=== PATIENT | male | born 1950 | race Caucasian/White ===

== ENCOUNTER 2017-10-17 09:34 | Emergency (ER) | payer MEDICARE, OTHER ==
[2015-12-06 11:47] VITALS: Ht 175.3 cm; Wt 77.1 kg
[~2017-10-17] VITALS: Ht 175.3 cm; Wt 77.1 kg
[~2017-10-17 09:34] MED LIST: ASP325 PO; ASPI-274 PO; ASPI-757 PO; AZIT-18 PO; CEF300 PO; CLOP75TA PO; CLOP75TA43 PO; DIP25 PO; FEN145 PO; FLU60SYR30 IM ONLY; GLY25 PO; HUMALOG SC; INSU100C14 SQ; INSU100I36 SQ; LANI SQ; LANI SUBQ; LEV2I PO; LEVI SUBQ; LEVO-3 PO; LEVO75TA73 PO; LOSA100T67 PO; LOSA50TA72 PO; METF-420 PO; METF10002 PO; METO1TAB19 PO; METO50TA19 PO; NITROGLYCERIN; NOVOLOG SUBQ; OLME40TA17 PO; PRE50 PO; PREG75CA60 PO; ROS10 PO; ROSI1TAB PO; ROSU20TA23 PO; [UNRECOGNIZED DRUG - CODE] PO
--- NOTE | 2017-10-17 09:54 | ER Report ---
History and Physical Time Seen By : 09:50 Hx. of Stated Complaint: CHAPARRITA FROM PT REPORTS PT "STUMBLED" AT PT, HIGH BP AT PT. PT REPORTS NO SYMPTOMS, "DON'T KNOW WHY I'M HERE". HX OF MULTIPLE STROKES AND MIS HPI/ROS CHIEF COMPLAINT: elevated blood pressure, stumbling HISTORY OF PRESENT ILLNESS: This is a 66 year old male. He was at physical therapy. He always has some elevated blood pressure, and usually decreases with his PT. Unsure why this is. He takes Losartan and Metoprolol on a regular basis and has not missed any medicines. He has type 2 diabetes and admits that he does not actively control this. He was stumbled in PT and with the elevated blood pressure, they elected to cancel his appointment and have him come the the ER for further evaluation. History of multiple strokes and cardiovascular disease. He currently has no symptoms. Denies headaches, dizziness, vision changes, weakness or numbness. No chest pain, palpitations, or shortness of breath. No recent illness, fevers or cough. Allergies: Coded Allergies: No Known Drug Allergies (Verified , 10/17/17) Home Meds Active Scripts Rosuvastatin Calcium (CRESTOR) 20 Mg Tablet, 20 MG PO QDAY, #90 TAB Prov:JORGITO LIZ MD 10/17/17 Levothyroxine Sodium (LEVOTHYROXINE SODIUM) 75 Mcg Tablet, 75 MCG PO QDAY, #90 TAB Prov:JORGITO LIZ MD 09/05/17 Pregabalin (LYRICA) 75 Mg Capsule, 1 CAP PO BID, #180 CAPSULE 4 Refills Prov:JORGITO LIZ MD 08/02/17 Metformin Hcl (METFORMIN HCL) 1,000 Mg Tablet, 1 TAB PO BID, #180 TAB 3 Refills Prov:JORGITO LIZ MD 07/28/17 Clopidogrel Bisulfate (PLAVIX) 75 Mg Tablet, 1 TAB PO QDAY, #90 TAB 4 Refills Prov:JORGITO LIZ MD 07/11/17 Reported Medications Metoprolol Succinate (METOPROLOL SUCCINATE) 50 Mg Tab.er.24h, 1 TAB PO QDAY, TAB 02/09/17 Losartan Potassium (LOSARTAN POTASSIUM) 100 Mg Tablet, 50 MG PO QDAY 02/09/17 Insulin Detemir (LEVEMIR) 100 Unit/Ml Injs, 65 UNIT SUBQ 02/09/17 Aspirin (ASPIRIN) 325 Mg Tablet, 325 MG PO QDAY, TAB 02/09/17 Reviewed Nurses Notes: Yes Hx Smoking: Yes Hx Substance Use Disorder: No Hx Alcohol Use: No Constitutional Vital Sign - Last 24 Hours 10/17/17 10/17/17 10/17/17 10/17/17 09:35 09:42 09:49 10:00 Temp 98.6 Pulse 72 73 Resp 16 B/P (MAP) 159/109 159/109 (126) 156/87 (110) Pulse Ox 94 95 O2 Delivery Room Air 10/17/17 10/17/17 10/17/17 10/17/17 10:04 10:09 10:29 10:30 Pulse 72 71 71 B/P (MAP) 132/74 (93) Pulse Ox 97 94 93 10/17/17 10/17/17 10/17/17 10/17/17 10:34 10:54 11:00 11:09 Pulse 71 69 B/P (MAP) 140/79 (99) Pulse Ox 93 93 93 10/17/17 11:29 B/P (MAP) 146/84 (104) Physical Exam General Appearance: The patient is alert. No acute distress. Eyes: Pupils are equal, round. Reactive to light. No pallor, injection or icterus. Extraocular movements are intact. No nystagmus. ENT: Mucous membranes are moist. Normal oral mucosa. Posterior oropharynx is normal. Normal tympanic membranes and canals. Neck: Supple and non tender. No lymphadenopathy. Respiratory: Breathing easily and unlabored. Lungs are clear to auscultation. Cardiovascular: Regular rate and rhythm. No murmurs, gallops or rubs. Normal capillary refill. No edema. Gastrointestinal: Abdomen is soft and non tender. Nondistended. Normal active bowel sounds. Neurological: Alert and oriented x3. No focal neurologic deficits Skin: Warm and dry. No rashes. Musculoskeletal: Extremities are nontender. Full range of motion. No tenderness in palpation of the cervical, thoracic and lumbar spine. DIFFERENTIAL DIAGNOSIS: After history and physical exam, differential diagnosis was considered for elevated blood pressure, although no current symptoms. Will watch and add antihypertensive in as needed. Medical Decision Making Data Points Result Diagram: 10/17/17 0950 10/17/17 0950 Laboratory Hematology Test 10/17/17 09:50 10/17/17 10:01 Red Blood Count 5.55 M/uL (4.00-5.60) Mean Corpuscular Volume 87.4 fL (80.0-96.0) Mean Corpuscular Hemoglobin 29.3 pg (26.0-33.0) Mean Corpuscular Hemoglobin Concent 33.6 g/dL (32.0-36.0) Red Cell Distribution Width 15.0 % (11.5-14.5) Mean Platelet Volume 9.0 fL (7.2-11.1) Neutrophils (%) (Auto) 67.7 % (39.4-72.5) Lymphocytes (%) (Auto) 20.0 % (17.6-49.6) Monocytes (%) (Auto) 8.0 % (4.1-12.4) Eosinophils (%) (Auto) 3.1 % (0.4-6.7) Basophils (%) (Auto) 1.2 % (0.3-1.4) Nucleated RBC Relative Count (auto) 0.0 /100WBC Neutrophils # (Auto) 5.4 K/uL (2.0-7.4) Lymphocytes # (Auto) 1.6 K/uL (1.3-3.6) Monocytes # (Auto) 0.6 K/uL (0.3-1.0) Eosinophils # (Auto) 0.2 K/uL (0.0-0.5) Basophils # (Auto) 0.1 K/uL (0.0-0.1) Nucleated RBC Absolute Count (auto) 0.00 K/uL Peripheral Blood Smear Yes Y/N Sodium Level 139 mmol/L (137-145) Potassium Level 3.9 mmol/L (3.5-5.0) Chloride Level 102 mmol/L (98-107) Carbon Dioxide Level 23 mmol/L (22-30) Blood Urea Nitrogen 12 mg/dl (9-21) Creatinine 0.80 mg/dl (0.66-1.25) Glomerular Filtration Rate Calc > 60.0 Random Glucose 195 mg/dl (75-110) Calcium Level 9.4 mg/dl (8.4-10.2) Total Bilirubin 0.4 mg/dl (0.2-1.3) Aspartate Amino Transf (AST/SGOT) 21 U/L (0-35) Alanine Aminotransferase (ALT/SGPT) 29 U/L (0-56) Alkaline Phosphatase 121 U/L (0-126) Troponin I < 0.012 ng/ml Total Protein 7.2 gm/dl (6.3-8.2) Albumin 4.1 g/dl (3.5-5.0) Whole Blood Glucose 207 mg/DL (75-110) Chemistry Test 10/17/17 09:50 10/17/17 10:01 White Blood Count 8.0 k/uL (4.5-11.0) Red Blood Count 5.55 M/uL (4.00-5.60) Hemoglobin 16.3 g/dL (14.0-18.0) Hematocrit 48.5 % (42.0-52.0) Mean Corpuscular Volume 87.4 fL (80.0-96.0) Mean Corpuscular Hemoglobin 29.3 pg (26.0-33.0) Mean Corpuscular Hemoglobin Concent 33.6 g/dL (32.0-36.0) Red Cell Distribution Width 15.0 % (11.5-14.5) Platelet Count 170 K/uL (150-450) Mean Platelet Volume 9.0 fL (7.2-11.1) Neutrophils (%) (Auto) 67.7 % (39.4-72.5) Lymphocytes (%) (Auto) 20.0 % (17.6-49.6) Monocytes (%) (Auto) 8.0 % (4.1-12.4) Eosinophils (%) (Auto) 3.1 % (0.4-6.7) Basophils (%) (Auto) 1.2 % (0.3-1.4) Nucleated RBC Relative Count (auto) 0.0 /100WBC Neutrophils # (Auto) 5.4 K/uL (2.0-7.4) Lymphocytes # (Auto) 1.6 K/uL (1.3-3.6) Monocytes # (Auto) 0.6 K/uL (0.3-1.0) Eosinophils # (Auto) 0.2 K/uL (0.0-0.5) Basophils # (Auto) 0.1 K/uL (0.0-0.1) Nucleated RBC Absolute Count (auto) 0.00 K/uL Peripheral Blood Smear Yes Y/N Glomerular Filtration Rate Calc > 60.0 Calcium Level 9.4 mg/dl (8.4-10.2) Total Bilirubin 0.4 mg/dl (0.2-1.3) Aspartate Amino Transf (AST/SGOT) 21 U/L (0-35) Alanine Aminotransferase (ALT/SGPT) 29 U/L (0-56) Alkaline Phosphatase 121 U/L (0-126) Troponin I < 0.012 ng/ml Total Protein 7.2 gm/dl (6.3-8.2) Albumin 4.1 g/dl (3.5-5.0) Whole Blood Glucose 207 mg/DL (75-110) EKG/Imaging EKG Interpretation 12 lead EKG: Rhythm: Sinus rhythm with first-degree AV block, rate 72 [place]: normal QRS: normal ST segments: normal Imaging CHEST PA AND LAT COMPARISON: None. HISTORY: Elevated blood pressure, cough FINDINGS: CARDIAC/VASC: No cardiac silhouette abnormality or cardiomegaly. Unremarkable pulmonary vasculature. Intact sternotomy wires. Ascending aorta markers from previous CABG. MEDIASTINUM: No visible mass or adenopathy. LUNGS/PLEURA: No pneumothorax. No significant pulmonary parenchymal abnormalities. No effusion or pleural thickening. BONES: No fracture or visible bony lesion. OTHER:Negative. IMPRESSION: Sequela of prior CABG without evidence of acute cardiopulmonary pathology. Report Dictated By: Donte Shannon at 10/17/2017 10:[address] scan without contrast COMPARISONS: Report from exam dated December 04, 2015 ADDITIONAL PERTINENT HISTORY: Elevated blood pressure. TECHNIQUE: Multiple axial images were obtained from the skull base to the vertex without IV contrast. One of the following dose optimization techniques was utilized in the performance of this exam: Automated exposure control; adjustment of the mA and/or kV according to the patient's size; or use of an iterative reconstruction technique. Specific details can be referenced in the facility's radiology CT exam operational policy. FINDINGS: Midline shift: Negative Ventricles: Mild enlargement of the lateral and third ventricles, stable from previous exam. Brain parenchyma: Patchy hypoattenuation within the periventricular and subcortical white matter, nonspecific but likely representing small vessel ischemic change on a chronic basis. No intraparenchymal hemorrhage. Extra-axial spaces: Mild cerebral atrophy. Intracranial vasculature: Cavernous internal carotid artery calcifications. Otherwise negative Osseous structures: Negative Paranasal sinuses and mastoid air cells: Moderate lobular mucosal thickening involving both maxillary sinuses. Otherwise negative Surrounding soft tissues and orbits: Negative IMPRESSION: 1. Age related changes as described above. 2. No evidence of acute intracranial pathology. Report Dictated By: Wyatt Faust MD at 10/17/2017 10:46 AM ED Course/Re-evaluation Clinical Indication for ER IV: IV Access ED Course Blood pressure came down without need for any medication. Labs, EKG and imaging negative. He will follow-up with primary care. Decision to Disposition Date: Oct 17, 2017 Decision to Disposition Time: 11:30 Depart Departure Latest Vital Signs Vital Signs Date Time Temp Pulse Resp B/P (MAP) Pulse Ox O2 Delivery O2 Flow Rate FiO2 10/17/17 11:29 146/84 (104) 10/17/17 11:09 69 93 10/17/17 09:35 98.6 16 Room Air Impression: Primary Impression: Hypertension Condition: Improved Disposition: HOME OR SELF-CARE Patient Instructions: Hypertension (ED) Additional Instructions: With the exception of the initial blood pressure reading and one other, the blood pressure readings have been normal or slightly elevated while here in the ER. No changes to medications at this time. Follow-up with Dr. Rice as planned. Keep on going with your physical therapy and home. Problem Qualifiers Primary Impression: Hypertension Hypertension type: essential hypertension Qualified Codes: I10 - Essential ( primary) hypertension JUSTIN MIDDLETON MD Oct 17, 2017 09:54
[2017-10-17] MEDS ORDERED: LABETALOL HCL 20 MG/4 ML SYR IVP ONE (09:55)
[2017-10-17] MEDS ORDERED: LABETALOL HCL 100 MG/20ML VIAL IVP ONE (10:05)
[2017-10-17 10:26] LABS: PLATELET COUNT, AUTOMATED 170 K/uL (150-450)
--- NOTE | 2017-10-17 10:36 | RADIOLOGY IMAGING REPORT ---
FACILITY: [facility] - [place] PATIENT NAME: Toribio Angel : 1950 MR: [id number] V: [id number] EXAM DATE: ORDERING PHYSICIAN: JUSTIN MIDDLETON TECHNOLOGIST: Location: [facility] [place] Patient: Toribio Angel : 1950 Visit/Account:[id number] Date of Sevice: 10/17/2017 CHEST PA AND LAT COMPARISON: None. HISTORY: Elevated blood pressure, cough FINDINGS: CARDIAC/VASC: No cardiac silhouette abnormality or cardiomegaly. Unremarkable pulmonary vasculatu re. Intact sternotomy wires. Ascending aorta markers from previous CABG. MEDIASTINUM: No visible mass or adenopathy. LUNGS/PLEURA: No pneumothorax. No significant pulmonary parenchymal abnormalities. No effusion or p leural thickening. BONES: No fracture or visible bony lesion. OTHER:Negative. IMPRESSION: Sequela of prior CABG without evidence of acute cardiopulmonary pathology. Report Dictated By: Donte Shannon at 10/17/2017 10:30 AM Report E-Signed By: Donte Shannon at 10/17/2017 10:31 AM WSN:[id number]
--- NOTE | 2017-10-17 10:56 | RADIOLOGY IMAGING REPORT ---
FACILITY: [facility] - [place] PATIENT NAME: Toribio Angel : 1950 MR: [id number] V: [id number] EXAM DATE: ORDERING PHYSICIAN: JUSTIN MIDDLETON TECHNOLOGIST: Location: [facility] Patient: Toribio Angel : 1950 Visit/Account:[id number] Date of Sevice: 10/17/[address] scan without contrast COMPARISONS: Report from exam dated December 04, 2015 ADDITIONAL PERTINENT HISTORY: Elevated blood pressure. TECHNIQUE: Multiple axial images were obtained from the skull base to the vertex without IV contrast . One of the following dose optimization techniques was utilized in the performance of this exam: Aut omated exposure control; adjustment of the mA and/or kV according to the patient's size; or use of an iterative reconstruction technique. Specific details can be referenced in the facility's radiology CT exam operational policy. FINDINGS: Midline shift: Negative Ventricles: Mild enlargement of the lateral and third ventricles, stable from previous exam. Brain parenchyma: Patchy hypoattenuation within the periventricular and subcortical white matter, no nspecific but likely representing small vessel ischemic change on a chronic basis. No intraparenchym al hemorrhage. Extra-axial spaces: Mild cerebral atrophy. Intracranial vasculature: Cavernous internal carotid artery calcifications. Otherwise negative Osseous structures: Negative Paranasal sinuses and mastoid air cells: Moderate lobular mucosal thickening involving both maxillar y sinuses. Otherwise negative Surrounding soft tissues and orbits: Negative IMPRESSION: 1. Age related changes as described above. 2. No evidence of acute intracranial pathology. Report Dictated By: Wyatt Faust MD at 10/17/2017 10:46 AM Report E-Signed By: Wyatt Faust MD at 10/17/2017 10:52 AM WSN:[id number]
[2017-10-17 11:29] VITALS: BP 146/84
--- NOTE | 2017-10-17 11:46 | EKG ---
FACILITY: [facility] PATIENT NAME: KAREN SOLORIO : [id number] MR: [id number] V: [id number] EXAM DATE: ORDERING PHYSICIAN: JUSTIN MIDDLETON TECHNOLOGIST: RUPAL Meier Reason : HTN Blood Pressure : / mmHG Vent. Rate : 072 BPM Atrial Rate : 072 BPM P-R Int : 222 ms QRS Dur : 096 ms QT Int : 398 ms P-R-T Axes : 023 066 059 degrees QTc Int : 435 ms Sinus rhythm with 1st degree AV block Low voltage QRS No ST-T abnormalities When compared with ECG of 04-DEC-2015 18:33, Relatively unchanged, but the prvious has baseline artifact Confirmed by JUDY KEITH ([id number]) on 10/17/2017 3:54:33 PM Referred By: Confirmed By:JUDY KEITH
[2017-10-17] MEDS ORDERED: ROSU20TA23 PO (15:05)
== END 2017-10-17 11:40 | disposition home or self-care (01) ==
LOC: ER 09:34
DX: I10 Essential (primary) hypertension (principal); I44.0 Atrioventricular block, first degree; G31.9 Degenerative disease of nervous system, unspecified
CPT/HCPCS: 36416; 70450; 71046; 82040; 82247; 82310; 82374; 82435; 82565; 82947; 82948; 84075; 84132; 84155; 84295; 84450; 84460; 84484; 84520; 85025; 93005; 99284

== ENCOUNTER 2017-10-28 09:00 | Outpatient (RCR) | payer MEDICARE, OTHER ==
[2015-12-06 11:47] VITALS: BMI 24.1
--- NOTE | 2017-08-08 10:12 | PT PLAN OF CARE ---
Physician: Ritchie Robison MD Patient is being seen: 2x/week Therapist: Suraj Fontenot, PT, DPT Medical Diagnosis: CVA Treatment Diagnosis: same, altered gait, decreased R LE strength Date of Onset: 03/27/17 Date of Initial Evaluation: 04/27/17 Date patient was last seen: 08/08/17 Number of treatments: 27 Number of cancellations/No shows: 0 INTERVENTIONS: Manual Therapy/STM/MET Strengthening/condition Ice/Heat Range of Motion Spinal Stabilization Work Hardening/Cond Stretching Neuromuscular Re-ed Closed Chain Program Electrical Stim Posture/Body mechanics Gait Trg/Balance Trg Home Exercise Program Therapeutic Activities GOALS: 6 weeks: Pt will improve R hip flexion, abduction, adduction, extension, R knee flexion and extension, R ankle DF and PF from baseline to 4+/5 or greater to improve function and QOL. 6 weeks: Pt will be able to ambulate with increased R hip flexion and R knee flexion and decreased R knee hyperextension with R AFO donned to improve gait mechanics and decrease falls. 6 weeks: Pt will improve Tinetti Gait and Balance from to or greater to decrease fall risk and improve QOL. 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 He reports that he feels like he should be walking better than he is currently. He states that he typically has his falls transitioning from a sitting position to a standing position. He reports that he feels like his activity level is about the same as it was prior to the CVA. He states that he continues to have good days and bad days with fatigue. He continues to demonstrate R LE weakness as compared to his L LE, however, his R LE weakness is decreased in a non-weight bearing position and is increased in a weight bearing position. With the cane in his L UE and his R knee brace donned, he demonstrated equal step lengths, decreased R heel strike, normal base of support, decreased hip flexion, knee flexion, and ankle DF resulting in toe drag, increased control, and decreased LOB. He is independent on his HEP. We will probably see him 3-10 sessions to determine that he has maintained his gait changes and is independent on his HEP prior to discharge. Posture: He demonstrates increased B rounded shoulders, forward head position, increased thoracic kyphosis, and decreased lumbar lordosis. ROM: L hip flexion, abduction, adduction, extension, L knee flexion and extension, and L ankle DF and PF: WNL's with no pain. R hip flexion, extension , abduction, R knee flexion and extension: full AROM with gravity eliminated, R hip adduction, and R ankle PF and DF: WNL's. Strength: L hip flexion, abduction, adduction, extension, L knee flexion and extension, and L ankle DF and PF: 4+/5 to 5/5. R hip flexion, extension, abduction: 3/5, R knee flexion and extension: 3/5, R hip adduction, and R ankle PF and DF: 4+/5 (in non-weight bearing positions and DF less than 3/5 in functional standing position). Special Tests: Tinetti gait and balance: 26/28. 6 minute walk test: 990 feet. Hua balance: 50/56 Mobility: Supervision with cane as AD If you have any questions, please contact me at [phone]. Thank you, Suraj Fontenot, PT, DPT LIZZETTED
--- NOTE | 2017-09-29 11:02 | PT PLAN OF CARE ---
Physician: MARIELA WARD MD Patient is being seen: 2x/week Therapist: Suraj Fontenot, PT, DPT Medical Diagnosis: CVA Treatment Diagnosis: same, altered gait, decreased R LE strength Date of Onset: 03/27/17 Date of Initial Evaluation: 04/27/17 Date patient was last seen: 09/29/17 Number of treatments: 37 Number of cancellations/No shows: 3 INTERVENTIONS: Manual Therapy/STM/MET Strengthening/condition Ice/Heat Range of Motion Spinal Stabilization Work Hardening/Cond Stretching Neuromuscular Re-ed Closed Chain Program Electrical Stim Posture/Body mechanics Gait Trg/Balance Trg Home Exercise Program Therapeutic Activities GOALS: 6 weeks: Pt will improve R hip flexion, abduction, adduction, extension, R knee flexion and extension, R ankle DF and PF from baseline to 4+/5 or greater to improve function and QOL. Not Met 6 weeks: Pt will be able to ambulate with increased R hip flexion and R knee flexion and decreased R knee hyperextension with R AFO donned to improve gait mechanics and decrease falls. 6 weeks: Pt will improve Tinetti Gait and Balance from to or greater to decrease fall risk and improve QOL. 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 He reports that he feels like he is walking better as long as he is not fatigued. He reports that he started eating a banana in the morning, which has helped with energy, overall attitude, and gait mechanics. He reports that his blood pressure continues to be better. Prior to the session his BP was 130/90, which continues to be high and we would like you all to view his current medications or other causes to elevated BP. Furthermore, his blood pressure does drop with exercise both systolically and diastolically, however, it is not significant enough to stop exercise. He has demonstrated improvements with R LE strength, decreased toe drag during gait, and improved overall balance. We will probably see him 3-10 sessions to determine an effective home exercise program and ensure that he is independent on the program prior to discharge Posture: He demonstrates increased B rounded shoulders, forward head position, increased thoracic kyphosis, and decreased lumbar lordosis. ROM: L hip flexion, abduction, adduction, extension, L knee flexion and extension, and L ankle DF and PF: WNL's with no pain. R hip flexion, extension , abduction, R knee flexion and extension: full AROM with gravity eliminated, R hip adduction, and R ankle PF and DF: WNL's. Strength: L hip flexion, abduction, adduction, extension, L knee flexion and extension, and L ankle DF and PF: 4+/5 to 5/5. R hip flexion, extension, abduction: 4/5, R knee flexion and extension: 4/5, R hip adduction, and R ankle PF and DF: 4+/5 (in non-weight bearing positions and DF less than 4/5 in functional standing position). Special Tests: Tinetti gait and balance: . 6 minute walk test: 990 feet. Hua balance: 50/56 Mobility: Supervision with cane as AD If you have any questions, please contact me at [phone]. Thank you, Suraj Fontenot, PT, DPT LIZZETTED
--- NOTE | 2017-10-28 12:55 | PT PLAN OF CARE ---
Physician: Kyler Rice MD Patient is being seen: 2x/week Therapist: Suraj Fontenot, PT, DPT Medical Diagnosis: CVA Treatment Diagnosis: same, altered gait, decreased R LE strength Date of Onset: 03/27/17 Date of Initial Evaluation: 04/27/17 Date patient was last seen: 10/28/17 Number of treatments: 45 Number of cancellations/No shows: 3 INTERVENTIONS: Manual Therapy/STM/MET Strengthening/condition Ice/Heat Range of Motion Spinal Stabilization Work Hardening/Cond Stretching Neuromuscular Re-ed Closed Chain Program Electrical Stim Posture/Body mechanics Gait Trg/Balance Trg Home Exercise Program Therapeutic Activities GOALS: 6 weeks: Pt will improve R hip flexion, abduction, adduction, extension, R knee flexion and extension, R ankle DF and PF from baseline to 4+/5 or greater to improve function and QOL. Progressed well; will met in future 6 weeks: Pt will be able to ambulate with increased R hip flexion and R knee flexion and decreased R knee hyperextension with R AFO donned to improve gait mechanics and decrease falls. MET 6 weeks: Pt will improve Tinetti Gait and Balance from to or greater to decrease fall risk and improve QOL. 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 He reports that he is doing well. He reports that he has not been doing his home exercise program. He does report that he has been walking more around his home and shop. He reports minimal soreness in his R knee. Other than that, he reports that he feels great. Furthermore, he demonstrated excellent BP the last two sessions (110/78). Toribio has demonstrated significant improvements with the following: endurance, increased R LE strength, increased gait mechanics, increased core, and L LE strength, and improved QOL. Furthermore, he is independent on his HEP. As a result, he will be discharged from PT. Posture: He demonstrates increased B rounded shoulders, forward head position, increased thoracic kyphosis, and decreased lumbar lordosis. ROM: L hip flexion, abduction, adduction, extension, L knee flexion and extension, and L ankle DF and PF: WNL's with no pain. R hip flexion, extension , abduction, R knee flexion and extension: full AROM with gravity eliminated, R hip adduction, and R ankle PF and DF: WNL's. Strength: L hip flexion, abduction, adduction, extension, L knee flexion and extension, and L ankle DF and PF: 4+/5 to 5/5. R hip flexion, extension, abduction: 4/5, R knee flexion and extension: 4/5, R hip adduction, and R ankle PF and DF: 4+/5 (in non-weight bearing positions and DF less than 4/5 in functional standing position). Special Tests: Tinetti gait and balance: . 6 minute walk test: 990 feet. Hua balance: 50/56 Mobility: Supervision with cane as AD If you have any questions, please contact me at [phone]. Thank you, Suraj Fontenot, PT, DPT LIZZETTED
[2017-10-31] MEDS ORDERED: LOSA100T67 PO (12:59)
[2017-10-31] MEDS ORDERED: RANI-324 PO (14:46)
== END 2017-10-30 ==
LOC: PT 09:00
PROVIDERS: ATTEND Family Medicine
DX: M62.81 Muscle weakness (generalized) (principal); R29.6 Repeated falls; Z86.73 Personal history of transient ischemic attack (TIA), and cerebral infarction without residual deficits; F17.210 Nicotine dependence, cigarettes, uncomplicated; R20.0 Anesthesia of skin; R26.89 Other abnormalities of gait and mobility; M25.561 Pain in right knee; E11.40 Type 2 diabetes mellitus with diabetic neuropathy, unspecified; Z82.3 Family history of stroke

== ENCOUNTER → 2017-10-31 | Outpatient (CLI) | payer MEDICARE, OTHER ==
[2015-12-06 11:47] VITALS: BMI 24.1
[~2017-10-31] MED LIST changes: +RANI-324 PO
[2017-10-31 16:22] LABS: PLATELET COUNT, AUTOMATED 195 K/uL (150-450)
== END ==
LOC: LAB 15:01
PROVIDERS: ATTEND Internal Medicine
DX: E11.42 Type 2 diabetes mellitus with diabetic polyneuropathy (principal); Z82.3 Family history of stroke
CPT/HCPCS: 36415; 83036; 85025

== ENCOUNTER → 2018-01-18 | Outpatient (CLI) | payer MEDICARE, OTHER ==
[2015-12-06 11:47] VITALS: BMI 24.1
[~2018-01-18] MED LIST changes: -METF-420 PO; +METF-421 PO; -RANI-324 PO; +RANI-366 PO
== END ==
LOC: LAB 08:40
PROVIDERS: ATTEND Internal Medicine
DX: E11.9 Type 2 diabetes mellitus without complications (principal); I10 Essential (primary) hypertension; E03.9 Hypothyroidism, unspecified; I25.10 Atherosclerotic heart disease of native coronary artery without angina pectoris; R31.9 Hematuria, unspecified
CPT/HCPCS: 81001; 82043

== ENCOUNTER → 2018-01-19 | Outpatient (CLI) | payer MEDICARE, OTHER ==
[2015-12-06 11:47] VITALS: BMI 24.1
--- NOTE | 2018-01-19 10:02 | RADIOLOGY IMAGING REPORT ---
[place] [facility] [place] NAME: Toribio Angel : 1950 MR: [id number] V: [id number] EXAM DATE: ORDERING PHYSICIAN: WANG MOISE TECHNOLOGIST: Location: [facility] - [place] Patient: Toribio Angel : 1950 Visit/Account:[id number] Date of Sevice: 01/19/2018 ABDOMEN/PELVIS W/O CONTRAST HISTORY: Hematuria TECHNIQUE: Axial images acquired through the abdomen/pelvis. Coronal and sagittal reformatting also performed. No IV contrast administered. Dose Lowering Technique One of the following dose optimization techniques was utilized in the performance of this exam: Autom ated exposure control; adjustment of the mA and/or kV according to the patient's size; or use of an i terative reconstruction technique. Specific details can be referenced in the facility's radiology C T exam operational policy. COMPARISON: Abdomen ultrasound May 14, 2010 FINDINGS: Visualized lung bases: Negative. Hepatobiliary: Negative. Spleen: Negative. Adrenals: Negative. Pancreas: Negative. Kidneys ureters and bladder: There is mild to moderate perinephric stranding noted bilaterally. Ther e is no evidence of urolithiasis, hydronephrosis or hydroureter. There is a tiny punctate calcificat ion seen along the dependent portion of the bladder. This may be a calcification within the bladder wall or tiny calcification within the bladder lumen. The bladder is not ideally distended with urine . There appears to be at least moderate thickening of the anterior aspect of the bladder wall Genitalia: The prostate gland impinges upon the floor the bladder GI: There Is extensive diverticulosis left-sided colon although no CT evidence of acute diverticulit is. The appendix is visualized and does not appear inflamed. There is a large duodenal diverticulum . Vessels/spaces/nodes: There are moderate vascular calcifications about the abdomen and pelvis. Bones/soft tissues: There is a femoral magdi noted in the proximal right femur Additional findings: None pertinent. IMPRESSION: There is moderate perinephric stranding bilaterally. No evidence of urolithiasis, hydronephrosis or hydroureter. There is a tiny punctate calcination paul ng the dependent portion of the bladder. This may be a calcination within the bladder wall or tiny c alcification within the bladder lumen. The bladder is not well-distended with urine although there appears to be at least moderate thickenin g of the anterior aspect the bladder wall. This could be related to urinary tract infection although given the clinical history of hematuria cystoscopy may be helpful Extensive diverticulosis of the left-sided colon although no CT evidence of acute diverticulitis Moderate vascular calcifications throughout the abdomen and pelvis Report Dictated By: Annel Castillo MD at 01/19/2018 9:51 AM Report E-Signed By: Annel Castillo MD at 01/19/2018 9:59 AM CALISTAN:AMICIVKrissy
== END ==
LOC: CT 04:55
PROVIDERS: ATTEND Internal Medicine
DX: K57.30 Diverticulosis of large intestine without perforation or abscess without bleeding (principal); N40.1 Benign prostatic hyperplasia with lower urinary tract symptoms; I25.10 Atherosclerotic heart disease of native coronary artery without angina pectoris
CPT/HCPCS: 74176

== ENCOUNTER → 2018-02-01 | Outpatient (CLI) | payer MEDICARE, OTHER ==
[2015-12-06 11:47] VITALS: BMI 24.1
[~2018-02-01] MED LIST changes: +IOPAMIDOL 76% 50 ML INFUS BTL 50 ML ONE; +IOPAMIDOL 76% 75 ML INFUS BTL 75 ML ONE; +NS 0.9% 25 ML BAG 50 ML ONE
--- NOTE | 2018-02-01 14:14 | RADIOLOGY IMAGING REPORT ---
FACILITY: [facility] PATIENT NAME: Toribio Angel : 1950 MR: [id number] V: [id number] EXAM DATE: ORDERING PHYSICIAN: JOSE RAUL KAYE TECHNOLOGIST: Location: [facility] - [place] Patient: Toribio Angel : 1950 Visit/Account:[id number] Date of Sevice: 02/01/2018 ABDOMEN/PELVIS W/WO CONTRAST HISTORY: History of kidney stones, hematuria TECHNIQUE: Axial images acquired through the abdomen/pelvis both with and without IV contrast.. Elvin nal and sagittal reformatting also performed. Dose Lowering Technique One of the following dose optimization techniques was utilized in the performance of this exam: Autom ated exposure control; adjustment of the mA and/or kV according to the patient's size; or use of an i terative reconstruction technique. Specific details can be referenced in the facility's radiology C T exam operational policy. CONTRAST: 125 mL Isovue-370 COMPARISON: CT abdomen and pelvis January 19, 2018 FINDINGS: Visualized lung bases: Tiny calcified nodules in the lower lobes Hepatobiliary: Mild diffuse hepatic steatosis Spleen: Negative. Adrenals: Negative. Pancreas: Small calcification along the anterior aspect junction of the head and body the pancreas a ppears stable Kidneys ureters and bladder: Small subcentimeter hypodensities in the right kidney may represent cyst s although are too small to characterize. Initially there is a vague wedge-shaped area of decreased perfusion in the inferolateral right kidney. The prior CT was performed without contrast therefore d irect comparison is difficult. Multiple perinephric stranding again noted bilaterally. There is a 1 mm calcification in the upper pole of the left kidney and an additional 1 mm calcification in the lo wer pole of the left kidney. Previously noted tiny punctate calcification along the dependent portio n the bladder on the prior study is no longer seen. This likely represented a calculus. There is mild bladder wall thickening. Genitalia: Prostate gland impinges upon the floor the bladder and contains coarse calcifications GI: Diverticulosis left-sided colon again seen although no CT evidence of acute diverticulitis. Brannon endix is visualized does not appear inflamed. Again noted large duodenal diverticulum. Vessels/spaces/nodes: Moderate vascular calcifications about the abdomen and pelvis Bones/soft tissues: Incompletely imaged is a right femoral magdi Additional findings: None pertinent. IMPRESSION: There is a vague wedge-shaped area of decreased perfusion in the inferolateral right kidney. The miladis or CT was performed without contrast Comparison is difficult. This could represent an area of focal infarct although differential diagnos is would include focal pyelonephritis less likely a mass lesion. Tiny nonobstructing calculi left renal collecting system Previous seen noted tiny punctate calcination along the dependent portion of the bladder is no longer seen and likely represented a calculus. Mild bladder wall thickening Additional chronic findings as described Report Dictated By: Annel Castillo MD at 02/01/2018 1:58 PM Report E-Signed By: Annel Castillo MD at 02/01/2018 2:10 PM WSN:[email or web address]
== END ==
LOC: CT 07:16
PROVIDERS: ATTEND Urology
DX: K86.89 Other specified diseases of pancreas (principal); N20.0 Calculus of kidney; N40.1 Benign prostatic hyperplasia with lower urinary tract symptoms; K57.30 Diverticulosis of large intestine without perforation or abscess without bleeding; I25.10 Atherosclerotic heart disease of native coronary artery without angina pectoris
CPT/HCPCS: 74178; Q9967

== ENCOUNTER 2018-04-10 13:28 | Emergency (ER) | payer MEDICARE, OTHER ==
[2015-12-06 11:47] VITALS: Wt 72.6 kg
--- NOTE | 2018-04-10 13:33 | ER Report ---
History and Physical Time Seen By MD: 13:33 HPI/ROS CHIEF COMPLAINT: Fall, right arm and leg weakness HISTORY OF PRESENT ILLNESS: 67-year-old male patient presents to emergency room with complaint of a fall. Patient states that Tuesday morning he was getting up and was walking at his cabin. He states that he fell landing on his right elbow. Patient states he has no pain. He states that he was not able to get up. He states he is not been able to move his right arm or his right leg since that time. Patient states he has numbness to his feet bilaterally, which is normal for him as he does have peripheral neuropathy secondary to diabetes. Patient states that he's not had any chest pain, shortness of breath, headache, nausea, vomiting or diarrhea. His states that he's had some incontinence of bladder. 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 REVIEW OF SYSTEMS: Respiratory: No cough, no dyspnea. Cardiovascular: No chest pain, no palpitations. Gastrointestinal: No vomiting, no abdominal pain. Musculoskeletal: As noted above Allergies: Coded Allergies: No Known Drug Allergies (Verified , 04/10/18) Home Meds Active Scripts Pregabalin (LYRICA) 75 Mg Capsule, 1 CAP PO BID, #180 CAPSULE 1 Refill Prov:WANG MOISE MD 02/08/18 Rosuvastatin Calcium (CRESTOR) 20 Mg Tablet, 20 MG PO QDAY, #90 TAB 3 Refills Prov:WANG MOISE MD 01/23/18 Levothyroxine Sodium (LEVOTHYROXINE SODIUM) 100 Mcg Tablet, 100 MCG PO QDAY, # 90 TAB 3 Refills Prov:WANG MOISE MD 01/11/18 Insulin Detemir (LEVEMIR) 100 Unit/Ml Injs, 35 UNIT SUBQ BID for 90 Days, #5 SYR 9 Refills Prov:WANG MOISE MD 12/29/17 Losartan Potassium (LOSARTAN POTASSIUM) 100 Mg Tablet, 50 MG PO QDAY, #90 TAB 3 Refills Prov:JORGITO LIZ MD 10/31/17 Metformin Hcl (METFORMIN HCL) 1,000 Mg Tablet, 1 TAB PO BID, #180 TAB 3 Refills Prov:JORGITO LIZ MD 07/28/17 Reported Medications Ranitidine Hcl (ZANTAC) 150 Mg Tablet, 150 MG PO BID, TAB 10/31/17 Metoprolol Succinate (METOPROLOL SUCCINATE) 50 Mg Tab.er.24h, 1 TAB PO QDAY, TAB 02/09/17 Aspirin (ASPIRIN) 325 Mg Tablet, 325 MG PO QDAY, TAB 02/09/17 Discontinued Scripts Clopidogrel Bisulfate (PLAVIX) 75 Mg Tablet, 1 TAB PO QDAY, #90 TAB 4 Refills Prov:JORGITO ILZ MD 07/11/17 Past Medical/Surgical History Patient has a past medical history of diabetes, high blood pressure, hyperlipidemia, peripheral neuropathy, reflux. Reviewed Nurses Notes: Yes Hx Smoking: Yes Smoking Status: Current: Every Day Smoker Hx Substance Use Disorder: No Hx Alcohol Use: No Constitutional Vital Sign - Last 24 Hours 04/10/18 04/10/18 04/10/18 04/10/18 13:30 13:31 13:43 13:58 Temp 98.0 Pulse 89 91 89 Resp 14 B/P (MAP) 115/67 115/67 (83) Pulse Ox 92 91 89 O2 Delivery Room Air Room Air Room Air 04/10/18 04/10/18 04/10/18 04/10/18 14:00 14:13 14:18 14:30 Pulse 90 91 B/P (MAP) 83/64 (70) 100/68 (79) Pulse Ox 91 90 O2 Delivery Room Air Room Air 04/10/18 04/10/18 04/10/18 04/10/18 14:33 14:48 15:00 15:03 Pulse 88 86 85 B/P (MAP) 109/62 (78) Pulse Ox 90 92 90 O2 Delivery Room Air Room Air Room Air 04/10/18 04/10/18 04/10/18 04/10/18 15:08 15:30 15:38 15:53 Pulse 82 81 78 B/P (MAP) 128/73 (91) Pulse Ox 92 90 91 O2 Delivery Room Air Room Air Room Air 04/10/18 04/10/18 04/10/18 04/10/18 16:00 16:08 16:23 16:30 Pulse 85 82 B/P (MAP) 141/101 (114) 147/82 (103) Pulse Ox 91 90 O2 Delivery Room Air Room Air 04/10/18 04/10/18 04/10/18 04/10/18 16:38 16:53 16:58 17:00 Pulse 81 86 84 B/P (MAP) 130/76 (94) Pulse Ox 91 91 92 O2 Delivery Room Air Room Air Room Air 04/10/18 04/10/18 04/10/18 04/10/18 17:13 17:30 18:00 18:20 Pulse 86 85 77 B/P (MAP) 171/94 (119) 155/89 (111) Pulse Ox 96 93 92 O2 Delivery Room Air Room Air 04/10/18 04/10/18 04/10/18 04/10/18 18:30 18:35 18:50 19:00 Pulse ? B/P (MAP) 134/83 (100) 152/90 (110) 04/10/18 04/10/18 04/10/18 04/10/18 19:05 19:20 19:30 19:50 Pulse ? B/P (MAP) 160/82 (108) 04/10/18 04/10/18 04/10/18 04/10/18 20:00 20:05 20:20 20:30 Pulse 80 77 B/P (MAP) 169/89 (115) 146/74 (98) Pulse Ox 94 93 04/10/18 20:35 Pulse 76 Pulse Ox 90 Intake and Output 04/10/18 04/10/18 04/11/18 15:00 23:00 07:00 Intake Total 1000 ml Output Total 300 ml Balance 700 ml Physical Exam General Appearance: The patient is alert, has no immediate need for airway protection and no signs of toxicity. Eyes: Pupils equal and round no pallor or injection. ENT, Mouth: Mucous membranes are moist. Tympanic membranes are pearly-dominguez, auditory canals are patent. Respiratory: There are no retractions, lungs are clear to auscultation. Cardiovascular: Regular rate and rhythm. Gastrointestinal: Abdomen is soft and non tender, no masses, bowel sounds normal. Neurological: Patient has weakness to the right arm and right leg, he is unable to grasp but was able to make very small movements of his fingers. Patient was not able to push it all with his right foot. Skin: Warm and dry, no rashes. Musculoskeletal: Neck is supple non tender. Extremities are nontender, nonswollen and have full range of motion. DIFFERENTIAL DIAGNOSIS: After history and physical exam differential diagnosis was considered for stroke, fracture, strain, SC. Medical Decision Making Data Points Result Diagram: 04/10/18 1320 04/10/18 1320 Laboratory Hematology Test 04/10/18 13:20 04/10/18 16:23 Red Blood Count 5.81 M/uL (4.00-5.60) Mean Corpuscular Volume 84.3 fL (80.0-96.0) Mean Corpuscular Hemoglobin 28.0 pg (26.0-33.0) Mean Corpuscular Hemoglobin Concent 33.2 g/dL (32.0-36.0) Red Cell Distribution Width 16.2 % (11.5-14.5) Mean Platelet Volume 8.9 fL (7.2-11.1) Neutrophils (%) (Auto) 67.0 % (39.4-72.5) Lymphocytes (%) (Auto) 21.9 % (17.6-49.6) Monocytes (%) (Auto) 8.3 % (4.1-12.4) Eosinophils (%) (Auto) 1.8 % (0.4-6.7) Basophils (%) (Auto) 1.0 % (0.3-1.4) Nucleated RBC Relative Count (auto) 0.0 /100WBC Neutrophils # (Auto) 5.9 K/uL (2.0-7.4) Lymphocytes # (Auto) 1.9 K/uL (1.3-3.6) Monocytes # (Auto) 0.7 K/uL (0.3-1.0) Eosinophils # (Auto) 0.2 K/uL (0.0-0.5) Basophils # (Auto) 0.1 K/uL (0.0-0.1) Nucleated RBC Absolute Count (auto) 0.00 K/uL Prothrombin Time 12.7 seconds (12.0-14.4) Prothromb Time International Ratio 0.96 Activated Partial Thromboplast Time 33 seconds (23-35) Sodium Level 143 mmol/L (137-145) Potassium Level 3.7 mmol/L (3.5-5.0) Chloride Level 105 mmol/L (98-107) Carbon Dioxide Level 24 mmol/L (22-30) Blood Urea Nitrogen 18 mg/dl (9-21) Creatinine 0.80 mg/dl (0.66-1.25) Glomerular Filtration Rate Calc > 60.0 Random Glucose 132 mg/dl (75-110) Calcium Level 9.7 mg/dl (8.4-10.2) Total Bilirubin 0.5 mg/dl (0.2-1.3) Aspartate Amino Transf (AST/SGOT) 23 U/L (0-35) Alanine Aminotransferase (ALT/SGPT) 22 U/L (0-56) Alkaline Phosphatase 74 U/L (0-126) Troponin I < 0.012 ng/ml Total Protein 7.4 g/dl (6.3-8.2) Albumin 4.6 g/dl (3.5-5.0) Urine Color Yellow Urine Clarity Clear Urine pH 5.0 pH (4.8-9.5) Urine Specific [place] 1.024 Urine Protein 30 mg/dL (NEGATIVE) Urine Glucose (UA) Negative mg/dL (NEGATIVE) Urine Ketones Trace mg/dL (NEGATIVE) Urine Blood Negative (NEGATIVE) Urine Nitrite Negative (NEGATIVE) Urine Bilirubin Small (NEGATIVE) Urine Urobilinogen 4.0 mg/dL (0.2-1.9) Urine Leukocyte Esterase Negative (NEGATIVE) Urine RBC <1 /HPF (0-2/HPF) Urine WBC None /HPF (0-5/HPF) Urine Squamous Epithelial Cells None /LPF (</=FEW) Urine Bacteria Negative /HPF (NONE-FEW) Urine Mucus None /HPF (NONE-FEW) Chemistry Test 04/10/18 13:20 04/10/18 16:23 White Blood Count 8.8 k/uL (4.5-11.0) Red Blood Count 5.81 M/uL (4.00-5.60) Hemoglobin 16.3 g/dL (14.0-18.0) Hematocrit 49.0 % (42.0-52.0) Mean Corpuscular Volume 84.3 fL (80.0-96.0) Mean Corpuscular Hemoglobin 28.0 pg (26.0-33.0) Mean Corpuscular Hemoglobin Concent 33.2 g/dL (32.0-36.0) Red Cell Distribution Width 16.2 % (11.5-14.5) Platelet Count 220 K/uL (150-450) Mean Platelet Volume 8.9 fL (7.2-11.1) Neutrophils (%) (Auto) 67.0 % (39.4-72.5) Lymphocytes (%) (Auto) 21.9 % (17.6-49.6) Monocytes (%) (Auto) 8.3 % (4.1-12.4) Eosinophils (%) (Auto) 1.8 % (0.4-6.7) Basophils (%) (Auto) 1.0 % (0.3-1.4) Nucleated RBC Relative Count (auto) 0.0 /100WBC Neutrophils # (Auto) 5.9 K/uL (2.0-7.4) Lymphocytes # (Auto) 1.9 K/uL (1.3-3.6) Monocytes # (Auto) 0.7 K/uL (0.3-1.0) Eosinophils # (Auto) 0.2 K/uL (0.0-0.5) Basophils # (Auto) 0.1 K/uL (0.0-0.1) Nucleated RBC Absolute Count (auto) 0.00 K/uL Prothrombin Time 12.7 seconds (12.0-14.4) Prothromb Time International Ratio 0.96 Activated Partial Thromboplast Time 33 seconds (23-35) Glomerular Filtration Rate Calc > 60.0 Calcium Level 9.7 mg/dl (8.4-10.2) Total Bilirubin 0.5 mg/dl (0.2-1.3) Aspartate Amino Transf (AST/SGOT) 23 U/L (0-35) Alanine Aminotransferase (ALT/SGPT) 22 U/L (0-56) Alkaline Phosphatase 74 U/L (0-126) Troponin I < 0.012 ng/ml Total Protein 7.4 g/dl (6.3-8.2) Albumin 4.6 g/dl (3.5-5.0) Urine Color Yellow Urine Clarity Clear Urine pH 5.0 pH (4.8-9.5) Urine Specific [place] 1.024 Urine Protein 30 mg/dL (NEGATIVE) Urine Glucose (UA) Negative mg/dL (NEGATIVE) Urine Ketones Trace mg/dL (NEGATIVE) Urine Blood Negative (NEGATIVE) Urine Nitrite Negative (NEGATIVE) Urine Bilirubin Small (NEGATIVE) Urine Urobilinogen 4.0 mg/dL (0.2-1.9) Urine Leukocyte Esterase Negative (NEGATIVE) Urine RBC <1 /HPF (0-2/HPF) Urine WBC None /HPF (0-5/HPF) Urine Squamous Epithelial Cells None /LPF (</=FEW) Urine Bacteria Negative /HPF (NONE-FEW) Urine Mucus None /HPF (NONE-FEW) Coagulation Test 04/10/18 13:20 Prothrombin Time 12.7 seconds Prothromb Time International Ratio 0.96 Activated Partial Thromboplast Time 33 seconds Urinalysis Test 04/10/18 16:23 Urine Color Yellow Urine Clarity Clear Urine pH 5.0 pH (4.8-9.5) Urine Specific Kane 1.024 Urine Protein 30 mg/dL (NEGATIVE) Urine Glucose (UA) Negative mg/dL (NEGATIVE) Urine Ketones Trace mg/dL (NEGATIVE) Urine Blood Negative (NEGATIVE) Urine Nitrite Negative (NEGATIVE) Urine Bilirubin Small (NEGATIVE) Urine Urobilinogen 4.0 mg/dL (0.2-1.9) Urine Leukocyte Esterase Negative (NEGATIVE) Urine RBC <1 /HPF (0-2/HPF) Urine WBC None /HPF (0-5/HPF) Urine Squamous Epithelial Cells None /LPF (</=FEW) Urine Bacteria Negative /HPF (NONE-FEW) Urine Mucus None /HPF (NONE-FEW) EKG/Imaging EKG Interpretation 12 lead EKG: Rhythm: normal sinus rhythm [place]: Rightward axis QRS: normal ST segments: normal When compared with ECG of 17-OCT-2017 09:39, No significant change was found Imaging EXAMINATION: CTA of the Neck with IV contrast CTA of the Head with IV contrast HISTORY: Weakness for 3 days and numbness. TECHNIQUE: Axial noncontrast images are taken from the skull base through the vertex. Sagittal and coronal reformatted images are also submitted. Overlapping thin sections were obtained during a bolus of IV contrast from the aortic arch through the vertex. Reconstruction of the source data set includes multiplanar 2D in the sagittal and coronal planes, and 3D coronal thin slab MIP series. Geological Technician images have been stored on PACS. Stenosis of the internal carotid arteries are calculated using NASCET criteria. One of the following dose optimization techniques was utilized in the performance of this exam: Automated exposure control; adjustment of the mA and/ or kV according to the patient's size; or use of an iterative reconstruction technique. Specific details can be referenced in the facility's radiology CT exam operational policy. CONTRAST: 75 mL of IV Isovue-370. COMPARISON: CT the head on 10/17/2017. h CTA: Aortic arch and great vessels: Minimal atherosclerotic calcific changes without focal abnormality. Right CCA / ICA: The right bulb area does show focal atherosclerotic calcific changes with approximately 50 percent stenosis. There is mild atherosclerotic us of changes seen in the cavernous sinus region of the internal carotid artery without significant stenosis. No other areas of stenosis. No aneurysm, dissection or filling defect. Left CCA / ICA: The left bulb area does show focal atherosclerotic calcific changes with approximately 40 percent stenosis. There is mild atherosclerotic us of changes seen in the cavernous sinus region of the internal carotid artery without significant stenosis. No other areas of stenosis. No aneurysm, dissection or filling defect. Vertebro-basilar: No aneurysm, dissection, filling defect. The distal left vertebral artery at the skull base does show focal atherosclerotic calcific changes with approximately 70 percent stenosis. No other areas of stenosis in either vertebral artery. [place]: No aneurysm, dissection, filling defect or stenosis. AGUILAR circulation: Negative. MCA circulation: Negative. VOLUMETRIC WEIGHER circulation: Negative. Additional non-angiographic findings: Brain shows no enhancing lesions or areas of abnormal enhancement. No abnormal density is identified. No indication of intracranial bleed, extra-axial fluid collection or hydrocephalus. Dominguez/white matter differentiation appears normal. Soft tissues the neck are unremarkable. Lung apices are clear. Bony structures show degenerative changes spine without acute abnormality or discrete lesion. IMPRESSION: 1. The brain shows no indication of acute abnormality. 2. CTA of the head and neck is fairly unremarkable. Both bulb areas of the carotid arteries do show areas of stenosis due to focal atherosclerotic calcific changes, 50 percent on the right and 40 percent on the left. The distal left vertebral artery also shows focal atherosclerotic calcific changes causing stenosis approximately 70 percent. Report Dictated By: Renard Mckeon at 04/10/2018 6:45 PM Report E-Signed By: Renard Mckeon at 04/10/2018 7:15 PM ORBITS single view HISTORY: Pre-MRI evaluate for foreign body. COMPARISON: None FINDINGS: No metallic foreign body overlying the orbits. IMPRESSION: 1. No metallic foreign body overlying the orbits. Report Dictated By: Jean-Paul Colon MD at 04/10/2018 2:42 PM Report E-Signed By: Jean-Paul Colon MD at 04/10/2018 2:43 PM Exam type: CHEST SINGLE AP History: weakness right arm and leg Comparison: October 17, 2017 Findings: There are sternotomy sutures has not. The cardiac silhouette does not appear enlarged. The lungs are free of acute effusions infiltrates or edema. There is no evidence of a pneumothorax or pneumomediastinum.. IMPRESSION: 1. No acute cardiopulmonary process seen Report Dictated By: Annel Castillo MD at 04/10/2018 2:22 PM Report E-Signed By: Annel Castillo MD at 04/10/2018 2:23 PM ED Course/Re-evaluation ED Course Patient was admitted to an exam room, history and physical were obtained. Differential diagnoses were considered. On examination patient had significant weakness to the right leg, right hand and right arm. Patient was unable to lift his arm or his leg off the bed. 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 Patient is unable to dorsiflex or plantarflex his right foot. Due to the length of time that the patient had the symptoms I did want to go ahead and do an MRI. We were unable to get the MRI, as the patient has a history of a aortic stent which were unable to verify if he was able to be taken into an MRI. The patient had a CBC, CMP, troponin, EKG, chest x-ray, PT and PTT done. The lab results were unremarkable, CBC and CMP were negative, troponin was negative, EKG showed a normal sinus rhythm. Motor waiting to get the MRI, patient had been in the emergency room proximal 4 hours. Patient was becoming very irritated. He felt that there is nothing that had been done. I discussed that they were waiting to find out about the MRI. I expressed my frustration slight express there is. We also decided to go ahead and do a CTA of the head as well as the neck. The results of the CTA showed no acute findings in the brain, however there was some stenosis of the carotid arteries, 40% on the left and 50% on the right. Patient also had 70% stenosis in the left vertebral artery. I discussed the case with Dr. Mann, neurologist at [facility]. He did agree with my concerns for stroke and felt the patient should be transferred. He wanted me to talk with the hospitalist to get acceptance. I then spoke with Dr. Groves, hospitalist at [facility], who agreed to accept the patient for transfer. I discussed this with the patient who verbalized understanding and agreement with plan. Decision to Disposition Date: Apr 10, 2018 Decision to Disposition Time: 20:04 Depart Departure Latest Vital Signs Vital Signs Date Time Temp Pulse Resp B/P (MAP) Pulse Ox O2 Delivery O2 Flow Rate FiO2 04/10/18 20:35 76 90 04/10/18 20:30 146/74 (98) 04/10/18 18:00 Room Air 04/10/18 13:30 98.0 14 Impression: Primary Impression: Weakness Additional Impression: History of CVA (cerebrovascular accident) Condition: Condition Unchanged Disposition: XFER TO [facility] Referrals: WANG MOISE MD (PCP) Problem Qualifiers KAITLYNN SONG Apr 10, 2018 13:33
[2018-04-10] MEDS ORDERED: NS(*) 0.9% 1000 ML BAG 1,000 ML IV ONE (13:45)
[2018-04-10 13:53] LABS: PLATELET COUNT, AUTOMATED 220 K/uL (150-450)
--- NOTE | 2018-04-10 14:16 | EKG ---
FACILITY: [facility] PATIENT NAME: KAREN SOLORIO : [id number] MR: [id number] V: [id number] EXAM DATE: ORDERING PHYSICIAN: KAITLYNN SONG TECHNOLOGIST: COCO Meier Reason : NEURO Blood Pressure : / mmHG Vent. Rate : 094 BPM Atrial Rate : 094 BPM P-R Int : 208 ms QRS Dur : 090 ms QT Int : 366 ms P-R-T Axes : 041 096 067 degrees QTc Int : 457 ms Sinus rhythm with 1st degree AV block Rightward axis Septal infarct , age undetermined Abnormal ECG When compared with ECG of 17-OCT-2017 09:39, No significant change was found Confirmed by Moisés Dinh ([id number]) on 04/10/2018 5:29:22 PM Referred By: RANJANA Confirmed By:Moisés Justin
--- NOTE | 2018-04-10 14:28 | RADIOLOGY IMAGING REPORT ---
FACILITY: [facility] PATIENT NAME: Toribio Angel : 1950 MR: [id number] V: [id number] EXAM DATE: ORDERING PHYSICIAN: KAITLYNN SONG TECHNOLOGIST: Location: [facility] [place] Patient: Toribio Angel : 1950 Visit/Account:[id number] Date of Sevice: 04/10/2018 Exam type: CHEST SINGLE AP History: weakness right arm and leg Comparison: October 17, 2017 Findings: There are sternotomy sutures has not. The cardiac silhouette does not appear enlarged. The lungs ar e free of acute effusions infiltrates or edema. There is no evidence of a pneumothorax or pneumomedi astinum.. IMPRESSION: 1. No acute cardiopulmonary process seen Report Dictated By: Annel Castillo MD at 04/10/2018 2:22 PM Report E-Signed By: Annel Castillo MD at 04/10/2018 2:23 PM WSN:[email or web address]
--- NOTE | 2018-04-10 14:48 | RADIOLOGY IMAGING REPORT ---
FACILITY: [facility] PATIENT NAME: Toribio Angel : 1950 MR: [id number] V: [id number] EXAM DATE: ORDERING PHYSICIAN: KAITLYNN SONG TECHNOLOGIST: Location: [facility] Patient: Toribio Angel : 1950 Visit/Account:[id number] Date of Sevice: 04/10/2018 ORBITS single view HISTORY: Pre-MRI evaluate for foreign body. COMPARISON: None FINDINGS: No metallic foreign body overlying the orbits. IMPRESSION: 1. No metallic foreign body overlying the orbits. Report Dictated By: Jean-Paul Colon MD at 04/10/2018 2:42 PM Report E-Signed By: Jean-Paul Colon MD at 04/10/2018 2:43 PM WSN:[id number]
[2018-04-10] MEDS ORDERED: IOPAMIDOL 76% 75 ML INFUS BTL 75 ML ONE (17:49)
[2018-04-10] MEDS ORDERED: NS(*) 0.9% 50 ML BAG 50 ML ONE (17:49)
[2018-04-10 18:39] LABS: INR 0.96
--- NOTE | 2018-04-10 19:18 | RADIOLOGY IMAGING REPORT ---
[place] [facility] [place] Toribio Angel : 1950 MR: [id number] V: [id number] EXAM DATE: ORDERING PHYSICIAN: KAITLYNN SONG TECHNOLOGIST: Location: Patient: Toribio Angel : 1950 Visit/Account:[id number] Date of Sevice: 04/10/2018 EXAMINATION: CTA of the Neck with IV contrast CTA of the Head with IV contrast HISTORY: Weakness for 3 days and numbness. TECHNIQUE: Axial noncontrast images are taken from the skull base through the vertex. Sagittal and coronal reformatted images are also submitted. Overlapping thin sections were obtained during a hanane us of IV contrast from the aortic arch through the vertex. Reconstruction of the source data set incl udes multiplanar 2D in the sagittal and coronal planes, and 3D coronal thin slab MIP series. Represen tative images have been stored on PACS. Stenosis of the internal carotid arteries are calculated usi ng NASCET criteria. One of the following dose optimization techniques was utilized in the performance of this exam: Autom ated exposure control; adjustment of the mA and/or kV according to the patient's size; or use of an i terative reconstruction technique. Specific details can be referenced in the facility's radiology C T exam operational policy. CONTRAST: 75 mL of IV Isovue-370. COMPARISON: CT the head on 10/17/2017. h CTA: Aortic arch and great vessels: Minimal atherosclerotic calcific changes without focal abnormality. Right CCA / ICA: The right bulb area does show focal atherosclerotic calcific changes with approxim ately 50 percent stenosis. There is mild atherosclerotic us of changes seen in the cavernous sinus re gion of the internal carotid artery without significant stenosis. No other areas of stenosis. No aneu rysm, dissection or filling defect. Left CCA / ICA: The left bulb area does show focal atherosclerotic calcific changes with approximat deangelo 40 percent stenosis. There is mild atherosclerotic us of changes seen in the cavernous sinus manda on of the internal carotid artery without significant stenosis. No other areas of stenosis. No aneury sm, dissection or filling defect. Vertebro-basilar: No aneurysm, dissection, filling defect. The distal left vertebral artery at the skull base does show focal atherosclerotic calcific changes with approximately 70 percent stenosis. N o other areas of stenosis in either vertebral artery. [place] of [place]: No aneurysm, dissection, filling defect or stenosis. AGUILAR circulation: Negative. MCA circulation: Negative. EMERGENCY MEDICAL SERVICE COORDINATOR circulation: Negative. Additional non-angiographic findings: Brain shows no enhancing lesions or areas of abnormal enhancement. No abnormal density is identified. No indication of intracranial bleed, extra-axial fluid collection or hydrocephalus. Dominguez/white matte r differentiation appears normal. Soft tissues the neck are unremarkable. Lung apices are clear. Bony structures show degenerative changes spine without acute abnormality or discrete lesion. IMPRESSION: 1. The brain shows no indication of acute abnormality. 2. CTA of the head and neck is fairly unremarkable. Both bulb areas of the carotid arteries do show a reas of stenosis due to focal atherosclerotic calcific changes, 50 percent on the right and 40 percen t on the left. The distal left vertebral artery also shows focal atherosclerotic calcific changes cau sing stenosis approximately 70 percent. Report Dictated By: Renard Mckeon at 04/10/2018 6:45 PM Report E-Signed By: Renard Mckeon at 04/10/2018 7:15 PM WSN:[id number]
--- NOTE | 2018-04-10 19:19 | RADIOLOGY IMAGING REPORT ---
FACILITY: [facility] [place] PATIENT NAME: Toribio Angel : 1950 MR: [id number] V: [id number] EXAM DATE: ORDERING PHYSICIAN: KAITLYNN SONG TECHNOLOGIST: Location: [facility] Patient: Toribio Angel : 1950 Visit/Account:[id number] Date of Sevice: 04/10/2018 EXAMINATION: CTA of the Neck with IV contrast CTA of the Head with IV contrast HISTORY: Weakness for 3 days and numbness. TECHNIQUE: Axial noncontrast images are taken from the skull base through the vertex. Sagittal and coronal reformatted images are also submitted. Overlapping thin sections were obtained during a hanane us of IV contrast from the aortic arch through the vertex. Reconstruction of the source data set incl udes multiplanar 2D in the sagittal and coronal planes, and 3D coronal thin slab MIP series. Represen tative images have been stored on PACS. Stenosis of the internal carotid arteries are calculated usi ng NASCET criteria. One of the following dose optimization techniques was utilized in the performance of this exam: Autom ated exposure control; adjustment of the mA and/or kV according to the patient's size; or use of an i terative reconstruction technique. Specific details can be referenced in the facility's radiology C T exam operational policy. CONTRAST: 75 mL of IV Isovue-370. COMPARISON: CT the head on 10/17/2017. h CTA: Aortic arch and great vessels: Minimal atherosclerotic calcific changes without focal abnormality. Right CCA / ICA: The right bulb area does show focal atherosclerotic calcific changes with approxim ately 50 percent stenosis. There is mild atherosclerotic us of changes seen in the cavernous sinus re gion of the internal carotid artery without significant stenosis. No other areas of stenosis. No aneu rysm, dissection or filling defect. Left CCA / ICA: The left bulb area does show focal atherosclerotic calcific changes with approximat deangelo 40 percent stenosis. There is mild atherosclerotic us of changes seen in the cavernous sinus manda on of the internal carotid artery without significant stenosis. No other areas of stenosis. No aneury sm, dissection or filling defect. Vertebro-basilar: No aneurysm, dissection, filling defect. The distal left vertebral artery at the skull base does show focal atherosclerotic calcific changes with approximately 70 percent stenosis. N o other areas of stenosis in either vertebral artery. [place] of [place]: No aneurysm, dissection, filling defect or stenosis. AGUILAR circulation: Negative. MCA circulation: Negative. CAMPAIGN ANALYST circulation: Negative. Additional non-angiographic findings: Brain shows no enhancing lesions or areas of abnormal enhancement. No abnormal density is identified. No indication of intracranial bleed, extra-axial fluid collection or hydrocephalus. Dominguez/white matte r differentiation appears normal. Soft tissues the neck are unremarkable. Lung apices are clear. Bony structures show degenerative changes spine without acute abnormality or discrete lesion. IMPRESSION: 1. The brain shows no indication of acute abnormality. 2. CTA of the head and neck is fairly unremarkable. Both bulb areas of the carotid arteries do show a reas of stenosis due to focal atherosclerotic calcific changes, 50 percent on the right and 40 percen t on the left. The distal left vertebral artery also shows focal atherosclerotic calcific changes cau sing stenosis approximately 70 percent. Report Dictated By: Renard Mckeon at 04/10/2018 6:45 PM Report E-Signed By: Renard Mckeon at 04/10/2018 7:15 PM WSN:[id number]
[2018-04-10 20:30] VITALS: BP 146/74
== END 2018-04-10 20:52 ==
LOC: ER 13:38
DX: R53.1 Weakness (principal); Z86.73 Personal history of transient ischemic attack (TIA), and cerebral infarction without residual deficits; I65.02 Occlusion and stenosis of left vertebral artery
CPT/HCPCS: 70200; 71045; 81001; 84484; 85025; 85610; 85730; 93005; 96360; 99285; J7030; J7050; Q9967; 70496; 70498; 82040; 82247; 82310; 82374; 82435; 82565; 82947; 84075; 84132; 84155; 84295; 84450; 84460; 84520

== ENCOUNTER → 2018-04-10 | Outpatient (CLI) | payer MEDICARE, OTHER ==
[2015-12-06 11:47] VITALS: BMI 24.1
[~2018-04-10] MED LIST changes: -IOPAMIDOL 76% 50 ML INFUS BTL 50 ML ONE; -IOPAMIDOL 76% 75 ML INFUS BTL 75 ML ONE; -NS 0.9% 25 ML BAG 50 ML ONE
== END ==
LOC: AMB 20:37
PROVIDERS: ATTEND Nurse Practitioner
DX: G81.91 Hemiplegia, unspecified affecting right dominant side (principal)
CPT/HCPCS: A0425; A0428

== ENCOUNTER → 2018-04-10 | Outpatient (CLI) | payer MEDICARE, OTHER ==
[2015-12-06 11:47] VITALS: BMI 24.1
== END ==
LOC: AMB 12:57
PROVIDERS: ATTEND Nurse Practitioner
DX: G81.91 Hemiplegia, unspecified affecting right dominant side (principal); I44.0 Atrioventricular block, first degree
CPT/HCPCS: A0425; A0427

== ENCOUNTER → 2018-05-12 | Outpatient (REF) | payer MEDICARE, OTHER ==
[2015-12-06 11:47] VITALS: BMI 24.1
[~2018-05-12] MED LIST changes: +ATOR20TA22 PO; -LOSA100T67 PO; +LOSA100T69 PO; -LOSA50TA72 PO; +LOSA50TA74 PO; -METF-421 PO; +METF-452 PO
[2018-05-12 09:51] LABS: LDL CHOLESTEROL 4 mg/dl
== END ==
LOC: ZZSENDIN 09:17
PROVIDERS: ATTEND Internal Medicine
DX: I63.19 Cerebral infarction due to embolism of other precerebral artery (principal); I10 Essential (primary) hypertension; E11.42 Type 2 diabetes mellitus with diabetic polyneuropathy; Z86.79 Personal history of other diseases of the circulatory system
CPT/HCPCS: 81001; 82040; 82043; 82247; 82310; 82374; 82435; 82465; 82565; 82947; 83036; 83718; 84075; 84132; 84155; 84295; 84443; 84450; 84460; 84478; 84520; 85027

== ENCOUNTER → 2018-06-27 | Outpatient (CLI) | payer MEDICARE, OTHER ==
[2015-12-06 11:47] VITALS: BMI 24.1
[~2018-06-27] MED LIST changes: +FLU180SY11 IM; +LOSA25TA52 PO; +NEED-653 MC; +NEED-653 TOP; +PNEU0.5D3 IM
--- NOTE | 2018-06-27 13:32 | RADIOLOGY IMAGING REPORT ---
FACILITY: [facility] [place] PATIENT NAME: Toribio Angel : 1950 MR: [id number] V: [id number] EXAM DATE: ORDERING PHYSICIAN: JOSE RAUL KAYE TECHNOLOGIST: Location: [facility] [place] Patient: Toribio Angel : 1950 Visit/Account:[id number] Date of Sevice: 06/27/2018 KIDNEYS COMPARISON: CT urogram February 01, 2018 HISTORY: : Renal lesion, kidney stone, incompletely bladder emptying. Patient had focal decreased e nhancement of the right kidney lower pole which was indeterminate on prior CT TECHNIQUE: Ultrasound of the kidneys and bladder was performed. Color Doppler images of the aorta a nd IVC were also obtained. FINDINGS: RIGHT KIDNEY: Normal size, 11.9 cm bipolar length. Normal echotexture. Normal variant renal corti bob lobulation is noted. No hydronephrosis, calculus or perinephric fluid. No no visible mass by ult rasound. No ultrasound correlate for the finding on previous CT. Normal right kidney intrarenal res istive index of 0.62. LEFT KIDNEY: Normal size, 12.8 cm bipolar length. Normal echotexture. Normal variant renal cortic al lobulation is noted. No hydronephrosis, calculus or perinephric fluid. No appreciable masses. No rmal left kidney intrarenal resistive index of 0.65. BLADDER: Unremarkable. No visible wall thickening, mass, or calculus. Bilateral ureteral jets were documented. Estimated bladder volume 227 mL. The patient could not void and therefore a post void residual could not be obtained. ABDOMINAL AORTA AND IVC: Patent by Doppler ultrasound. IMPRESSION: 1. Unremarkable ultrasound appearance of the kidneys. There is no ultrasound correlate for the righ t kidney lower pole finding on prior CT. Because neoplasm was in the differential I would recommend continued renal CT or MRI follow-up with contrast. 2. Small right kidney upper pole cysts noted on the previous study are not visible on this study. 3. Normal ultrasound appearance of the bladder. The patient could not void. Report Dictated By: Donte Shannon at 06/27/2018 1:18 PM Report E-Signed By: Donte Shannon at 06/27/2018 1:27 PM WSN:[email or web address]
== END ==
LOC: US 06-20 01:39
PROVIDERS: ATTEND Urology
DX: N28.89 Other specified disorders of kidney and ureter (principal); R33.8 Other retention of urine; N20.0 Calculus of kidney; Z87.448 Personal history of other diseases of urinary system
CPT/HCPCS: 76705

== ENCOUNTER 2018-09-11 10:53 | Emergency (ER) | payer MEDICARE, OTHER ==
[2015-12-06 11:47] VITALS: Wt 74.8 kg
[~2018-09-11 10:53] MED LIST changes: +LEV112 PO; -LOSA100T69 PO; +LOSA100T75 PO; -LOSA25TA52 PO; +LOSA25TA57 PO; -LOSA50TA74 PO; +LOSA50TA80 PO; +PREG100C44 PO; +ROSU5TAB8 PO
--- NOTE | 2018-09-11 10:59 | ER Report ---
History and Physical Time Seen By MD: 10:58 Hx. 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 weak x 2 days, thick speech this am. this has resolved, on asa plavix Allergies: Coded Allergies: No Known Drug Allergies (Verified , 04/10/18) Home Meds Active Scripts Rosuvastatin Calcium (CRESTOR) 5 Mg Tablet, 5 MG PO QDAY, #90 TAB 3 Refills Prov:WANG MOISE MD 08/17/18 Insulin Detemir (LEVEMIR) 100 Unit/Ml Injs, 12 UNIT SUBQ BID for 90 Days, #5 SYR 9 Refills Add 2 units every 3 days until fasting blood sugars 120 or less maximum dose is 40 units per 24 hours Prov:WANG MOISE MD 08/17/18 Levothyroxine Sodium (LEVOTHYROXINE SODIUM) 0.112 Mg Tab, 0.112 MG PO QDAY, #90 TAB 3 Refills Prov:WANG MOISE MD 08/17/18 Pregabalin (LYRICA) 100 Mg Capsule, 100 MG PO BID, #180 CAPSULE 3 Refills Prov:WANG MOISE MD 08/17/18 [place], Insulin Disposable (Bd Ultra-Fine Pen Needle) 1 Each Dis.needle, BOX MC QDAY, #1 3 Refills use to administer insulin twice daily. Prov:WANG MOISE MD 06/19/18 Clopidogrel Bisulfate (CLOPIDOGREL) 75 Mg Tablet, 1 TAB PO QDAY, #90 TAB 3 Refills Prov:WANG MOISE MD 05/18/18 Losartan Potassium (LOSARTAN POTASSIUM) 25 Mg Tablet, 25 MG PO QDAY, #90 TAB 2 Refills Prov:WANG MOISE MD 05/18/18 Metformin Hcl (METFORMIN HCL) 1,000 Mg Tablet, 1 TAB PO BID, #180 TAB 3 Refills Prov:JORGITO LIZ MD 07/28/17 Reported Medications Ranitidine Hcl (ZANTAC) 150 Mg Tablet, 150 MG PO BID, TAB 10/31/17 Aspirin (ASPIRIN) 325 Mg Tablet, 325 MG PO QDAY, TAB 02/09/17 Hx Smoking: Yes Smoking Status: Current: Every Day Smoker Hx Substance Use Disorder: No Hx Alcohol Use: No Family History of: HTN Constitutional Vital Sign - Last 24 Hours 09/11/18 09/11/18 09/11/18 09/11/18 10:53 11:01 11:03 11:08 Pulse ??? 92 92 Resp 20 B/P (MAP) 130/84 (99) 130/84 Pulse Ox 93 92 O2 Delivery Room Air 09/11/18 09/11/18 09/11/18 09/11/18 11:23 11:30 11:53 11:58 Pulse 89 84 83 Resp 35 27 B/P (MAP) 89/61 (70) Pulse Ox 90 93 93 09/11/18 09/11/18 09/11/18 09/11/18 12:00 12:28 12:29 12:30 Temp 97.4 Pulse 80 B/P (MAP) 113/69 (84) 108/73 (85) Pulse Ox 92 09/11/18 09/11/18 09/11/18 09/11/18 12:58 13:00 13:28 13:30 Pulse 79 81 Resp 35 7 B/P (MAP) 88/64 (72) 125/76 (92) Pulse Ox 92 94 09/11/18 09/11/18 09/11/18 13:30 14:00 14:30 Pulse 77 77 Resp 26 22 16 B/P (MAP) 125/76 (92) 124/95 (105) 146/84 (104) Pulse Ox 89 96 89 Physical Exam 67-year-old male alert oriented no acute distress GCS of 15 NIH shows deficits with his long-term weakness in his right side he has had CVAs 3 in the past has normocephalic/atraumatic pupils are equal round react to light EOM intact tympanic membranes unable to visualize cerumen impaction bilaterally throat no erythema mucous membranes are dry no carotid bruit heart rates regular no murmurs rubs or gallops lungs auscultation abdomen soft moves all extremities no peripheral edema Medical Decision Making Data Points Result Diagram: 09/11/18 1105 09/11/18 1105 Laboratory Hematology Test 09/11/18 11:05 09/11/18 13:36 Red Blood Count 6.03 M/uL (4.00-5.60) Mean Corpuscular Volume 90.9 fL (80.0-96.0) Mean Corpuscular Hemoglobin 28.6 pg (26.0-33.0) Mean Corpuscular Hemoglobin Concent 31.5 g/dL (32.0-36.0) Red Cell Distribution Width 15.7 % (11.5-14.5) Mean Platelet Volume 9.6 fL (7.2-11.1) Neutrophils (%) (Auto) 66.3 % (39.4-72.5) Lymphocytes (%) (Auto) 21.9 % (17.6-49.6) Monocytes (%) (Auto) 9.4 % (4.1-12.4) Eosinophils (%) (Auto) 1.6 % (0.4-6.7) Basophils (%) (Auto) 0.8 % (0.3-1.4) Nucleated RBC Relative Count (auto) 0.1 /100WBC Neutrophils # (Auto) 6.9 K/uL (2.0-7.4) Lymphocytes # (Auto) 2.3 K/uL (1.3-3.6) Monocytes # (Auto) 1.0 K/uL (0.3-1.0) Eosinophils # (Auto) 0.2 K/uL (0.0-0.5) Basophils # (Auto) 0.1 K/uL (0.0-0.1) Nucleated RBC Absolute Count (auto) 0.01 K/uL Sodium Level 142 mmol/L (137-145) Potassium Level 3.8 mmol/L (3.5-5.0) Chloride Level 101 mmol/L (98-107) Carbon Dioxide Level 20 mmol/L (22-30) Blood Urea Nitrogen 15 mg/dl (9-21) Creatinine 1.20 mg/dl (0.66-1.25) Glomerular Filtration Rate Calc > 60.0 Random Glucose 272 mg/dl (75-110) Calcium Level 10.3 mg/dl (8.4-10.2) Magnesium Level 1.3 mg/dl (1.7-2.2) Total Bilirubin 0.8 mg/dl (0.2-1.3) Aspartate Amino Transf (AST/SGOT) 24 U/L (0-35) Alanine Aminotransferase (ALT/SGPT) 14 U/L (0-56) Alkaline Phosphatase 93 U/L (0-126) Troponin I < 0.012 ng/ml Total Protein 8.1 g/dl (6.3-8.2) Albumin 4.9 g/dl (3.5-5.0) Urine Color Yellow Urine Clarity Clear Urine pH 5.0 pH (4.8-9.5) Urine Specific Wesley 1.020 Urine Protein 100 mg/dL (NEGATIVE) Urine Glucose (UA) 150 mg/dL (NEGATIVE) Urine Ketones Trace mg/dL (NEGATIVE) Urine Blood Negative (NEGATIVE) Urine Nitrite Negative (NEGATIVE) Urine Bilirubin Negative (NEGATIVE) Urine Urobilinogen 2.0 mg/dL (0.2-1.9) Urine Leukocyte Esterase Negative (NEGATIVE) Urine RBC None /HPF (0-2/HPF) Urine WBC 2 /HPF (0-5/HPF) Urine Squamous Epithelial Cells None /LPF (</=FEW) Urine Bacteria Few /HPF (NONE-FEW) Urine Mucus None /HPF (NONE-FEW) Chemistry Test 09/11/18 11:05 09/11/18 13:36 White Blood Count 10.4 k/uL (4.5-11.0) Red Blood Count 6.03 M/uL (4.00-5.60) Hemoglobin 17.2 g/dL (14.0-18.0) Hematocrit 54.8 % (42.0-52.0) Mean Corpuscular Volume 90.9 fL (80.0-96.0) Mean Corpuscular Hemoglobin 28.6 pg (26.0-33.0) Mean Corpuscular Hemoglobin Concent 31.5 g/dL (32.0-36.0) Red Cell Distribution Width 15.7 % (11.5-14.5) Platelet Count 208 K/uL (150-450) Mean Platelet Volume 9.6 fL (7.2-11.1) Neutrophils (%) (Auto) 66.3 % (39.4-72.5) Lymphocytes (%) (Auto) 21.9 % (17.6-49.6) Monocytes (%) (Auto) 9.4 % (4.1-12.4) Eosinophils (%) (Auto) 1.6 % (0.4-6.7) Basophils (%) (Auto) 0.8 % (0.3-1.4) Nucleated RBC Relative Count (auto) 0.1 /100WBC Neutrophils # (Auto) 6.9 K/uL (2.0-7.4) Lymphocytes # (Auto) 2.3 K/uL (1.3-3.6) Monocytes # (Auto) 1.0 K/uL (0.3-1.0) Eosinophils # (Auto) 0.2 K/uL (0.0-0.5) Basophils # (Auto) 0.1 K/uL (0.0-0.1) Nucleated RBC Absolute Count (auto) 0.01 K/uL Glomerular Filtration Rate Calc > 60.0 Calcium Level 10.3 mg/dl (8.4-10.2) Magnesium Level 1.3 mg/dl (1.7-2.2) Total Bilirubin 0.8 mg/dl (0.2-1.3) Aspartate Amino Transf (AST/SGOT) 24 U/L (0-35) Alanine Aminotransferase (ALT/SGPT) 14 U/L (0-56) Alkaline Phosphatase 93 U/L (0-126) Troponin I < 0.012 ng/ml Total Protein 8.1 g/dl (6.3-8.2) Albumin 4.9 g/dl (3.5-5.0) Urine Color Yellow Urine Clarity Clear Urine pH 5.0 pH (4.8-9.5) Urine Specific Wesley 1.020 Urine Protein 100 mg/dL (NEGATIVE) Urine Glucose (UA) 150 mg/dL (NEGATIVE) Urine Ketones Trace mg/dL (NEGATIVE) Urine Blood Negative (NEGATIVE) Urine Nitrite Negative (NEGATIVE) Urine Bilirubin Negative (NEGATIVE) Urine Urobilinogen 2.0 mg/dL (0.2-1.9) Urine Leukocyte Esterase Negative (NEGATIVE) Urine RBC None /HPF (0-2/HPF) Urine WBC 2 /HPF (0-5/HPF) Urine Squamous Epithelial Cells None /LPF (</=FEW) Urine Bacteria Few /HPF (NONE-FEW) Urine Mucus None /HPF (NONE-FEW) Urinalysis Test 09/11/18 13:36 Urine Color Yellow Urine Clarity Clear Urine pH 5.0 pH (4.8-9.5) Urine Specific Wesley 1.020 Urine Protein 100 mg/dL (NEGATIVE) Urine Glucose (UA) 150 mg/dL (NEGATIVE) Urine Ketones Trace mg/dL (NEGATIVE) Urine Blood Negative (NEGATIVE) Urine Nitrite Negative (NEGATIVE) Urine Bilirubin Negative (NEGATIVE) Urine Urobilinogen 2.0 mg/dL (0.2-1.9) Urine Leukocyte Esterase Negative (NEGATIVE) Urine RBC None /HPF (0-2/HPF) Urine WBC 2 /HPF (0-5/HPF) Urine Squamous Epithelial Cells None /LPF (</=FEW) Urine Bacteria Few /HPF (NONE-FEW) Urine Mucus None /HPF (NONE-FEW) EKG/Imaging Imaging FACILITY: [facility] PATIENT NAME: Toribio Angel : 1950 MR: [id number] V: [id number] EXAM DATE: ORDERING PHYSICIAN: FLAKO GORDILLO TECHNOLOGIST: Location: [facility] [place] Patient: Toribio Angel : 1950 Visit/Account:[id number] Date of Sevice: 09/11/2018 Study: CT scan of the brain without intravenous contrast. Indication: Difficulty speaking Comparison study: April 10, 2018 Technique: Multiple axial images were obtained through the brain without the use of intravenous contrast. One of the following dose optimization techniques was utilized in the performance of this exam: Automated exposure control; adjustment of the mA and/or kV according to the patient's size; or use of an iterative rec onstruction technique. Specific details can be referenced in the facility's radiology CT exam operational policy. The examination demonstrates no evidence of acute intracranial hemorrhage. There is no evidence of extra-axial collection or hydrocephalus. There are areas of low density within the anterior limb of the internal capsule bilaterally. There are focal areas of low density within the thalami bilaterally as well as the eliel. These are all consistent with old small vessel infarcts. There is low density within the periventricular white matter consistent with chronic ischemic change. There is no evidence of disruption of the peripheral navarrete-white junction. The bony structures are unremarkable. IMPRESSION: No acute intracranial abnormality. There is no evidence of disrupt ion of the peripheral navarrete-white junction. There is no evidence of acute intracranial hemorrhage. Report Dictated By: Milan Fernandez at 09/11/2018 11:58 AM Report E-Signed By: Milan Fernandez at 09/11/2018 12:02 PM WSN:[id number] FACILITY: [facility] PATIENT NAME: Toribio Angel : 1950 MR: [id number] V: [id number] EXAM DATE: ORDERING PHYSICIAN: FLAKO GORDILLO TECHNOLOGIST: Location: [facility] [place] Patient: Toribio Angel : 1950 Visit/Account:[id number] Date of Sevice: 09/11/2018 Study: CT scan of the brain without intravenous contrast. Indication: Difficulty speaking Comparison study: April 10, 2018 Technique: Multiple axial images were obtained through the brain without the use of intravenous contrast. One of the following dose optimization techniques was utilized in the performance of this exam: Automated exposure control; adjustment of the mA and/or kV according to the patient's size; or use of an iterative reconstruction technique. Specific details can be referenced in the facility's radiology CT exam operational policy. The examination demonstrates no evidence of acute intracranial hemorrhage. There is no evidence of extra-axial collection or hydrocephalus. There are areas of low density within the anterior limb of the internal capsule bilaterally. There are focal areas of low density within the thalami bilaterally as well as the eliel. These are all consistent with old small vessel infarcts. There is low density within the periventricular white matter consistent with chronic ischemic change. There is no evidence of disruption of the peripheral navarrete-white junction. The bony structures are unremarkable. IMPRESSION: No acute intracranial abnormality. There is no evidence of disruption of the peripheral navarrete-white junction. There is no evidence of acute intracranial hemorrhage. Report Dictated By: Milan Fernandez at 09/11/2018 11:58 AM Report E-Signed By: Milan Fernandez at 09/11/2018 12:02 PM WSN:[email or web address] ED Course/Re-evaluation ED Course Patient's initial blood pressure in the emergency room with any was given a liter of IV fluids while in the emergency room current blood pressure 125/74 I'm symptoms are consistent with TIA he does have a history of CVAs in 1999 210 and 17 him today sore symptoms and 18 did have a CTA head and neck done at that time he has cleared currently is not having any additional symptoms blood pressure is normal did appear to be dehydrated shows a creatinine 1.220 I did talk to his is at his been drinking diet teas at home for hydration we'll have him follow up closely with his physician this was discussed with Dr. Mercado he feels that his workup can be done on outpatient basis patient was given instructions to return for any problems or concerns. His white count was 10.4 glucose 272 calcium 10.3 mag 1.3 this was replaced troponin is negative urine is negative except for glucose CT head was normal chest x-ray was normal they did receive a liter of IV fluids in the emergency room Re-evaluation Feels much better after IV fluids weakness has dissipated after magnesium replacement ready to go home will follow-up closely with his physician is also scheduled for PT for previous CVA Decision to Disposition Date: Sep 11, 2018 Decision to Disposition Time: 14:22 Depart Departure Latest Vital Signs Vital Signs Date Time Temp Pulse Resp B/P (MAP) Pulse Ox O2 Delivery O2 Flow Rate FiO2 09/11/18 14:30 16 146/84 (104) 89 09/11/18 14:00 77 09/11/18 12:29 97.4 09/11/18 11:03 Room Air Impression: Primary Impression: Hypotension Additional Impressions: TIA (transient ischemic attack) History of CVA (cerebrovascular accident) Condition: Improved Disposition: HOME OR SELF-CARE Referrals: WANG MOISE MD (PCP) 1 Day Patient Instructions: Hypotension (ED), Transient Ischemic Attack (ED) Additional Instructions: Take your blood pressure twice daily please include this for your physician return for any problems or concerns go home and rest today please drink plenty of water Problem Qualifiers FLAKO GORDILLO Sep 11, 2018 10:59
[2018-09-11] MEDS ORDERED: NS(*) 0.9% 1000 ML BAG 1,000 ML IV ONE (11:15)
--- NOTE | 2018-09-11 11:26 | EKG ---
FACILITY: [facility] [place] PATIENT NAME: KAREN SOLORIO : [id number] MR: [id number] V: [id number] EXAM DATE: ORDERING PHYSICIAN: FLAKO GORDILLO TECHNOLOGIST: RUPAL Meier Reason : WEAK Blood Pressure : / mmHG Vent. Rate : 090 BPM Atrial Rate : 090 BPM P-R Int : 202 ms QRS Dur : 096 ms QT Int : 396 ms P-R-T Axes : 023 078 070 degrees QTc Int : 484 ms Normal sinus rhythm Septal infarct (cited on or before 10-APR-2018) Abnormal ECG When compared with ECG of 10-APR-2018 13:51, No significant change was found Confirmed by MARIELA ARCHULETA ([id number]) on 09/11/2018 9:00:26 PM Referred By: RAND Confirmed By:MARIELA ARCHULETA
[2018-09-11 11:34] LABS: PLATELET COUNT, AUTOMATED 208 K/uL (150-450)
[2018-09-11] MEDS ORDERED: MAGNESIUM SUL* 2 GM/50 ML IVPB 50 ML IVPB ONE (11:55)
--- NOTE | 2018-09-11 12:08 | RADIOLOGY IMAGING REPORT ---
FACILITY: [facility] PATIENT NAME: Toribio Angel : 1950 MR: [id number] V: [id number] EXAM DATE: ORDERING PHYSICIAN: FLAKO GORDILLO TECHNOLOGIST: Location: [facility] Patient: Toribio Angel : 1950 Visit/Account:[id number] Date of Sevice: 09/11/2018 Study: CT scan of the brain without intravenous contrast. Indication: Difficulty speaking Comparison study: April 10, 2018 Technique: Multiple axial images were obtained through the brain without the use of intravenous contr ast. One of the following dose optimization techniques was utilized in the performance of this exam: Autom ated exposure control; adjustment of the mA and/or kV according to the patient's size; or use of an i terative reconstruction technique. Specific details can be referenced in the facility's radiology C T exam operational policy. The examination demonstrates no evidence of acute intracranial hemorrhage. There is no evidence of ex tra-axial collection or hydrocephalus. There are areas of low density within the anterior limb of the internal capsule bilaterally. There ar e focal areas of low density within the thalami bilaterally as well as the eliel. These are all consis tent with old small vessel infarcts. There is low density within the periventricular white matter consistent with chronic ischemic change. There is no evidence of disruption of the peripheral navarrete-white junction. The bony structures are unremarkable. IMPRESSION: No acute intracranial abnormality. There is no evidence of disruption of the peripheral g ray-white junction. There is no evidence of acute intracranial hemorrhage. Report Dictated By: Milan Fernandez at 09/11/2018 11:58 AM Report E-Signed By: Milan Fernandez at 09/11/2018 12:02 PM WSN:[email or web address]
--- NOTE | 2018-09-11 12:14 | RADIOLOGY IMAGING REPORT ---
FACILITY: [facility] [place] PATIENT NAME: Toribio Angel : 1950 MR: [id number] V: [id number] EXAM DATE: ORDERING PHYSICIAN: FLAKO GORDILLO TECHNOLOGIST: Location: [facility] Patient: Toribio Angel : 1950 Visit/Account:[id number] Date of Sevice: 09/11/2018 CHEST SINGLE AP HISTORY: Chest pain. COMPARISON: Chest x-ray the 2017. FINDINGS: Cardiomediastinal contours: The heart size is normal. Lungs and pleura: There is no finding of an infiltrate, lymphadenopathy or pleural effusion. Bones/soft tissues: There has been prior sternotomy. IMPRESSION: 1. Status post sternotomy. 2. The chest x-rays otherwise unremarkable. Report Dictated By: Nikita Cook MD at 09/11/2018 12:09 PM Report E-Signed By: Nikita Cook MD at 09/11/2018 12:10 PM WSN:[id number]
[2018-09-11 14:30] VITALS: BP 146/84
[2018-09-12] MEDS ORDERED: LOSA50TA80 PO (15:55)
[2018-09-12] MEDS ORDERED: MAGN400T36 PO (16:01)
== END 2018-09-11 14:40 | disposition home or self-care (01) ==
LOC: ER 11:04
DX: I95.9 Hypotension, unspecified (principal); G45.9 Transient cerebral ischemic attack, unspecified; Z86.73 Personal history of transient ischemic attack (TIA), and cerebral infarction without residual deficits
CPT/HCPCS: 70450; 71045; 81001; 83735; 84484; 85025; 93005; 96361; 96365; 96366; 99284; J3475; J7030; 82040; 82247; 82310; 82374; 82435; 82565; 82947; 84075; 84132; 84155; 84295; 84450; 84460; 84520

== ENCOUNTER 2018-09-15 10:30 | Outpatient (RCR) | payer MEDICARE, OTHER ==
[2015-12-06 11:47] VITALS: BMI 24.1
--- NOTE | 2018-07-18 15:24 | OT INITIAL EVALUATION ---
SUBJECTIVE: Patient is a 67 year old right hand dominate male referred to OP OT services for CVA that occurred on 04/08/2018. However, patient did not seek any medical services until 04/10/2018. Patient arrived and [facility] ED and was then transferred to [facility] for further care. Patient and reports that patient was admitted into [facility] for one week and then transitioned to acute rehab facility at [facility] in [place], [place] for two weeks of intense rehab. Patient was discharged home with recommendations for home health services. Patient was being seen only by PT services and was discharged from on 07/03/2018 with recommendations to continue rehab on an OP level. Patient reports that he is not walking in his home. He is only using a wheelchair and performing sit to stand pivot transfers. Patient's is assisting the patient with all self cares including bathing along with IADLS. Patient reports that he feels that he has gotten worse since leaving the ARU. OT encouraged patient to seek medical attention if he feels that he is not feeling right or exhibiting signs and symptoms of a stroke. Patient has been seen by OP OT services in the fall of 2017 s/p CVA. Patient wants to get function and strength back in his right arm. Previous Medical History: please refer to chart Occupation: [employer]-hasn't helped there in 6-8 months OBJECTIVE: ROM: AROM Right Left Shoulder Flexion 90* WFL Shoulder Extension 90* WFL Shoulder Abduction 90* WFL Elbow Flexion/Extension WFL WFL Wrist Flexion/Extension WFL WFL extra time needed for the patient to perform elbow and write flexion/extension Strength: MMT: Right Left Shoulder Flexion 2/5 5/5 Shoulder Extension 2/5 5/5 Shoulder Abduction 2/5 5/5 Elbow Flexion/Extension 2/5 5/5 Wrist Flexion/Extension 2/5 5/5 (5= normal, 4= good, 3= fair, 2= poor, 1= trace) [employer] Right = 19.6# (Age/gender normative= 91.1#) Left= 61.7# (Age/gender normative= 76.8#) Lateral Pinch Right = 5.7# (Age/gender normative= 23.4#) Left= 16.7# (Age/gender normative= 22#) 3 Point Pinch Right = 4# (Age/gender normative= 21.4#) Left= 14# (Age/gender normative= 21.2#) Sensation: continues to report of numbness and loss of sensation in both hands, this is not an acute symptom, patient reports that he has been experiencing numbness and tingling prior to this CVA Vision: no reports of changes in vision, patient reports of having new glasses Special Test: 9 Hole Peg Test (dexterity) Right= 25 seconds-patient was only able to car pick up driver one peg and he dropped this on the floor, unable to complete the test at this time (Age/gender normative= 20.7 seconds) Left= 46 seconds (Age/gender normative= 22.9 seconds) ASSESSMENT Patient demonstrates with a significant decrease in functional use of the right upper extremity including AROM and strength, compared to the end of OP OT services last fall. Patient is able to minimally perform AROM of the right hand, but this is difficult and requires extra time. Patient is not independently performing any of his ADLs or IADLs and his has taken on the role of being the primary caregiver to the patient. Historically patient has required verbal encouragement and this may be necessary at this time. Encouraged patient to move his right arm to help with function versus having the perspective that he is doing exercises. Patient will benefit from OP OT services to help increase independence with ADLs and gain functional use of the right UE. Short Term Goals 1.Patient will increase baggage porter head strength on the right hand by 5# in order to hold objects with the right hand. 2.Patient will demonstrate the ability to eddy and doff a shirt without assistance. 3.Patient will demonstrate the ability to eddy and doff his socks using adaptive equipment. 4.Patient will be able to complete the 9 Hole peg test on the right hand to demonstrate his ability to completed self cares. PLAN: Plan to see patient 2-3 times a week for 12 weeks to increase function of the right UE and improve self cares. Thank you for this referral. If you have any questions, concerns, or comments about this report or plan, please contact me at [phone]. Dahlia Torres MS, OTR/L Occupational Therapist RYDER
--- NOTE | 2018-07-19 14:54 | PT INITIAL EVALUATION ---
MEDICAL DIAGNOSIS: CVA TREATMENT DIAGNOSIS: same, altered gait, decreased balance, decreased strength DATE OF ONSET: 04/08/18 SUBJECTIVE: Toribio Angel presents to physical therapy with complaints of R UE and LE weakness as a result of a CVA that occurred approximately 04/08/18. However, patient did not seek any medical services until 04/10/2018. Patient arrived and [facility] ED and was then transferred to [facility] for further care. Patient and reports that patient was admitted into [facility] for one week and then transitioned to acute rehab facility at [facility] in [place], [place] for two weeks of intense rehab. Patient was discharged home with recommendations for home health services. Patient was being seen only by PT services and was discharged from on 07/03/2018 with recommendations to continue rehab on an OP level. Patient reports that he is not walking in his home. He is only using a wheelchair and performing sit to stand pivot transfers. 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 ROM: L hip flexion, abduction, adduction, extension, L knee flexion and extension, and L ankle DF and PF: WNL's with no pain. R hip flexion, extension, abduction, R knee flexion and extension: full AROM with gravity eliminated, R hip adduction, and R ankle PF and DF: WNL's. Strength: L hip flexion, abduction, adduction, extension, L knee flexion and extension, and L ankle DF and PF: 4/5 R hip flexion, extension, abduction: 1/5, R knee flexion: 1/5, R knee extension: 2+/5, R hip adduction: 2+/5, R ankle PF and DF: 1/5. Sensation: Decreased sensation (no protective sensation) from L2-S1 dermatomes bilaterally. Special Tests: Tinetti gait and balance: 03/18. Mobility: Pavithra X 1 with cane as AD Gait: With cane, he demonstrated the following gait deviations and donned brace to decrease R knee and AFO: decreased B step lengths, increased base of support, foot slap at initial contact, toe drag in mid-terminal swing due to severe weakness of R hip and knee musculature, decreased pelvic rotation, R knee hyperextension, but improved with R knee brace, forward trunk lean, and marked (severe) deviation to the R side. Balance: Normal base of support: 10 seconds, decreased base of support (feet together): 5 seconds, tandem R foot forward: unable, tandem L foot forward: unable. normal base of support with eyes closed: 1 second with severe sway. decreased base of support with eyes closed: unable to perform ASSESSMENT: Toribio Angel will benefit from skilled physical therapy addressing the listed impairments to improve function and QOL. Short Term Goals 6 weeks: Pt will improve R hip flexion, abduction, adduction, extension, R knee flexion and extension, R ankle DF and PF from baseline to 3+/5 or greater to improve function and QOL. 6 weeks: Pt will be able to ambulate with increased R hip flexion and R knee flexion and decreased R knee hyperextension with R AFO donned to improve gait mechanics and decrease falls. 6 weeks: Pt will improve Tinetti Gait and Balance from baseline to or greater to decrease fall risk and improve QOL. 12 weeks: Pt will improve R hip flexion, abduction, adduction, extension, R knee flexion and extension, R ankle DF and PF from baseline to 4/5 or greater to improve function and QOL. 12 weeks: Pt will improve Tinetti Gait and Balance from baseline to or greater to decrease fall risk and improve QOL. Patient's Goals improve transfers, bed mobility, ambulation, improve strength of R leg PLAN: Patient to be seen for Manual Therapy/STM/MET Strengthening/condition Ice/Heat Range of Motion Spinal Stabilization Work Hardening/Cond Stretching Neuromuscular Re-ed Closed Chain Program Electrical Stim Posture/Body mechanics Gait Trg/Balance Trg Home Exercise Program Therapeutic Activities 2x/Week for 12 Weeks If you have any questions, comments, or concerns about this report or plan, please contact me at . Thank you, Suraj Fontenot, PT, DPT MTDD
--- NOTE | 2018-08-18 13:35 | PT PLAN OF CARE ---
Physician: Otto Jacobsen MD Patient is being seen: 2-3x/week Therapist: Suraj Fontenot, PT, DPT Medical Diagnosis: CVA Treatment Diagnosis: same, altered gait, decreased balance, decreased strength Date of Onset: 04/08/18 Date of Initial Evaluation: 07/18/18 Date patient was last seen: 08/18/18 Number of treatments: 12 Number of cancellations/No shows: 0 INTERVENTIONS: Patient to be seen for Manual Therapy/STM/MET Strengthening/condition Ice/Heat Range of Motion Spinal Stabilization Work Hardening/Cond Stretching Neuromuscular Re-ed Closed Chain Program Electrical Stim Posture/Body mechanics Gait Trg/Balance Trg Home Exercise Program Therapeutic Activities GOALS: 6 weeks: Pt will improve R hip flexion, abduction, adduction, extension, R knee flexion and extension, R ankle DF and PF from baseline to 3+/5 or greater to improve function and QOL. 6 weeks: Pt will be able to ambulate with increased R hip flexion and R knee flexion and decreased R knee hyperextension with R AFO donned to improve gait mechanics and decrease falls. 6 weeks: Pt will improve Tinetti Gait and Balance from baseline to or greater to decrease fall risk and improve QOL. 12 weeks: Pt will improve R hip flexion, abduction, adduction, extension, R knee flexion and extension, R ankle DF and PF from baseline to 4/5 or greater to improve function and QOL. 12 weeks: Pt will improve Tinetti Gait and Balance from baseline to or greater to decrease fall risk and improve QOL. PATIENT'S GOAL: improve transfers, bed mobility, ambulation, improve strength of R leg Status of Patient's Goals: Progressing Patient Compliance: Good Prognosis: Reasons for continuing therapy: This is a progress note for Toribio Angel. He reports that he feels like he is starting to do more independently. He reports that he can perform his bed mobility, transfers, and some walking independently. He reports that he continues to favor his R side but is starting to pay more attention to his R UE and LE. He denies any current falls. He demonstrated the following improvements since the initial examination: increased B step lengths (have become more equal), increased velocity, decreased R knee hyperextension, becoming more equal on the R LE and L LE while performing sit to/from standing transfers, increased R LE strength, increased endurance with ambulation, and abolished R knee buckling when performing single leg stance when stepping or moving his L LE to a curb or step. He continues to be impulsive when he becomes fatigued with ambulation and transfers, which requires increased verbal cueing to slow down and be strategic about safely moving. We will continue to improve gait mechanics, B LE strength, endurance, increased R side weightbearing, increased balance strategies in all conditions, and continue to return closer to prior level of function. OBJECTIVE: Posture: He demonstrates increased B rounded shoulders, forward head position, increased thoracic kyphosis, and decreased lumbar lordosis. ROM: L hip flexion, abduction, adduction, extension, L knee flexion and extension, and L ankle DF and PF: WNL's with no pain. R hip flexion, extension, abduction, R knee flexion and extension: full AROM with gravity eliminated, R hip adduction, and R ankle PF and DF: WNL's. Strength: L hip flexion, abduction, adduction, extension, L knee flexion and extension, and L ankle DF and PF: 4/5 R hip flexion, extension, abduction: 2-/5, R knee flexion: 2-/5, R knee extension: 2+/5, R hip adduction: 2+/5, R ankle PF and DF: 1/5. Sensation: Decreased sensation (no protective sensation) from L2-S1 dermatomes bilaterally. Special Tests: Tinetti gait and balance: . Mobility: Pavithra X 1 with cane as AD Gait: With FWW, he demonstrated the following gait deviations and donned brace to decrease R knee and AFO: equal B step lengths, increased base of support, normal foot contact and initial contact, toe drag in mid-terminal swing due to severe weakness of R hip and knee musculature, decreased pelvic rotation, R knee hyperextension (continues to happen but decreased from initial examination), but improved with R knee brace, forward trunk lean, and marked (moderate) deviation to the R side. Balance: Normal base of support: 20 seconds, decreased base of support (feet together): 10 seconds, tandem R foot forward: unable, tandem L foot forward: unable. normal base of support with eyes closed: 3 seconds with severe sway. decreased base of support with eyes closed: unable to perform If you have any questions, please contact me at [phone]. Thank you, Suraj Fontenot, PT, DPT MTDD
[~2018-09-15 10:30] MED LIST changes: +MAGN400T36 PO
--- NOTE | 2018-09-18 16:29 | PT PLAN OF CARE ---
Physician: Otto Jacobsen MD Patient is being seen: 2-3x/week Therapist: Suraj Fontenot, PT, DPT Medical Diagnosis: CVA Treatment Diagnosis: same, altered gait, decreased balance, decreased strength Date of Onset: 04/08/18 Date of Initial Evaluation: 07/18/18 Date patient was last seen: 09/15/18 Number of treatments: 20 Number of cancellations/No shows: 3 INTERVENTIONS: Patient to be seen for Manual Therapy/STM/MET Strengthening/condition Ice/Heat Range of Motion Spinal Stabilization Work Hardening/Cond Stretching Neuromuscular Re-ed Closed Chain Program Electrical Stim Posture/Body mechanics Gait Trg/Balance Trg Home Exercise Program Therapeutic Activities GOALS: 6 weeks: Pt will improve R hip flexion, abduction, adduction, extension, R knee flexion and extension, R ankle DF and PF from baseline to 3+/5 or greater to improve function and QOL. 6 weeks: Pt will be able to ambulate with increased R hip flexion and R knee flexion and decreased R knee hyperextension with R AFO donned to improve gait mechanics and decrease falls. 6 weeks: Pt will improve Tinetti Gait and Balance from baseline to or greater to decrease fall risk and improve QOL. 12 weeks: Pt will improve R hip flexion, abduction, adduction, extension, R knee flexion and extension, R ankle DF and PF from baseline to 4/5 or greater to improve function and QOL. 12 weeks: Pt will improve Tinetti Gait and Balance from baseline to or greater to decrease fall risk and improve QOL. PATIENT'S GOAL: improve transfers, bed mobility, ambulation, improve strength of R leg Status of Patient's Goals: Progressing Patient Compliance: Good Prognosis: Reasons for continuing therapy: This is a discharge note for Toribio Angel. He was admitted to the hospital today, as a result, he will be discharged from PT at this time. OBJECTIVE: Posture: He demonstrates increased B rounded shoulders, forward head position, increased thoracic kyphosis, and decreased lumbar lordosis. ROM: L hip flexion, abduction, adduction, extension, L knee flexion and extension, and L ankle DF and PF: WNL's with no pain. R hip flexion, extension, abduction, R knee flexion and extension: full AROM with gravity eliminated, R hip adduction, and R ankle PF and DF: WNL's. Strength: L hip flexion, abduction, adduction, extension, L knee flexion and extension, and L ankle DF and PF: 4/5 R hip flexion, extension, abduction: 2-/5, R knee flexion: 2-/5, R knee extension: 2+/5, R hip adduction: 2+/5, R ankle PF and DF: 1/5. Sensation: Decreased sensation (no protective sensation) from L2-S1 dermatomes bilaterally. Special Tests: Tinetti gait and balance: . Mobility: Pavithra X 1 with cane as AD Gait: With FWW, he demonstrated the following gait deviations and donned brace to decrease R knee and AFO: equal B step lengths, increased base of support, normal foot contact and initial contact, toe drag in mid-terminal swing due to severe weakness of R hip and knee musculature, decreased pelvic rotation, R knee hyperextension (continues to happen but decreased from initial examination), but improved with R knee brace, forward trunk lean, and marked (moderate) deviation to the R side. Balance: Normal base of support: 20 seconds, decreased base of support (feet together): 10 seconds, tandem R foot forward: unable, tandem L foot forward: unable. normal base of support with eyes closed: 3 seconds with severe sway. decreased base of support with eyes closed: unable to perform If you have any questions, please contact me at [phone]. Thank you, Suraj Fontenot, PT, DPT [facility]
--- NOTE | 2018-09-18 16:49 | OT DISCHARGE SUMMARY ---
SUBJECTIVE: Patient is a 67 year old right hand dominate male referred to OP OT services for CVA that occurred on 04/08/2018. However, patient did not seek any medical services until 04/10/2018. Patient arrived and [facility] ED and was then transferred to [facility] for further care. Patient and reports that patient was admitted into [facility] for one week and then transitioned to acute rehab facility at [facility] in [place], [place] for two weeks of intense rehab. Patient was discharged home with recommendations for home health services. Patient was being seen only by PT services and was discharged from on 07/03/2018 with recommendations to continue rehab on an OP level. Patient reports that he is not walking in his home. He is only using a wheelchair and performing sit to stand pivot transfers. Patient's is assisting the patient with all self cares including bathing along with IADLS. Patient reports that he feels that he has gotten worse since leaving the ARU. OT encouraged patient to seek medical attention if he feels that he is not feeling right or exhibiting signs and symptoms of a stroke. Patient has been seen by OP OT services in the fall of 2017 s/p CVA. Patient wants to get function and strength back in his right arm. Patient was admitted into [facility] on 09/18/2018 for pneumonia. Previous Medical History: please refer to chart Occupation: [email or web address]-hasn't helped there in 6-8 months OBJECTIVE: No change in objective data ROM: AROM Right Left Shoulder Flexion 90* WFL Shoulder Extension 90* WFL Shoulder Abduction 90* WFL Elbow Flexion/Extension WFL WFL Wrist Flexion/Extension WFL WFL extra time needed for the patient to perform elbow and write flexion/extension Strength: MMT: Right Left Shoulder Flexion 2/5 5/5 Shoulder Extension 2/5 5/5 Shoulder Abduction 2/5 5/5 Elbow Flexion/Extension 2/5 5/5 Wrist Flexion/Extension 2/5 5/5 (5= normal, 4= good, 3= fair, 2= poor, 1= trace) Brush Filler Hand Right = 19.6# (Age/gender normative= 91.1#) Left= 61.7# (Age/gender normative= 76.8#) Lateral Pinch Right = 5.7# (Age/gender normative= 23.4#) Left= 16.7# (Age/gender normative= 22#) 3 Point Pinch Right = 4# (Age/gender normative= 21.4#) Left= 14# (Age/gender normative= 21.2#) Sensation: continues to report of numbness and loss of sensation in both hands, this is not an acute symptom, patient reports that he has been experiencing numbness and tingling prior to this CVA Vision: no reports of changes in vision, patient reports of having new glasses Special Test: 9 Hole Peg Test (dexterity) Right= 25 seconds-patient was only able to machine pecan picker one peg and he dropped this on the floor, unable to complete the test at this time (Age/gender normative= 20.7 seconds) Left= 46 seconds (Age/gender normative= 22.9 seconds) ASSESSMENT Patient was admitted into the hosptial on 09/18/2018. OT services with D/C patient at this time. Short Term Goals No change in goals 1.Patient will increase service order dispatcher chief strength on the right hand by 5# in order to hold objects with the right hand. 2.Patient will demonstrate the ability to eddy and doff a shirt without assistance. 3.Patient will demonstrate the ability to eddy and doff his socks using adaptive equipment. 4.Patient will be able to complete the 9 Hole peg test on the right hand to demonstrate his ability to completed self cares. PLAN: Plan to discharge patient from OT services as patient is admitted into the hospital. Thank you for this referral. If you have any questions, concerns, or comments about this report or plan, please contact me at [phone]. Dahlia Torres MS, OTR/L Occupational Therapist [facility]
== END 2018-09-15 18:00 | disposition home or self-care (01) ==
LOC: PT 10:30
PROVIDERS: ATTEND Internal Medicine
DX: Z86.73 Personal history of transient ischemic attack (TIA), and cerebral infarction without residual deficits (principal); R26.89 Other abnormalities of gait and mobility
CPT/HCPCS: 97162; 97166; 97168

== ENCOUNTER 2018-09-18 09:27 | Inpatient (IN) | payer MEDICARE, OTHER ==
[~2018-09-18] VITALS: Ht 177.8 cm; Wt 74.4 kg
--- NOTE | 2018-09-18 09:38 | ER Report ---
History and Physical Time Seen By : 09:38 Hx. of Stated Complaint: NAUSEA AND VOMITTING FOR THE LAST 3 DAYS. GOT MUCH WORSE TODAY HPI/ROS 67 y/o male with multiple medical problems presents to the ED with generalized weakness, a cough, and n/v for 3 days. He denies chest pain. No fever chills. Unable to take by mouth due to nausea and vomiting. helps him with ADLs at home, and is unable to assist due to his profound weakness. No falls. Allergies: Coded Allergies: No Known Drug Allergies (Verified , 04/10/18) Home Meds Active Scripts Losartan Potassium (LOSARTAN POTASSIUM) 50 Mg Tablet, 50 MG PO QDAY, #90 TAB 3 Refills Prov:WANG MOISE MD 09/12/18 Rosuvastatin Calcium (CRESTOR) 5 Mg Tablet, 5 MG PO QDAY, #90 TAB 3 Refills Prov:WANG MOISE MD 08/17/18 Insulin Detemir (LEVEMIR) 100 Unit/Ml Injs, 12 UNIT SUBQ BID for 90 Days, #5 SYR 9 Refills Add 2 units every 3 days until fasting blood sugars 120 or less maximum dose is 40 units per 24 hours Prov:WANG MOISE MD 08/17/18 Levothyroxine Sodium (LEVOTHYROXINE SODIUM) 0.112 Mg Tab, 0.112 MG PO QDAY, #90 TAB 3 Refills Prov:WANG MOISE MD 08/17/18 Pregabalin (LYRICA) 100 Mg Capsule, 100 MG PO BID, #180 CAPSULE 3 Refills Prov:WANG MOISE MD 08/17/18 [place], Insulin Disposable (Bd Ultra-Fine Pen Needle) 1 Each Dis.needle, BOX MC QDAY, #1 3 Refills use to administer insulin twice daily. Prov:WANG MOISE MD 06/19/18 Clopidogrel Bisulfate (CLOPIDOGREL) 75 Mg Tablet, 1 TAB PO QDAY, #90 TAB 3 Refills Prov:WANG MOISE MD 05/18/18 Metformin Hcl (METFORMIN HCL) 1,000 Mg Tablet, 1 TAB PO BID, #180 TAB 3 Refills Prov:JORGITO LIZ MD 07/28/17 Reported Medications Magnesium Oxide (MAGNESIUM OXIDE) 400 Mg Tablet, 400 MG PO QDAY 09/12/18 Ranitidine Hcl (ZANTAC) 150 Mg Tablet, 150 MG PO BID, TAB 10/31/17 Aspirin (ASPIRIN) 325 Mg Tablet, 325 MG PO QDAY, TAB 02/09/17 Discontinued Scripts Losartan Potassium (LOSARTAN POTASSIUM) 25 Mg Tablet, 25 MG PO QDAY, #90 TAB 2 Refills Prov:WANG MOISE MD 05/18/18 Hx Smoking: Yes Smoking Status: Current: Every Day Smoker Hx Substance Use Disorder: No Hx Alcohol Use: No Constitutional Vital Sign - Last 24 Hours 09/18/18 09/18/18 09/18/18 09/18/18 09:29 09:35 09:57 10:00 Temp 98.6 Pulse 85 74 Resp 16 23 B/P (MAP) 118/81 118/81 (93) 97/59 (72) Pulse Ox 85 93 O2 Delivery Room Air 09/18/18 09/18/18 09/18/18 09/18/18 10:05 10:30 10:35 10:40 Pulse 77 76 75 Resp 24 21 23 B/P (MAP) 127/80 (96) Pulse Ox 93 94 94 09/18/18 09/18/18 09/18/18 09/18/18 11:00 11:10 11:15 11:15 Pulse 78 85 85 Resp 19 20 20 B/P (MAP) 112/65 (81) Pulse Ox 94 94 94 09/18/18 09/18/18 09/18/18 09/18/18 11:30 11:30 11:45 11:45 Pulse 80 80 Resp 17 17 B/P (MAP) 122/80 (94) 122/80 (94) Pulse Ox 90 90 09/18/18 09/18/18 09/18/18 09/18/18 12:00 12:00 12:15 12:15 Pulse 81 81 Resp 16 16 B/P (MAP) 131/78 (95) 131/78 (95) Pulse Ox 93 93 09/18/18 09/18/18 09/18/18 09/18/18 12:30 12:30 12:45 12:45 Pulse 77 77 Resp 16 16 B/P (MAP) 132/86 (101) 132/86 (101) 09/18/18 09/18/18 09/18/18 09/18/18 13:00 13:00 13:00 13:30 Pulse ??? 81 Resp 16 19 B/P (MAP) 125/84 (98) 125/84 (98) 125/84 (98) 119/80 (93) Pulse Ox 88 96 09/18/18 14:00 Pulse ??? Resp 10 B/P (MAP) 132/87 (102) Pulse Ox 95 Physical Exam General Appearance: The patient is alert, has no immediate need for airway protection and no current signs of toxicity. Eyes: Pupils equal and round no injection. Respiratory: Chest is non tender, lungs are clear but diminished breath sounds throughout. Cardiac: regular rate and rhythm Gastrointestinal: Abdomen is soft and non tender, no masses, bowel sounds normal. Extremities have full range of motion and are non tender. Skin: No rashes or lesions. DIFFERENTIAL DIAGNOSIS: After history and physical exam differential diagnosis was considered for abdominal pain including but not limited to appendicitis, cholecystitis, gastritis and urinary tract infection. Medical Decision Making Data Points Result Diagram: 09/18/18 0943 09/18/18 0943 Laboratory Hematology Test 09/18/18 09:43 09/18/18 12:31 Red Blood Count 5.44 M/uL (4.00-5.60) Mean Corpuscular Volume 86.3 fL (80.0-96.0) Mean Corpuscular Hemoglobin 29.0 pg (26.0-33.0) Mean Corpuscular Hemoglobin Concent 33.6 g/dL (32.0-36.0) Red Cell Distribution Width 15.8 % (11.5-14.5) Mean Platelet Volume 9.2 fL (7.2-11.1) Neutrophils (%) (Auto) 82.9 % (39.4-72.5) Lymphocytes (%) (Auto) 9.1 % (17.6-49.6) Monocytes (%) (Auto) 7.3 % (4.1-12.4) Eosinophils (%) (Auto) 0.3 % (0.4-6.7) Basophils (%) (Auto) 0.4 % (0.3-1.4) Nucleated RBC Relative Count (auto) 0.0 /100WBC Neutrophils # (Auto) 12.2 K/uL (2.0-7.4) Lymphocytes # (Auto) 1.3 K/uL (1.3-3.6) Monocytes # (Auto) 1.1 K/uL (0.3-1.0) Eosinophils # (Auto) 0.0 K/uL (0.0-0.5) Basophils # (Auto) 0.1 K/uL (0.0-0.1) Nucleated RBC Absolute Count (auto) 0.00 K/uL Sodium Level 145 mmol/L (137-145) Potassium Level 3.8 mmol/L (3.5-5.0) Chloride Level 109 mmol/L (98-107) Carbon Dioxide Level 26 mmol/L (22-30) Blood Urea Nitrogen 19 mg/dl (9-21) Creatinine 0.90 mg/dl (0.66-1.25) Glomerular Filtration Rate Calc > 60.0 Random Glucose 171 mg/dl (75-110) Hemoglobin A1c 8.6 % (4.6-6.0) Calcium Level 9.7 mg/dl (8.4-10.2) Total Bilirubin 0.7 mg/dl (0.2-1.3) Aspartate Amino Transf (AST/SGOT) 15 U/L (0-35) Alanine Aminotransferase (ALT/SGPT) 13 U/L (0-56) Alkaline Phosphatase 83 U/L (0-126) Total Protein 7.2 g/dl (6.3-8.2) Albumin 4.2 g/dl (3.5-5.0) Lipase 35 U/L (23-300) Influenza Virus Type A (PCR) Negative (NEGATIVE) Influenza Virus Type B (PCR) Negative (NEGATIVE) Chemistry Test 09/18/18 09:43 09/18/18 12:31 White Blood Count 14.7 k/uL (4.5-11.0) Red Blood Count 5.44 M/uL (4.00-5.60) Hemoglobin 15.8 g/dL (14.0-18.0) Hematocrit 47.0 % (42.0-52.0) Mean Corpuscular Volume 86.3 fL (80.0-96.0) Mean Corpuscular Hemoglobin 29.0 pg (26.0-33.0) Mean Corpuscular Hemoglobin Concent 33.6 g/dL (32.0-36.0) Red Cell Distribution Width 15.8 % (11.5-14.5) Platelet Count 218 K/uL (150-450) Mean Platelet Volume 9.2 fL (7.2-11.1) Neutrophils (%) (Auto) 82.9 % (39.4-72.5) Lymphocytes (%) (Auto) 9.1 % (17.6-49.6) Monocytes (%) (Auto) 7.3 % (4.1-12.4) Eosinophils (%) (Auto) 0.3 % (0.4-6.7) Basophils (%) (Auto) 0.4 % (0.3-1.4) Nucleated RBC Relative Count (auto) 0.0 /100WBC Neutrophils # (Auto) 12.2 K/uL (2.0-7.4) Lymphocytes # (Auto) 1.3 K/uL (1.3-3.6) Monocytes # (Auto) 1.1 K/uL (0.3-1.0) Eosinophils # (Auto) 0.0 K/uL (0.0-0.5) Basophils # (Auto) 0.1 K/uL (0.0-0.1) Nucleated RBC Absolute Count (auto) 0.00 K/uL Glomerular Filtration Rate Calc > 60.0 Hemoglobin A1c 8.6 % (4.6-6.0) Calcium Level 9.7 mg/dl (8.4-10.2) Total Bilirubin 0.7 mg/dl (0.2-1.3) Aspartate Amino Transf (AST/SGOT) 15 U/L (0-35) Alanine Aminotransferase (ALT/SGPT) 13 U/L (0-56) Alkaline Phosphatase 83 U/L (0-126) Total Protein 7.2 g/dl (6.3-8.2) Albumin 4.2 g/dl (3.5-5.0) Lipase 35 U/L (23-300) Influenza Virus Type A (PCR) Negative (NEGATIVE) Influenza Virus Type B (PCR) Negative (NEGATIVE) EKG/Imaging Imaging X-ray: location was obtained. I viewed the images myself on the PACS system. My interpretation of the images is: Multilobar pneumonia. The radiologist interpretation had no clinically significant variation from this interpretation. ED Course/Re-evaluation ED Course Uncomplicated multi lobar community acquired pneumonia. Also with nausea and vomiting. Patient profoundly weak both from pneumonia likely an recent nausea vomiting. Benign abdominal exam. No need for further imaging. Influenza is negative. Able to take by mouth without vomiting. Requiring supplemental oxygen secondary to multilobar pneumonia. Given IV antibiotics, and will be admitted for further IV antibiotics and observation. Decision to Disposition Date: Sep 18, 2018 Decision to Disposition Time: 15:02 Depart Departure Latest Vital Signs Vital Signs Date Time Temp Pulse Resp B/P (MAP) Pulse Ox O2 Delivery O2 Flow Rate FiO2 09/18/18 14:00 ??? 10 132/87 (102) 95 09/18/18 09:29 98.6 Room Air Impression: Primary Impression: CAP (community acquired pneumonia) Condition: Improved Disposition: Admitted from ER Referrals: WANG MOISE MD (PCP) Problem Qualifiers Primary Impression: CAP (community acquired pneumonia) Laterality: unspecified laterality Qualified Codes: J18.9 - Pneumonia, unspecified organism SAGAR BRADLEY MD Sep 18, 2018 09:38
[2018-09-18] MEDS ORDERED: ONDANSETRON 4 MG/2 ML VIAL IVP ONE (09:40)
[2018-09-18] MEDS ORDERED: NS(*) 0.9% 1000 ML BAG 1,000 ML IV ONE ×2 (09:40→10:55)
[2018-09-18 09:49] LABS: PLATELET COUNT, AUTOMATED 218 K/uL (150-450)
[2018-09-18] MEDS ORDERED: METOCLOPRAMIDE 10 MG/2 ML SDV IVP ONE (10:55)
--- NOTE | 2018-09-18 13:21 | RADIOLOGY IMAGING REPORT ---
FACILITY: [facility] [place]IENT NAME: Toribio Angel : 1950 MR: [id number] V: [id number] EXAM DATE: ORDERING PHYSICIAN: SAGAR BRADLEY TECHNOLOGIST: Location: [facility] [place] Patient: Toribio Angel : 1950 Visit/Account:[id number] Date of Sevice: 09/18/2018 Exam type: CHEST SINGLE AP History: hypoxia, flu-like symptoms Comparison: September 11, 2018. Findings: There patchy infiltrates seen throughout the lungs more prominent in the right lung than the left. M ild interstitial prominence also noted bilaterally. The cardiac silhouette is normal in size. There is no evidence of pleural effusions. Sternotomy sutures are present. IMPRESSION: 1. There patchy infiltrates noted bilaterally, right more so than left with interstitial prominence also noted throughout the lungs. Findings are likely related to multifocal pneumonia Report Dictated By: Annel Castillo MD at 09/18/2018 1:13 PM Report E-Signed By: Annel Castillo MD at 09/18/2018 1:15 PM WSN:[email or web address]
[2018-09-18] MEDS ORDERED: AZITHROMYCIN(*) 500 MG 500 MG in NS(*) 0.9% 250 ML BAG 250 ML IVPB ONE (13:40)
[2018-09-18] MEDS ORDERED: cefTRIAXone 1 GM VIAL IVP ONE (13:40)
[2018-09-18 14:46] VITALS: BP 141/87
[2018-09-18] MEDS ORDERED: ACETAMINOPHEN 325 MG TAB PO PRN (15:00)
[2018-09-18] MEDS ORDERED: ALBUTEROL 2.5 MG/3 ML NEB NEB PRN (15:00)
[2018-09-18] MEDS ORDERED: METOCLOPRAMIDE 10 MG/2 ML SDV IVP PRN (15:00)
--- NOTE | 2018-09-18 15:29 | History & Physical ---
History of Present Illness Chief Complaint cough, fever, nausea and vomiting History of Present Illness He presented to the emergency department with shortness of breath, cough and fever, which started . He reports he got much worse Tuesday and started having nausea and vomiting. He denies chest pain. He has a history of CVA and FL in the past, which his reports much weakness to his right side. He does wear assistive devices to help him with ambulation. He denies any falls. His helps care for patient due to his weakness from CVA. His reports recently he has had urinary incontinence, so she has been treating his with Azo. He was noted to have infiltrates bilaterally on CXR. He received azithromycin and ceftriazone in the ER. He is requiring 2L now. He denies wearing oxygen at home. He was recommended for admission. History Problems: (1) Type 2 diabetes mellitus Status: Chronic (2) CVA (cerebral vascular accident) Status: Chronic (3) Hypertension Status: Chronic (4) TIA (transient ischemic attack) Status: Chronic (5) Hyperlipidemia Status: Chronic (6) Hypothyroidism Status: Chronic (7) S/P CABG (coronary artery bypass graft) Status: Chronic Home Meds Active Scripts Losartan Potassium (LOSARTAN POTASSIUM) 50 Mg Tablet, 50 MG PO QDAY, #90 TAB 3 Refills Prov:WANG MOISE MD 09/12/18 Rosuvastatin Calcium (CRESTOR) 5 Mg Tablet, 5 MG PO QDAY, #90 TAB 3 Refills Prov:WANG MOISE MD 08/17/18 Insulin Detemir (LEVEMIR) 100 Unit/Ml Injs, 12 UNIT SUBQ BID for 90 Days, #5 SYR 9 Refills Add 2 units every 3 days until fasting blood sugars 120 or less maximum dose is 40 units per 24 hours Prov:WANG MOISE MD 08/17/18 Levothyroxine Sodium (LEVOTHYROXINE SODIUM) 0.112 Mg Tab, 0.112 MG PO QDAY, #90 TAB 3 Refills Prov:WANG MOISE MD 08/17/18 Pregabalin (LYRICA) 100 Mg Capsule, 100 MG PO BID, #180 CAPSULE 3 Refills Prov:WANG MOISE MD 08/17/18 [place], Insulin Disposable (Bd Ultra-Fine Pen Needle) 1 Each Dis.needle, BOX MC QDAY, #1 3 Refills use to administer insulin twice daily. Prov:WANG MOISE MD 06/19/18 Clopidogrel Bisulfate (CLOPIDOGREL) 75 Mg Tablet, 1 TAB PO QDAY, #90 TAB 3 Refills Prov:WANG MOISE MD 05/18/18 Metformin Hcl (METFORMIN HCL) 1,000 Mg Tablet, 1 TAB PO BID, #180 TAB 3 Refills Prov:JORGITO LIZ MD 07/28/17 Reported Medications Magnesium Oxide (MAGNESIUM OXIDE) 400 Mg Tablet, 400 MG PO QDAY 09/12/18 Ranitidine Hcl (ZANTAC) 150 Mg Tablet, 150 MG PO BID, TAB 10/31/17 Aspirin (ASPIRIN) 325 Mg Tablet, 325 MG PO QDAY, TAB 02/09/17 Discontinued Scripts Losartan Potassium (LOSARTAN POTASSIUM) 25 Mg Tablet, 25 MG PO QDAY, #90 TAB 2 Refills Prov:WANG MOISE MD 05/18/18 Allergies: Coded Allergies: No Known Drug Allergies (Verified , 04/10/18) Patient History: FH: CAD (coronary artery disease) MOTHER, , Age:60 FH: CVA (cerebrovascular accident) MOTHER, , Age:60 FH: CVA (cerebrovascular accident) MOTHER, , Age:60 FH: CVA (cerebrovascular accident) MOTHER, , Age:60 FH: type 2 diabetes mellitus MOTHER, , Age:60 Hx Smoking: Yes Smoking Status: Current: Every Day Smoker Caffeine Intake: Coffee, Soda Caffeine/Cups Per Day: 5-10 CUPS COFFEE, 1 SODA PER DAY Hx Alcohol Use: No Social Drug Use: Never Review of Systems All Systems Reviewed/Normal: Yes, Except as Noted Constitutional: Fever, Chills Respiratory: Shortness of Breath, Cough Gastrointestinal: Nausea, Vomiting Genitourinary: Urinary Incontinence Exam Vital Signs Vital Signs Date Time Temp Pulse Resp B/P (MAP) Pulse Ox O2 Delivery O2 Flow Rate FiO2 09/18/18 14:30 84 17 134/87 (103) 91 09/18/18 09:29 98.6 Room Air General Appearance: Alert, Awake, No Acute Distress, Afebrile Neuro: No Gross deficits Cardiovascular: Regular Rate and Rhythm Respiratory: No Respiratory Distress, Other (dimisinished throughout bilaterally) GI: Abd Soft and Non-Tender Extremities: Warm, Perfused; No Edema Psych: Alert & Oriented X3, Appropriate Mood & Affect Medical Decision Making Data Points Result Diagram: 09/18/1843 09/18/1843 Item Value Date Time Hemoglobin A1c 8.6 % H 09/18/18942 Assessment and Plan Problems: (1) CAP (community acquired pneumonia) Status: Acute Assessment & Plan: He presented with elevated WBC count, cough and shortness of breath. His chest x-ray shows multifocal pneumonia. He will be placed on azithromycin and ceftriaxone. He will also get albuterol nebs as needed and Mucinex. He will receive supplemental oxygen. (2) Type 2 diabetes mellitus Status: Chronic Assessment & Plan: He is on chronic treatment with Metformin and Levemir. The Metformin will be held at this time. He will receive his usual Levemir dose, AC/HS blood glucose checks, and SS insulin #2. (3) Hypothyroidism Status: Chronic Assessment & Plan: He is on chronic treatment Levothyroxine. Continue. (4) Hyperlipidemia Status: Chronic Assessment & Plan: He is on chronic treatment with Crestor. Continue. (5) Hypertension Status: Chronic Assessment & Plan: He is on chronic treatment with Losartan. This has been restarted with hold parameters. (6) CVA (cerebral vascular accident) Status: Chronic Assessment & Plan: He does have residual right sided weakness. He is on chronic treatment with Aspirin. Continue. (7) S/P CABG (coronary artery bypass graft) Status: Chronic Assessment & Plan: He is on chronic treatment with Plavix. Continue. Venous Thromboembolism Antithrombotics Is Pt On Any Antithrombotics?: Yes Exam Sepsis Risk: No Definite Risk Problem Qualifiers (1) CAP (community acquired pneumonia): Laterality: unspecified laterality Qualified Codes: J18.9 - Pneumonia, unspecified organism JOANN SCHMITT BREAKFAST HOSTESS Sep 18, 2018 15:29
[2018-09-18 18:43] VITALS: BP 154/87
[2018-09-18] MEDS: RANITIDINE HCL 150 MG TAB PO SCH (21:15)
[2018-09-18] MEDS: guaiFENesin 600 MG TABCR PO SCH (21:15)
[2018-09-18] MEDS: PREGABALIN 50 MG CAPSULE PO SCH (21:15)
[2018-09-18] MEDS: INSULIN DETEMIR 100 U/ML 3 ML PEN SUBQ SCH (21:16)
[2018-09-19 03:29] VITALS: BP 159/88
[2018-09-19] MEDS: LEVOTHYROXINE SOD 0.112 MG TAB PO SCH (05:28)
[2018-09-19 06:37] LABS: PLATELET COUNT, AUTOMATED 176 K/uL (150-450)
[2018-09-19 07:46] VITALS: BP 119/60
[2018-09-19] MEDS: LOSARTAN POTASSIUM 50 MG TAB PO SCH (10:18)
[2018-09-19] MEDS: ROSUVASTATIN CALCIUM 10 MG TAB PO SCH (10:19)
[2018-09-19] MEDS: RANITIDINE HCL 150 MG TAB PO SCH ×2 (10:19→20:29)
[2018-09-19] MEDS: PREGABALIN 50 MG CAPSULE PO SCH ×2 (10:19→20:29)
[2018-09-19] MEDS: guaiFENesin 600 MG TABCR PO SCH ×2 (10:19→20:29)
[2018-09-19] MEDS: CLOPIDOGREL BISULFATE 75MG TAB PO SCH (10:19)
[2018-09-19] MEDS: ASPIRIN 325 MG TAB PO SCH (10:20)
[2018-09-19] MEDS: ENOXAPARIN 40 MG/0.4ML SYR SC SCH (10:20)
[2018-09-19 10:23] VITALS: Ht 177.8 cm; Wt 74.4 kg
[2018-09-19] MEDS: INSULIN DETEMIR 100 U/ML 3 ML PEN SUBQ SCH ×2 (10:25→20:29)
--- NOTE | 2018-09-19 10:33 | Hospitalist Progress Note ---
Subjective Progress Notes Subjective He was admitted with pneumonia. He has no complaints this morning. He reports some improvement in symptoms. Patient Complains of: Cardiovascular: No: Chest Pain Respiratory: No: Shortness of Breath Physical Exam Vital Signs Date Time Temp Pulse Resp B/P (MAP) Pulse Ox O2 Delivery O2 Flow Rate FiO2 09/19/18 10:29 85 09/19/18 08:02 Nasal Cannula 2.0 09/19/18 07:46 98.0 72 16 119/60 (79) Intake and Output 09/19/18 06:59 Intake Total 2697 ml Balance 2697 ml Intake Oral 560 ml IV Total 2137 ml # Voids 1 # Bowel Movements 1 General Appearance: Alert, Awake, No Acute Distress, Afebrile Neuro: No Gross deficits Cardiovascular: Regular Rate and Rhythm Respiratory: No Respiratory Distress, Clear to Auscultation GI: Soft and Non-Tender Psych: Alert & Oriented X3, Appropriate Mood & Affect Result Diagram: 09/19/18 0532 09/19/18 0532 Assessment and Plan Problems: (1) CAP (community acquired pneumonia) Status: Acute Assessment & Plan: He presented with elevated WBC count, cough and shortness of breath. His chest x-ray shows multifocal pneumonia. He was placed on azithromycin and ceftriaxone. He will also get albuterol nebs as needed and Mucinex. He will receive supplemental oxygen. (2) Type 2 diabetes mellitus Status: Chronic Assessment & Plan: He is on chronic treatment with Metformin and Levemir. The Metformin will be held at this time. He will receive his usual Levemir dose, AC/HS blood glucose checks, and SS insulin #2. (3) Hypothyroidism Status: Chronic Assessment & Plan: He is on chronic treatment Levothyroxine. Continue. (4) Hyperlipidemia Status: Chronic Assessment & Plan: He is on chronic treatment with Crestor. Continue. (5) Hypertension Status: Chronic Assessment & Plan: He is on chronic treatment with Losartan. This has been restarted with hold parameters. (6) CVA (cerebral vascular accident) Status: Chronic Assessment & Plan: He does have residual right sided weakness. He is on chronic treatment with Aspirin. Continue. (7) S/P CABG (coronary artery bypass graft) Status: Chronic Assessment & Plan: He is on chronic treatment with Plavix. Continue. Exam Sepsis Risk: No Definite Risk Problem Qualifiers (1) CAP (community acquired pneumonia): Laterality: unspecified laterality Qualified Codes: J18.9 - Pneumonia, unspecified organism JOANN SCHMITTP Sep 19, 2018 10:33
[2018-09-19] MEDS: INSULIN HUM LISPRO 100 UN/ML 3 ML VIAL SUBQ PRN ×3 (11:54→20:30)
--- NOTE | 2018-09-19 13:53 | NUR ---
Physical Therapy Impression PT/OT co-eval completed. Recommend pt only complete stand-pivot transfers with nursing. Pt demos poor safety awareness during ambulation and required Mod/Max assist by PT using tactile cues and assist for swing through to avoid catching R) foot and to maintain center of gravity over base of support to avoid an extreme loss of balance. Physical Therapy Goals 1. Pt to be SBA/Mod indep for bed mobility 2. Pt to be SBA/Mod indep to maintain sitting balance at edge of bed 3. Pt to be Min/Mod assist for stand-pivot transfer to/from a variety of surfaces. Patient's Goals
--- NOTE | 2018-09-19 14:14 | NUR ---
Occupational Therapy Impression Co-evaluation with PT. Pt. would benefit from OT services 5x/ week to increase independence in ADL's. Pt. would benefit from care services or Assisted Living with care upon d/c. Occupational Therapy Goals 1. Pt. to perform showering activities with Mod A. 2. Pt. to perform dressing activities with Mod A. 3. Pt. to perform grooming activities with Min A. 4. Pt. to perform toileting activities with Min A. Patient's Goal
[2018-09-19 14:36] VITALS: BP 166/90
[2018-09-19] MEDS: cefTRIAXone 1 GM VIAL IVP SCH (14:46)
[2018-09-19] MEDS: AZITHROMYCIN(*) 500 MG 500 MG in NS(*) 0.9% 250 ML BAG 250 ML IVPB SCH (14:47)
[2018-09-19] MEDS ORDERED: NS(*) 0.9% 250 ML BAG 250 ML ONE (16:17)
[2018-09-19] MEDS ORDERED: NS(*) 0.9% 250 ML BAG 250 ML in NS(*) 0.9% 250 ML BAG 250 ML IV PRN (16:20)
[2018-09-19 19:16] VITALS: BP 171/107
[2018-09-19 20:00] VITALS: BP 166/94
[2018-09-20] VITALS (9 sets, daily range): BP systolic 95–193; BP diastolic 63–102
[2018-09-20] MEDS ORDERED: hydrALAZINE HCL 20 MG/ML VIAL IVP PRN (00:30)
[2018-09-20] MEDS: LEVOTHYROXINE SOD 0.112 MG TAB PO SCH (05:42)
--- NOTE | 2018-09-20 06:37 | NUR ---
I talked to patient's on the phone last night. She expressed concern over her 's dependent state and admitted she has been very "burnt out". She was upset and tearful, saying that her has been angry at her and can be manipulative. She explained her is not interested in assisted living.
[2018-09-20] MEDS: ENOXAPARIN 40 MG/0.4ML SYR SC SCH (08:08)
[2018-09-20] MEDS: INSULIN HUM LISPRO 100 UN/ML 3 ML VIAL SUBQ PRN ×4 (08:08→21:25)
[2018-09-20] MEDS: INSULIN DETEMIR 100 U/ML 3 ML PEN SUBQ SCH ×2 (08:08→21:27)
[2018-09-20] MEDS: PREGABALIN 50 MG CAPSULE PO SCH ×2 (08:09→21:24)
[2018-09-20] MEDS: RANITIDINE HCL 150 MG TAB PO SCH ×2 (08:09→21:24)
[2018-09-20] MEDS: CLOPIDOGREL BISULFATE 75MG TAB PO SCH (08:09)
[2018-09-20] MEDS: ASPIRIN 325 MG TAB PO SCH (08:09)
[2018-09-20] MEDS: guaiFENesin 600 MG TABCR PO SCH ×2 (08:09→21:25)
[2018-09-20] MEDS: ROSUVASTATIN CALCIUM 10 MG TAB PO SCH (08:09)
[2018-09-20] MEDS: LOSARTAN POTASSIUM 50 MG TAB PO SCH (08:09)
[2018-09-20] MEDS ORDERED: INFLUENZA VIRUS VAC 0.5ML SYR IM ONLY ONE (09:00)
--- NOTE | 2018-09-20 11:09 | NUR ---
Occupational Therapy Impression Co-treat with PT. Pt. requiring Max A to ambulate with use of FWW and raffi chair following behind. Pt. on room air with O2 sats kept above 90% throughout entirety of therapy session. Recommend pt. d/c with care and additional services, if needed. Pt.'s in agreement with this plan. Continue with POC. Occupational Therapy Goals 1. Pt. to perform showering activities with Mod A. 2. Pt. to perform dressing activities with Mod A. 3. Pt. to perform grooming activities with Min A. 4. Pt. to perform toileting activities with Min A. Patient's Goal
--- NOTE | 2018-09-20 12:15 | Hospitalist Progress Note ---
Subjective Progress Notes Subjective He reports feeling improved/stronger. Physical Exam Vital Signs Date Time Temp Pulse Resp B/P (MAP) Pulse Ox O2 Delivery O2 Flow Rate FiO2 09/20/18 11:13 96.8 86 20 95/63 (74) 90 Room Air 09/20/18 08:07 1.0 Intake and Output 09/20/18 07:00 Intake Total 920 ml Balance 920 ml Intake Oral 920 ml # Voids 4 General Appearance: Alert, Awake Neuro: Other (mild right hemiparesis) Cardiovascular: Regular Rate and Rhythm Respiratory: Other (fairly clear with few scattered rhonchi) GI: Soft and Non-Tender Extremities: Warm, Perfused Result Diagram: 09/19/18 0532 09/19/1832 Assessment and Plan Problems: (1) CAP (community acquired pneumonia) Status: Acute Assessment & Plan: He presented with elevated WBC count, cough, and shortness of breath. His chest x-ray showed multifocal pneumonia. He was placed on IV azithromycin and ceftriaxone. He is also getting albuterol nebs as needed and Mucinex. His oxygen requirement has improved and may be able to get him to RA. He has been rather weak and has not been able to do his transfers as easily. He will work with PT/OT. He may need more help at home as well (at least initially). (2) Type 2 diabetes mellitus Status: Chronic Assessment & Plan: He is on chronic treatment with Metformin and Levemir. The Metformin has been held. He is receiving his usual Levemir dose, AC/HS blood glu cose checks, and SS insulin #2. (3) Hypothyroidism Status: Chronic Assessment & Plan: He is on chronic treatment Levothyroxine. Continue. (4) Hyperlipidemia Status: Chronic Assessment & Plan: He is on chronic treatment with Crestor. Continue. (5) Hypertension Status: Chronic Assessment & Plan: He is on chronic treatment with Losartan. This has been restarted with hold parameters. (6) CVA (cerebral vascular accident) Status: Chronic Assessment & Plan: He does have residual right sided weakness. He is on chronic treatment with Aspirin. Continue. (7) S/P CABG (coronary artery bypass graft) Status: Chronic Assessment & Plan: He is on chronic treatment with Plavix. Continue. Exam Sepsis Risk: No Definite Risk Problem Qualifiers (1) CAP (community acquired pneumonia): Laterality: unspecified laterality Qualified Codes: J18.9 - Pneumonia, uns pecified organism EDIN RODRIGUEZ MD Sep 20, 2018 12:15
--- NOTE | 2018-09-20 12:55 | NUR ---
Physical Therapy Impression Pt at baseline functional level and recommend Pt only perform stand pivot transfers at home which is his baseline. Recommend home health at this time. Pt's SO2 >90% on room air during ambulation. Physical Therapy Goals Patient's Goals
[2018-09-20] MEDS: AZITHROMYCIN(*) 500 MG 500 MG in NS(*) 0.9% 250 ML BAG 250 ML IVPB SCH (13:16)
[2018-09-20] MEDS: cefTRIAXone 1 GM VIAL IVP SCH (13:16)
[2018-09-21 00:39] VITALS: BP 165/96
[2018-09-21] MEDS: LEVOTHYROXINE SOD 0.112 MG TAB PO SCH (05:34)
[2018-09-21 06:03] LABS: PLATELET COUNT, AUTOMATED 183 K/uL (150-450)
[2018-09-21 07:41] VITALS: BP 158/99
[2018-09-21] MEDS: CLOPIDOGREL BISULFATE 75MG TAB PO SCH (08:13)
[2018-09-21] MEDS: ASPIRIN 325 MG TAB PO SCH (08:13)
[2018-09-21] MEDS: PREGABALIN 50 MG CAPSULE PO SCH (08:13)
[2018-09-21] MEDS: RANITIDINE HCL 150 MG TAB PO SCH (08:13)
[2018-09-21] MEDS: ENOXAPARIN 40 MG/0.4ML SYR SC SCH (08:13)
[2018-09-21] MEDS: INSULIN DETEMIR 100 U/ML 3 ML PEN SUBQ SCH (08:13)
[2018-09-21] MEDS: ROSUVASTATIN CALCIUM 10 MG TAB PO SCH (08:14)
[2018-09-21] MEDS: guaiFENesin 600 MG TABCR PO SCH (08:14)
[2018-09-21] MEDS: LOSARTAN POTASSIUM 50 MG TAB PO SCH (08:14)
[2018-09-21] MEDS ORDERED: AZIT-18 PO (09:31)
[2018-09-21] MEDS ORDERED: CEF300 PO (09:31)
--- NOTE | 2018-09-21 09:35 | Hospitalist Depart ---
Discharge Summary Reason for Hosp/Final Diag: (1) CAP (community acquired pneumonia) Status: Acute Hospital Course & Plan: He did present with a cough and shortness of breath. His chest x-ray showed multifocal pneumonia. He was placed on IV azithromycin and ceftriaxone. His cultures were negative. He will complete a course of oral azithromycin and cefdinir. (2) Type 2 diabetes mellitus Status: Chronic Hospital Course & Plan: He is on chronic treatment with Metformin and Levemir. (3) Hypothyroidism Status: Chronic Hospital Course & Plan: He is on chronic treatment Levothyroxine. (4) Hyperlipidemia Status: Chronic Hospital Course & Plan: He is on chronic treatment with Crestor. (5) Hypertension Status: Chronic Hospital Course & Plan: He is on chronic treatment with Losartan. (6) CVA (cerebral vascular accident) Status: Chronic Hospital Course & Plan: He does have residual right sided weakness. He is on chronic treatment with Aspirin. (7) S/P CABG (coronary artery bypass graft) Status: Chronic Hospital Course & Plan: He is on chronic treatment with Plavix. Departure Latest Vital Signs Vital Signs 09/21/18 07:41 Temp 98.4 Pulse 73 Resp 20 B/P (MAP) 158/99 (118) Pulse Ox 90 O2 Delivery Nasal Cannula O2 Flow Rate 1.0 Weight (Pounds): 164 Result Diagram: 09/21/1847 09/21/18546 Condition: Improved Discharge: Home, Home Health PT/OT Follow Up For: PT For Strengthening, OT For ADL's, PT Evaluation and Treat, OT Evaluation and Treat Home Health F[facility] GLOSSER Follow Up For: ADL Assistance Discharge Instructions Home Meds Active Scripts Cefdinir 300 Mg Cap (OMNICEF 300 MG CAP (OR EQUIV)) 300 Mg Cap, 300 MG PO BID, #6 CAP Prov:MARIELA ARCHULETA DO 09/21/18 Azithromycin 250 Mg Tab (AZITHROMYCIN 250 MG TAB) 250 Mg Tablet, 1 TAB PO QDAY, #2 TAB Prov:MARIELA ARCHULETA DO 09/21/18 Losartan Potassium (LOSARTAN POTASSIUM) 50 Mg Tablet, 50 MG PO QDAY, #90 TAB 3 Refills Prov:WANG MOISE MD 09/12/18 Rosuvastatin Calcium (CRESTOR) 5 Mg Tablet, 5 MG PO QDAY, #90 TAB 3 Refills Prov:WANG MOISE MD 08/17/18 Insulin Detemir (LEVEMIR) 100 Unit/Ml Injs, 12 UNIT SUBQ BID for 90 Days, #5 SYR 9 Refills Add 2 units every 3 days until fasting blood sugars 120 or less maximum dose is 40 units per 24 hours Prov:WANG MOISE MD 08/17/18 Levothyroxine Sodium (LEVOTHYROXINE SODIUM) 0.112 Mg Tab, 0.112 MG PO QDAY, #90 TAB 3 Refills Prov:WANG MOISE MD 08/17/18 Pregabalin (LYRICA) 100 Mg Capsule, 100 MG PO BID, #180 CAPSULE 3 Refills Prov:WANG MOISE MD 08/17/18 Wann, Insulin Disposable (Bd Ultra-Fine Pen Needle) 1 Each Dis.needle, BOX MC QDAY, #1 3 Refills use to administer insulin twice daily. Prov:WANG MOISE MD 06/19/18 Clopidogrel Bisulfate (CLOPIDOGREL) 75 Mg Tablet, 1 TAB PO QDAY, #90 TAB 3 Refills Prov:WANG MOISE MD 05/18/18 Metformin Hcl (METFORMIN HCL) 1,000 Mg Tablet, 1 TAB PO BID, #180 TAB 3 Refills Prov:JORGITO LIZ MD 07/28/17 Reported Medications Magnesium Oxide (MAGNESIUM OXIDE) 400 Mg Tablet, 400 MG PO QDAY 09/12/18 Ranitidine Hcl (ZANTAC) 150 Mg Tablet, 150 MG PO BID, TAB 10/31/17 Aspirin (ASPIRIN) 325 Mg Tablet, 325 MG PO QDAY, TAB 02/09/17 Diet: Diabetic Activity: As Tolerated Copies to: WANG MOISE MD ; Venous Thromboembolism Antithrombotics Is Pt On Any Antithrombotics?: Yes [id number] Certification Face to Face Home Health Certification Institutional Provider conducted the [id number] encounter. Electronic Undersigning Physician Certifies Home Health. I certify that the patient has been under my care and that I had a [id number] encounter that meets the physician jeve-im-vput encounter requirements with this patient. This patient is home-bound due to safety issues and continues to require assistance with ADL's. I certify that based on my findings, that Nursing, Aides and the following Home Health services are medically necessary: Medical Necessity: Nursing, Rehab Date Face to Face Conducted: Sep 21, 2018 Problem Qualifiers (1) CAP (community acquired pneumonia): Laterality: unspecified laterality Qualified Codes: J18.9 - Pneumonia, unspecified organism MARIELA ARCHULETA DO Sep 21, 2018 09:35
[2018-09-21 10:53] VITALS: BP 137/84
--- NOTE | 2018-09-21 12:12 | NUR ---
OCCUPATIONAL THERAPY Dressing Assistance: Dressing Aid Required: Bathing Assistance: Bathing Equipment: Home Assessment: Not Completed Feeding Assistance: Set- up Feeding Specialized Equipment: N/A Toilet Use: Verbalizes Needs: Yes Understands Precautions: Yes Cooperative: Yes Family Teaching: Yes Occupational Therapy Comment: Pt. will d/c to home with HH care and for assistance with ADL's.
[2018-09-21] MEDS: cefTRIAXone 1 GM VIAL IVP SCH (13:02)
--- NOTE | 2018-09-21 13:23 | Medical Nutrition Therapy ---
Nutritional Education Nutrition Education Topic: Diabetic Nutrition Learning Readiness: Interested Teaching Methods: Discussion, Handout Response to Teaching: Verbalize understanding Teaching Recipient: Patient Nutrition Counseling: Pt states does not follow any diet for diabetes. Pt states eats "a lot" of fruit. Provided hanout listing CHO contining foods and portion sizes. Encouraged pt to limit CHO to 304 servings or ~ 2c/meal. enocuraged adding protein and fat when eating CHO to reduce glycemic response. Nutrition Monitoring & Eval RD Patient Assessment Time: 15 minutes Patient Nutrition Acuity: 3-Mild Follow Up Date: Sep 22, 2018 Nutritional Comment: Pt admitted for pneumonia. Pt has dx T2DM. BG ranging 65-171. Pt is on insulin and COLLETTE. Pt ate 75% of first meal in facility. Recommend change to CHO controlled diet for consistency with CHO intake. W\\alb 4.2, A1C 8.6. Will offer diabetic diet education when appropriate. MAY STEEN Sep 21, 2018 13:23
--- NOTE | 2018-09-21 14:45 | NUR ---
VISHNU visited with the pt's on 09/18/18 by the physical therapist's request about her concerns for caring for the at home. 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 She states she would like some extra help in the home and is willing to pay out of pocket for those services. She stated they had [facility] in the past, which was helpful, however they did discharge the patient from their care and now she doesn't have any support. She states they have several dogs, which are a handful, and she is not able to clean as much as she would like to. Bernice stated the patient has been refusing to leave bed and chooses to urinate in a urinal from the bedside, however, the patient frequently urinates in the bed, which results in a lot of excess laundry. She reports she also feels manipulated by the patient, although this is not new and she doesnt feel this is a result of his strokes, but she is feeling more bothered by this kind of behavior lately. VISHNU gave Bernice information on [facility], [facility] and [facility]. Bernice seemed appreciative of the information and indicated she would try to speak candidly with the pt about her needs as a caregiver.
== END 2018-09-21 14:00 | disposition home or self-care (01) | DRG 194 ==
LOC: ER 09:49 → MED 14:22
PROVIDERS: ADMIT Family Medicine; ATTEND Family Medicine
DX: J18.9 Pneumonia, unspecified organism (principal); I69.851 Hemiplegia and hemiparesis following other cerebrovascular disease affecting right dominant side; E11.9 Type 2 diabetes mellitus without complications; I10 Essential (primary) hypertension; F17.210 Nicotine dependence, cigarettes, uncomplicated; E03.9 Hypothyroidism, unspecified; E78.5 Hyperlipidemia, unspecified; Z95.1 Presence of aortocoronary bypass graft; I25.2 Old myocardial infarction; Z79.84 Long term (current) use of oral hypoglycemic drugs
CPT/HCPCS: 36415; 36416; 71045; 81001; 82040; 82247; 82310; 82374; 82435; 82565; 82947; 82948; 83036; 83690; 84075; 84132; 84155; 84295; 84450; 84460; 84520; 85025; 87502; 94667; 94668; 96361; 96365; 96375; 97161; 97166; 99285; J0360; J0456; J0696; J1650; J1815; J2405; J2765; J7030; J7050

== ENCOUNTER → 2018-09-18 | Outpatient (CLI) | payer MEDICARE, OTHER ==
[2018-09-19 10:23] VITALS: BMI 23.5
== END ==
LOC: AMB 09:01
PROVIDERS: ATTEND Nurse Practitioner
DX: R53.1 Weakness (principal); R11.10 Vomiting, unspecified; R09.02 Hypoxemia
CPT/HCPCS: A0425; A0427

== ENCOUNTER 2018-09-27 19:04 | Inpatient (IN) | payer MEDICARE, OTHER ==
[~2018-09-27] VITALS: Ht 175.3 cm; Wt 70.8 kg
[~2018-09-27 19:04] MED LIST changes: -AMLO-125 PO; -ASPI81TA86 PO; -POTA20TA94 PO; -WARF-1 PO
--- NOTE | 2018-09-27 19:11 | ER Report ---
History and Physical Time Seen By MD: 19:11 Hx. of Stated Complaint: ALOC MORE THAN USUAL PER FAMILY HPI/ROS CHIEF COMPLAINT: altered level of consciousness HISTORY OF PRESENT ILLNESS: This is a 67 year old male. He was brought to the ER tonight by EMS. indicated that he is more confused than normal. He has recently been admitted and discharged from the hospital for pneumonia, discharged on 09/21/18 to finish course of Azithromycin and Cefdinir. had said that the right sided weakness residual from prior stroke seems worse. The patient does not know why he is here. He said that his was mad about kim contreras and sent him here. REVIEW OF SYSTEMS: Constitutional: [No fever or chills.] Eyes: [No discharge.] [No vision changes.] ENT: [No sore throat.] [No congestion.] [No hearing changes.] Cardiovascular: [No chest pain.] [No palpitations.] Respiratory: [No cough.] [No shortness of breath.] Gastrointestinal: [No abdominal pain.] [No nausea or vomiting.] [No change in bowel movements.] [No blood in the stool or melena.] Genitourinary: [No dysuria.] [No hematuria.] [No frequency] Musculoskeletal: [No back pain.] [No extremity pain.] Skin: [No rashes.] [No bruising.] Neurological: [No numbness.] [No weakness.] [No headache.] Allergies: Coded Allergies: No Known Drug Allergies (Verified , 09/27/18) Home Meds Active Scripts Cefdinir 300 Mg Cap (OMNICEF 300 MG CAP (OR EQUIV)) 300 Mg Cap, 300 MG PO BID, #6 CAP Prov:MARIELA ARCHULETA DO 09/21/18 Azithromycin 250 Mg Tab (AZITHROMYCIN 250 MG TAB) 250 Mg Tablet, 1 TAB PO QDAY, #2 TAB Prov:MARIELA ARCHULETA DO 09/21/18 Losartan Potassium (LOSARTAN POTASSIUM) 50 Mg Tablet, 50 MG PO QDAY, #90 TAB 3 Refills Prov:WANG MOISE MD 09/12/18 Rosuvastatin Calcium (CRESTOR) 5 Mg Tablet, 5 MG PO QDAY, #90 TAB 3 Refills Prov:WANG MOISE MD 08/17/18 Insulin Detemir (LEVEMIR) 100 Unit/Ml Injs, 12 UNIT SUBQ BID for 90 Days, #5 SYR 9 Refills Add 2 units every 3 days until fasting blood sugars 120 or less maximum dose is 40 units per 24 hours Prov:WANG MOISE MD 08/17/18 Levothyroxine Sodium (LEVOTHYROXINE SODIUM) 0.112 Mg Tab, 0.112 MG PO QDAY, #90 TAB 3 Refills Prov:WANG MOISE MD 08/17/18 Pregabalin (LYRICA) 100 Mg Capsule, 100 MG PO BID, #180 CAPSULE 3 Refills Prov:WANG MOISE MD 08/17/18 Jay Em, Insulin Disposable (Bd Ultra-Fine Pen Needle) 1 Each Dis.needle, BOX MC QDAY, #1 3 Refills use to administer insulin twice daily. Prov:WANG MOISE MD 06/19/18 Clopidogrel Bisulfate (CLOPIDOGREL) 75 Mg Tablet, 1 TAB PO QDAY, #90 TAB 3 Refills Prov:WANG MOISE MD 05/18/18 Metformin Hcl (METFORMIN HCL) 1,000 Mg Tablet, 1 TAB PO BID, #180 TAB 3 Refills Prov:JORGITO LIZ MD 07/28/17 Reported Medications Magnesium Oxide (MAGNESIUM OXIDE) 400 Mg Tablet, 400 MG PO QDAY 09/12/18 Ranitidine Hcl (ZANTAC) 150 Mg Tablet, 150 MG PO BID, TAB 10/31/17 Aspirin (ASPIRIN) 325 Mg Tablet, 325 MG PO QDAY, TAB 02/09/17 Hx Smoking: Yes Smoking Status: Heavy Tobacco Smoker Exposure to Second Hand Smoke?: No Hx Substance Use Disorder: No Hx Alcohol Use: No Constitutional Vital Sign - Last 24 Hours 09/27/18 09/27/18 09/27/18 09/27/18 19:04 19:04 19:05 19:19 Temp 98.7 Pulse ??? 94 93 Resp 18 B/P (MAP) 169/92 169/92 (117) Pulse Ox 87 O2 Delivery Nasal Cannula 09/27/18 09/27/18 09/27/18 09/27/18 19:30 19:34 19:45 19:49 Pulse 93 ??? Resp 10 B/P (MAP) 161/96 (117) ???/??? (1665) Pulse Ox 93 09/27/18 09/27/18 09/27/18 09/27/18 20:00 20:00 20:04 20:15 Pulse 88 Resp 17 B/P (MAP) 175/96 (122) 164/96 (118) Pulse Ox 93 O2 Flow Rate 2.0 09/27/18 09/27/18 09/27/18 09/27/18 20:19 20:30 20:34 20:45 Pulse 90 87 Resp 27 21 B/P (MAP) 172/99 (123) 179/95 (123) Pulse Ox 93 93 09/27/18 09/27/18 09/27/18 09/27/18 20:49 20:54 21:00 21:09 Pulse 85 87 88 Resp 28 25 27 B/P (MAP) 164/91 (115) Pulse Ox 93 91 90 09/27/18 09/27/18 09/27/18 09/27/18 21:15 21:24 21:31 21:39 Pulse ??? 92 Resp 24 B/P (MAP) 171/95 (120) 173/98 (123) Pulse Ox 92 09/27/18 09/27/18 09/27/18 09/27/18 21:45 21:54 22:00 22:09 Pulse 91 91 Resp 21 27 B/P (MAP) 191/107 (135) 175/101 (125) Pulse Ox 90 91 09/27/18 09/27/18 09/27/18 09/27/18 22:15 22:24 22:30 22:39 Pulse 90 85 Resp 24 42 B/P (MAP) 169/97 (121) 177/100 (125) Pulse Ox 92 91 09/27/18 09/27/18 09/27/18 09/27/18 22:45 22:50 23:00 23:05 Pulse 86 88 Resp 24 19 B/P (MAP) 164/94 (117) 151/98 (115) Pulse Ox 91 94 09/27/18 09/27/18 09/27/18 09/27/18 23:15 23:20 23:30 23:35 Pulse 83 88 Resp 22 14 B/P (MAP) 153/94 (113) 158/79 (105) Pulse Ox 91 94 09/27/18 09/27/18 09/28/18 09/28/18 23:45 23:50 00:00 00:05 Pulse 89 85 Resp 28 B/P (MAP) 167/98 (121) 190/115 (140) Pulse Ox 91 09/28/18 09/28/18 09/28/18 09/28/18 00:10 00:15 00:30 00:40 Pulse 87 85 Resp 30 26 B/P (MAP) 181/108 (132) 167/100 (122) Pulse Ox 97 94 09/28/18 09/28/18 09/28/18 09/28/18 00:45 00:55 01:00 01:06 Pulse 82 87 Resp 24 B/P (MAP) 175/100 (125) 144/75 (98) Pulse Ox 92 09/28/18 01:11 Pulse 83 Resp 23 Pulse Ox 90 Intake and Output 09/27/18 09/27/18 09/28/18 15:00 23:00 07:00 Output Total 600 ml Balance -600 ml Medical Decision Making Data Points Result Diagram: 09/27/18 1855 09/27/18 1855 Laboratory Hematology Test 09/27/18 00:00 09/27/18 00:01 09/27/18 00:05 09/27/18 18:55 Blood Gas Puncture Site Left radial Blood Gas Patient Temperature 36.6 DEGREES Arterial Blood pH 7.37 (7.35-7.45) Arterial Blood Partial Pressure CO2 41 mmHg (32-37) Arterial Blood Partial Pressure O2 111 mmHg (60-80) Arterial Blood HCO3 23 mmol/L (20-26) Arterial Blood Oxygen Saturation 98 % (92-100) Arterial Blood Base Excess -2.0 mmol/L Neto Test Nt avail Oxygen Liters/Minute 4 l Urine Color Straw Urine Clarity Clear Urine pH 6.0 pH (4.8-9.5) Urine Specific [place] 1.020 Urine Protein Negative mg/dL (NEGATIVE) Urine Glucose (UA) 150 mg/dL (NEGATIVE) Urine Ketones Negative mg/dL (NEGATIVE) Urine Blood Negative (NEGATIVE) Urine Nitrite Negative (NEGATIVE) Urine Bilirubin Negative (NEGATIVE) Urine Urobilinogen Negative mg/dL (0.2-1.9) Urine Leukocyte Esterase Negative (NEGATIVE) Urine RBC 1 /HPF (0-2/HPF) Urine WBC 1 /HPF (0-5/HPF) Urine Squamous Epithelial Cells None /LPF (NONE-FEW) Urine Bacteria Negative /HPF (NONE-FEW) Urine Mucus None /HPF (NONE-FEW) Urine Opiates Screen Positive Urine Barbiturates Screen Negative Ur Tricyclic Antidepressants Screen Negative Urine Phencyclidine Screen Negative Urine Amphetamines Screen Negative Urine Benzodiazepines Screen Negative Urine Cocaine Screen Negative Urine Cannabinoids Screen Negative Prothrombin Time 13.0 seconds (12.0-14.4) Prothromb Time International Ratio 0.98 Activated Partial Thromboplast Time 33 seconds (23-35) Red Blood Count 5.07 M/uL (4.00-5.60) Mean Corpuscular Volume 88.2 fL (80.0-96.0) Mean Corpuscular Hemoglobin 29.2 pg (26.0-33.0) Mean Corpuscular Hemoglobin Concent 33.1 g/dL (32.0-36.0) Red Cell Distribution Width 15.8 % (11.5-14.5) Mean Platelet Volume 9.2 fL (7.2-11.1) Neutrophils (%) (Auto) 82.9 % (39.4-72.5) Lymphocytes (%) (Auto) 8.7 % (17.6-49.6) Monocytes (%) (Auto) 5.7 % (4.1-12.4) Eosinophils (%) (Auto) 1.6 % (0.4-6.7) Basophils (%) (Auto) 1.1 % (0.3-1.4) Nucleated RBC Relative Count (auto) 0.0 /100WBC Neutrophils # (Auto) 12.7 K/uL (2.0-7.4) Lymphocytes # (Auto) 1.3 K/uL (1.3-3.6) Monocytes # (Auto) 0.9 K/uL (0.3-1.0) Eosinophils # (Auto) 0.2 K/uL (0.0-0.5) Basophils # (Auto) 0.2 K/uL (0.0-0.1) Nucleated RBC Absolute Count (auto) 0.00 K/uL Sodium Level 137 mmol/L (137-145) Potassium Level 4.1 mmol/L (3.5-5.0) Chloride Level 108 mmol/L (98-107) Carbon Dioxide Level 23 mmol/L (22-30) Blood Urea Nitrogen 19 mg/dl (9-21) Creatinine 0.80 mg/dl (0.66-1.25) Glomerular Filtration Rate Calc > 60.0 Random Glucose 258 mg/dl (75-110) Calcium Level 9.7 mg/dl (8.4-10.2) Total Bilirubin 0.5 mg/dl (0.2-1.3) Aspartate Amino Transf (AST/SGOT) 21 U/L (0-35) Alanine Aminotransferase (ALT/SGPT) 22 U/L (0-56) Alkaline Phosphatase 113 U/L (0-126) Troponin I < 0.012 ng/ml Total Protein 7.0 g/dl (6.3-8.2) Albumin 4.0 g/dl (3.5-5.0) Serum Alcohol < 10 mg/dl Test 09/28/18 00:05 Lactate 1.4 mmol/L (0.7-2.1) Chemistry Test 09/27/18 00:00 09/27/18 00:01 09/27/18 00:05 09/27/18 18:55 Blood Gas Puncture Site Left radial Blood Gas Patient Temperature 36.6 DEGREES Arterial Blood pH 7.37 (7.35-7.45) Arterial Blood Partial Pressure CO2 41 mmHg (32-37) Arterial Blood Partial Pressure O2 111 mmHg (60-80) Arterial Blood HCO3 23 mmol/L (20-26) Arterial Blood Oxygen Saturation 98 % (92-100) Arterial Blood Base Excess -2.0 mmol/L Neto Test Nt avail Oxygen Liters/Minute 4 l Urine Color Straw Urine Clarity Clear Urine pH 6.0 pH (4.8-9.5) Urine Specific [place] 1.020 Urine Protein Negative mg/dL (NEGATIVE) Urine Glucose (UA) 150 mg/dL (NEGATIVE) Urine Ketones Negative mg/dL (NEGATIVE) Urine Blood Negative (NEGATIVE) Urine Nitrite Negative (NEGATIVE) Urine Bilirubin Negative (NEGATIVE) Urine Urobilinogen Negative mg/dL (0.2-1.9) Urine Leukocyte Esterase Negative (NEGATIVE) Urine RBC 1 /HPF (0-2/HPF) Urine WBC 1 /HPF (0-5/HPF) Urine Squamous Epithelial Cells None /LPF (NONE-FEW) Urine Bacteria Negative /HPF (NONE-FEW) Urine Mucus None /HPF (NONE-FEW) Urine Opiates Screen Positive Urine Barbiturates Screen Negative Ur Tricyclic Antidepressants Screen Negative Urine Phencyclidine Screen Negative Urine Amphetamines Screen Negative Urine Benzodiazepines Screen Negative Urine Cocaine Screen Negative Urine Cannabinoids Screen Negative Prothrombin Time 13.0 seconds (12.0-14.4) Prothromb Time International Ratio 0.98 Activated Partial Thromboplast Time 33 seconds (23-35) White Blood Count 15.3 k/uL (4.5-11.0) Red Blood Count 5.07 M/uL (4.00-5.60) Hemoglobin 14.8 g/dL (14.0-18.0) Hematocrit 44.7 % (42.0-52.0) Mean Corpuscular Volume 88.2 fL (80.0-96.0) Mean Corpuscular Hemoglobin 29.2 pg (26.0-33.0) Mean Corpuscular Hemoglobin Concent 33.1 g/dL (32.0-36.0) Red Cell Distribution Width 15.8 % (11.5-14.5) Platelet Count 253 K/uL (150-450) Mean Platelet Volume 9.2 fL (7.2-11.1) Neutrophils (%) (Auto) 82.9 % (39.4-72.5) Lymphocytes (%) (Auto) 8.7 % (17.6-49.6) Monocytes (%) (Auto) 5.7 % (4.1-12.4) Eosinophils (%) (Auto) 1.6 % (0.4-6.7) Basophils (%) (Auto) 1.1 % (0.3-1.4) Nucleated RBC Relative Count (auto) 0.0 /100WBC Neutrophils # (Auto) 12.7 K/uL (2.0-7.4) Lymphocytes # (Auto) 1.3 K/uL (1.3-3.6) Monocytes # (Auto) 0.9 K/uL (0.3-1.0) Eosinophils # (Auto) 0.2 K/uL (0.0-0.5) Basophils # (Auto) 0.2 K/uL (0.0-0.1) Nucleated RBC Absolute Count (auto) 0.00 K/uL Glomerular Filtration Rate Calc > 60.0 Calcium Level 9.7 mg/dl (8.4-10.2) Total Bilirubin 0.5 mg/dl (0.2-1.3) Aspartate Amino Transf (AST/SGOT) 21 U/L (0-35) Alanine Aminotransferase (ALT/SGPT) 22 U/L (0-56) Alkaline Phosphatase 113 U/L (0-126) Troponin I < 0.012 ng/ml Total Protein 7.0 g/dl (6.3-8.2) Albumin 4.0 g/dl (3.5-5.0) Serum Alcohol < 10 mg/dl Test 09/28/18 00:05 Lactate 1.4 mmol/L (0.7-2.1) Coagulation Test 09/27/18 00:05 Prothrombin Time 13.0 seconds Prothromb Time International Ratio 0.98 Activated Partial Thromboplast Time 33 seconds Toxicology Test 09/27/18 00:01 09/27/18 18:55 Urine Opiates Screen Positive Urine Barbiturates Screen Negative Ur Tricyclic Antidepressants Screen Negative Urine Phencyclidine Screen Negative Urine Amphetamines Screen Negative Urine Benzodiazepines Screen Negative Urine Cocaine Screen Negative Urine Cannabinoids Screen Negative Serum Alcohol < 10 mg/dl Urinalysis Test 09/27/18 00:01 Urine Color Straw Urine Clarity Clear Urine pH 6.0 pH (4.8-9.5) Urine Specific [place] 1.020 Urine Protein Negative mg/dL (NEGATIVE) Urine Glucose (UA) 150 mg/dL (NEGATIVE) Urine Ketones Negative mg/dL (NEGATIVE) Urine Blood Negative (NEGATIVE) Urine Nitrite Negative (NEGATIVE) Urine Bilirubin Negative (NEGATIVE) Urine Urobilinogen Negative mg/dL (0.2-1.9) Urine Leukocyte Esterase Negative (NEGATIVE) Urine RBC 1 /HPF (0-2/HPF) Urine WBC 1 /HPF (0-5/HPF) Urine Squamous Epithelial Cells None /LPF (NONE-FEW) Urine Bacteria Negative /HPF (NONE-FEW) Urine Mucus None /HPF (NONE-FEW) EKG/Imaging EKG Interpretation 12 lead EKG: Rhythm: Normal sinus rhythm, rate 89 [place]: normal QRS: Low-voltage ST segments: normal Imaging EXAMINATION: CT HEAD WITHOUT CONTRAST COMPARISON: 09/11/2018 HISTORY: Weakness and tiredness for 3 days. Speech alteration. Altered mental status. PROCEDURE: Noncontrast CT from the vertex through the skull base. One of the following dose optimization techniques was utilized in the performance of this exam: Automated exposure control; adjustment of the mA and/or kV according to the patient's size; or use of an iterative reconstruction technique. Specific details can be referenced in the facility's radiology CT exam operational policy. FINDINGS: Brain volume: Mild global volume loss. Hemorrhage/extra-axial fluid: None. Mass effect/midline shift/edema: None. Ischemia: Mild chronic white matter change as before with no new region of navarrete- white differentiation loss. Ventricles and basal cisterns: Within normal limits. Posterior fossa: Negative. Vessels: Atherosclerosis. Calvarium, skull base, and scalp: Negative. Visualized sinuses and orbits: Within normal limits. IMPRESSION: 1. No intracranial hemorrhage or mass effect. 2. Mild atrophy and chronic white matter change with no CT findings of acute ischemia. Report Dictated By: Jacobo Barth MD at 09/27/2018 8:16 PM Examination: CHEST SINGLE AP Comparison: 09/18/2018 and earlier. History: altered mental status Findings: Lung aeration has improved in the interval with no definite focal consolidation identified. No pneumothorax, edema, or effusion. Cardiac and hilar contour size is within normal limits and intact. Sternotomy wires are intact. No acute osseous abnormality. IMPRESSION: No evidence of acute cardiopulmonary disease. Report Dictated By: Jacobo Barth MD at 09/27/2018 8:[address]A CHEST W & W/O CON HISTORY: hypoxia, weakness, confusion TECHNIQUE: CTA chest with intravenous contrast attention to pulmonary arteries. Sagittal, coronal and slab 3D MIP coronal reconstructed images were also created for further evaluation and interpretation. One of the following dose optimization techniques was utilized in the performance of this exam: Automated exposure control; adjustment of the mA and/or kV according to the patient's size; or use of an iterative reconstruction technique. Specific details can be referenced in the facility's radiology CT exam operational policy. CONTRAST: 75 mL Isovue-370. COMPARISON: None. FINDINGS: Heart/vessels: Satisfactory opacification of the pulmonary arteries without visualized pulmonary embolus. 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 Mild atherosclerosis within the thoracic aorta. Mediastinum: Thyroid is not definitively visualized and may be absent. Otherwise negative. Lymph nodes: Negative. Lungs/pleura: Subtle groundglass opacities within the right middle lobe. Additional subtle groundglass opacity within the right lower lobe which is partially obscured by atelectasis. This appears somewhat more solid and nodular than the other opacities within the right middle lobe measuring approximately 11 x 6 mm. There is heterogeneous attenuation throughout the lungs which is nonspecific, possibly related to heterogeneous perfusion and/or air trapping. Moderate atelectasis within the lung bases. Mild debris within the trachea and mainstem bronchi. Visualized upper abdomen: Negative. Bones/soft tissues: Negative. IMPRESSION: 1. Negative for pulmonary embolus. 2. Groundglass opacities within the right middle and right lower lobe, likely related to an infectious/inflammatory process. The opacity within the right lower lobe appears more nodular and solid within the right middle lobe opacities raising the possibility of a groundglass nodule. [address] is south mmended to evaluate for resolution. 3. Additional incidental/chronic findings, as above. Report Dictated By: Vadim Ordoñez MD at 09/27/2018 9:47 PM ED Course/Re-evaluation Clinical Indication for ER IV: Hydration, IV Access ED Course Initial evaluation was some confusion as noted. Also the weakness has not been able to walk. Labs obtained and white count is elevated. Because of his confusion, he was refusing to give a urine. He then said he would and then refused again. We'll status seems to be waxing and waning a little bit. CT of the head and chest x-ray were both negative. CT Yani Ezequiel of the chest was done which was negative for PE did show some groundglass changes in the right side. I discussed the case with our hospitalist, Dr. Jaimes. He came and evaluated the patient. We then went ahead and use some ketamine for sedation to place a Dumas catheter to get a urine sample as well as get blood cultures and blood gas. Lactate was also ordered. The patient is admitted for acute altered mental status, uncertain etiology. Decision to Disposition Date: Sep 27, 2018 Decision to Disposition Time: 22:49 Depart Departure Latest Vital Signs Vital Signs Date Time Temp Pulse Resp B/P (MAP) Pulse Ox O2 Delivery O2 Flow Rate FiO2 09/28/18 01:11 83 23 90 09/28/18 01:00 144/75 (98) 09/27/18 20:00 2.0 09/27/18 19:04 98.7 Nasal Cannula Impression: Primary Impression: Altered mental status, unspecified Condition: Condition Unchanged Disposition: Admitted from ER Referrals: WANG MOISE MD (PCP) Problem Qualifiers Primary Impression: Altered mental status, unspecified Altered mental status type: unspecified Qualified Codes: R41.82 - Altered mental status, unspecified JUSTIN MIDDLETON MD Sep 27, 2018 19:11
[2018-09-27 19:24] LABS: PLATELET COUNT, AUTOMATED 253 K/uL (150-450)
--- NOTE | 2018-09-27 20:26 | RADIOLOGY IMAGING REPORT ---
FACILITY: [facility] PATIENT NAME: Toribio Angel : 1950 MR: [id number] V: [id number] EXAM DATE: ORDERING PHYSICIAN: JUSTIN MIDDLETON TECHNOLOGIST: Location: [facility] - [place] Patient: Toribio Angel : 1950 Visit/Account:[id number] Date of Sevice: 09/27/2018 EXAMINATION: CT HEAD WITHOUT CONTRAST COMPARISON: 09/11/2018 HISTORY: Weakness and tiredness for 3 days. Speech alteration. Altered mental status. PROCEDURE: Noncontrast CT from the vertex through the skull base. One of the following dose optimizat ion techniques was utilized in the performance of this exam: Automated exposure control; adjustment o f the mA and/or kV according to the patient's size; or use of an iterative reconstruction technique. Specific details can be referenced in the facility's radiology CT exam operational policy. FINDINGS: Brain volume: Mild global volume loss. Hemorrhage/extra-axial fluid: None. Mass effect/midline shift/edema: None. Ischemia: Mild chronic white matter change as before with no new region of navarrete-white differentiation loss. Ventricles and basal cisterns: Within normal limits. Posterior fossa: Negative. Vessels: Atherosclerosis. Calvarium, skull base, and scalp: Negative. Visualized sinuses and orbits: Within normal limits. IMPRESSION: 1. No intracranial hemorrhage or mass effect. 2. Mild atrophy and chronic white matter change with no CT findings of acute ischemia. Report Dictated By: Jacobo Barth MD at 09/27/2018 8:16 PM Report E-Signed By: Jacobo Barth MD at 09/27/2018 8:23 PM WSN:[id number]
--- NOTE | 2018-09-27 20:29 | RADIOLOGY IMAGING REPORT ---
FACILITY: [facility] PATIENT NAME: Toribio Angel : 1950 MR: [id number] V: [id number] EXAM DATE: ORDERING PHYSICIAN: JUSTIN MIDDLETON TECHNOLOGIST: Location: [facility] [place] Patient: Toribio Angel : 1950 Visit/Account:[id number] Date of Sevice: 09/27/2018 Examination: CHEST SINGLE AP Comparison: 09/18/2018 and earlier. History: altered mental status Findings: Lung aeration has improved in the interval with no definite focal consolidation identified. No pneumothorax, edema, or effusion. Cardiac and hilar contour size is within normal limits and inta ct. Sternotomy wires are intact. No acute osseous abnormality. IMPRESSION: No evidence of acute cardiopulmonary disease. Report Dictated By: Jacobo Barth MD at 09/27/2018 8:23 PM Report E-Signed By: Jacobo Barth MD at 09/27/2018 8:24 PM WSN:[id number]
[2018-09-27] MEDS ORDERED: NS(*) 0.9% 50 ML BAG 50 ML ONE (21:09)
[2018-09-27] MEDS ORDERED: IOPAMIDOL 76% 150 ML INFUS BTL 150 ML ONE (21:09)
--- NOTE | 2018-09-27 21:56 | RADIOLOGY IMAGING REPORT ---
FACILITY: [facility] PATIENT NAME: Toribio Angel : 1950 MR: [id number] V: [id number] EXAM DATE: ORDERING PHYSICIAN: JUSTIN MIDDLETON TECHNOLOGIST: Location: [facility] Patient: Toribio Angel : 1950 Visit/Account:[id number] Date of Sevice: 09/27/2018 CT CTA CHEST W & W/O CON HISTORY: hypoxia, weakness, confusion TECHNIQUE: CTA chest with intravenous contrast attention to pulmonary arteries. Sagittal, coronal a nd slab 3D MIP coronal reconstructed images were also created for further evaluation and interpretati on. One of the following dose optimization techniques was utilized in the performance of this exam: Autom ated exposure control; adjustment of the mA and/or kV according to the patient's size; or use of an i terative reconstruction technique. Specific details can be referenced in the facility's radiology CT exam operational policy. CONTRAST: 75 mL Isovue-370. COMPARISON: None. FINDINGS: Heart/vessels: Satisfactory opacification of the pulmonary arteries without visualized pulmonary emb olus. 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 Mild atherosclerosis within the thoracic aorta. Mediastinum: Thyroid is not definitively visualized and may be absent. Otherwise negative. Lymph nodes: Negative. Lungs/pleura: Subtle groundglass opacities within the right middle lobe. Additional subtle groundgla ss opacity within the right lower lobe which is partially obscured by atelectasis. This appears somew hat more solid and nodular than the other opacities within the right middle lobe measuring approximat deangelo 11 x 6 mm. There is heterogeneous attenuation throughout the lungs which is nonspecific, possibly related to heterogeneous perfusion and/or air trapping. Moderate atelectasis within the lung bases. Mild debris within the trachea and mainstem bronchi. Visualized upper abdomen: Negative. Bones/soft tissues: Negative. IMPRESSION: 1. Negative for pulmonary embolus. 2. Groundglass opacities within the right middle and right lower lobe, likely related to an infectiou s/inflammatory process. The opacity within the right lower lobe appears more nodular and solid within the right middle lobe opacities raising the possibility of a groundglass nodule. 3 month follow up C T is recommended to evaluate for resolution. 3. Additional incidental/chronic findings, as above. Report Dictated By: Vadim Ordoñez MD at 09/27/2018 9:47 PM Report E-Signed By: Vadim Ordoñez MD at 09/27/2018 9:52 PM WSN:[email or web address]
--- NOTE | 2018-09-27 22:01 | EKG ---
FACILITY: [facility] PATIENT NAME: KAREN SOLORIO : [id number] MR: [id number] V: [id number] EXAM DATE: ORDERING PHYSICIAN: JUSTIN MIDDLETON TECHNOLOGIST: DONALD Meier Reason : Blood Pressure : / mmHG Vent. Rate : 089 BPM Atrial Rate : 089 BPM P-R Int : 208 ms QRS Dur : 086 ms QT Int : 370 ms P-R-T Axes : 049 076 067 degrees QTc Int : 450 ms Normal sinus rhythm with 1st degree AV block Low voltage QRS q waves consistent with old sep NC Borderline ECG When compared with ECG of 11-SEP-2018 11:22, Relatively unchanged Confirmed by JUDY KEITH ([id number]) on 09/28/2018 12:05:20 AM Referred By: Confirmed By:JUDY KEITH
[2018-09-27] MEDS ORDERED: KETAMINE HCL 500 MG/5 ML VIAL IVP ONE (23:20)
[2018-09-28 00:28] LABS: INR 0.98
[2018-09-28] MEDS ORDERED: cloNIDine HCL 0.1 MG TAB PO PRN (00:55)
--- NOTE | 2018-09-28 01:11 | History & Physical ---
History of Present Illness History of Present Illness 67yo male with a h/o CVA, current smoking and recent pneumonia who was brought to the ER for progressive weakness and confusion. His provided most of the history. He was discharged from the hospital on 09/21 (a week ago) for a multifocal pneumonia. He finished Omnicef about 4 days ago and Azithromycin 5 d ays ago. He was doing well at home until about 2 days ago. He started saying bizarre things to his and was sleeping much more. Over the last 24 hours, he has been much more confused. His skin felt warm to his . He also had more ARREDONDO, today. There has been no dysuria, vomiting, nausea, diarrhea, SOB, skin sores. He has been frequently incontinent of bowel and bladder for about a month. It was worse today. He continues to smoke 1/2 to 3/4 ppd. No alcohol use. History Problems: (1) History of coronary artery disease Status: Chronic (2) TIA (transient ischemic attack) Status: Chronic (3) Hyperlipidemia Status: Chronic (4) Hypothyroidism Status: Chronic (5) Hypertension Status: Chronic (6) Type 2 diabetes mellitus Status: Chronic (7) S/P CABG (coronary artery bypass graft) Status: Chronic (8) Hepatitis C Home Meds Active Scripts Cefdinir 300 Mg Cap (OMNICEF 300 MG CAP (OR EQUIV)) 300 Mg Cap, 300 MG PO BID, #6 CAP Prov:MARIELA ARCHULETA DO 09/21/18 Azithromycin 250 Mg Tab (AZITHROMYCIN 250 MG TAB) 250 Mg Tablet, 1 TAB PO QDAY, #2 TAB Prov:MARIELA ARCHULETA DO 09/21/18 Losartan Potassium (LOSARTAN POTASSIUM) 50 Mg Tablet, 50 MG PO QDAY, #90 TAB 3 Refills Prov:WANG MOISE MD 09/12/18 Rosuvastatin Calcium (CRESTOR) 5 Mg Tablet, 5 MG PO QDAY, #90 TAB 3 Refills Prov:WANG MOISE MD 08/17/18 Insulin Detemir (LEVEMIR) 100 Unit/Ml Injs, 12 UNIT SUBQ BID for 90 Days, #5 SYR 9 Refills Add 2 units every 3 days until fasting blood sugars 120 or less maximum dose is 40 units per 24 hours Prov:WANG MOSIE MD 08/17/18 Levothyroxine Sodium (LEVOTHYROXINE SODIUM) 0.112 Mg Tab, 0.112 MG PO QDAY, #90 TAB 3 Refills Prov:WANG MOISE MD 08/17/18 Pregabalin (LYRICA) 100 Mg Capsule, 100 MG PO BID, #180 CAPSULE 3 Refills Prov:WANG MOISE MD 08/17/18 Force, Insulin Disposable (Bd Ultra-Fine Pen Needle) 1 Each Dis.needle, BOX MC QDAY, #1 3 Refills use to administer insulin twice daily. Prov:WANG MOISE MD 06/19/18 Clopidogrel Bisulfate (CLOPIDOGREL) 75 Mg Tablet, 1 TAB PO QDAY, #90 TAB 3 Refills Prov:WANG MOISE MD 05/18/18 Metformin Hcl (METFORMIN HCL) 1,000 Mg Tablet, 1 TAB PO BID, #180 TAB 3 Refills Prov:JORGITO LIZ MD 07/28/17 Reported Medications Magnesium Oxide (MAGNESIUM OXIDE) 400 Mg Tablet, 400 MG PO QDAY 09/12/18 Ranitidine Hcl (ZANTAC) 150 Mg Tablet, 150 MG PO BID, TAB 10/31/17 Aspirin (ASPIRIN) 325 Mg Tablet, 325 MG PO QDAY, TAB 02/09/17 Allergies: Coded Allergies: No Known Drug Allergies (Verified , 09/27/18) Patient History: FH: CAD (coronary artery disease) MOTHER, , Age:60 FH: CVA (cerebrovascular accident) MOTHER, , Age:60 FH: CVA (cerebrovascular accident) MOTHER, , Age:60 FH: CVA (cerebrovascular accident) MOTHER, , Age:60 FH: type 2 diabetes mellitus MOTHER, , Age:60 Hx Smoking: Yes Smoking Status: Heavy Tobacco Smoker Exposure to Second Hand Smoke?: No Caffeine Intake: Coffee, Soda Caffeine/Cups Per Day: 5-10 CUPS COFFEE, 1 SODA PER DAY Hx Alcohol Use: No Hx Substance Use Disorder: No Social Drug Use: Never Review of Systems All Systems Reviewed/Normal: Yes, Except as Noted Exam Vital Signs Vital Signs Date Time Temp Pulse Resp B/P (MAP) Pulse Ox O2 Delivery O2 Flow Rate FiO2 09/28/18 00:05 85 09/28/18 00:00 190/115 (140) 09/27/18 23:50 28 91 09/27/18 20:00 2.0 2/6/19 19:04 98.7 Nasal Cannula General Appearance: Other (Sleepy, but awakens easily. Breathing comfortably.) Neuro: Other (Doesn't know month/year, or why he is in the hospital. Knows where he is. 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 Dorsiflexion strong on the left but not on the right. No CN 2-12 deficits grossly.) ENT: Moist Mucous Membranes Cardiovascular: Regular Rate and Rhythm Respiratory: Clear to Auscultation GI: Abd Soft and Non-Tender Extremities: No Edema Integumentary: No Jaundice, No Cyanosis; Other (scab superior to right medial maleolus, small and no surrounding erythema) Medical Decision Making Data Points Result Diagram: 09/27/18185409/27/181854 Item Value Date Time Arterial Blood pH 7.37 09/27/18 Arterial Blood Partial Pressure CO2 41 mmHg H 09/27/18 Arterial Blood Partial Pressure O2 111 mmHg *H 09/27/18 Arterial Blood HCO3 23 mmol/L 09/27/18 Arterial Blood Oxygen Saturation 98 % 09/27/18 Arterial Blood Base Excess -2.0 mmol/L 09/27/18 Prothromb Time International Ratio 0.98 09/27/184 Lactate 1.4 mmol/L 09/28/184 Urine Opiates Screen Positive 09/27/18 0001 Item Value Date Time Troponin I < 0.012 ng/ml 09/27/181854 Calcium Level 9.7 mg/dl 09/27/181854 Total Bilirubin 0.5 mg/dl 09/27/181854 Aspartate Amino Transf (AST/SGOT) 21 U/L 09/27/181854 Alanine Aminotransferase (ALT/SGPT) 22 U/L 09/27/181854 Alkaline Phosphatase 113 U/L 09/27/181854 White Blood Count 15.3 k/uL H 09/27/181854 Neutrophils (%) (Auto) 82.9 % H 09/27/181854 Lymphocytes (%) (Auto) 8.7 % L 09/27/181854 Monocytes (%) (Auto) 5.7 % 09/27/181854 Eosinophils (%) (Auto) 1.6 % 09/27/181854 Basophils (%) (Auto) 1.1 % 09/27/181854 Nucleated RBC Relative Count (auto) 0.0 /100WBC 09/27/181854 Serum Alcohol < 10 mg/dl 09/27/181854 Urine RBC 1 /HPF 09/27/182018 Urine WBC 1 /HPF 09/27/182018 Urine Squamous Epithelial Cells None /LPF 09/27/182018 Urine Bacteria Negative /HPF 09/27/182018 Urine Leukocyte Esterase Negative 09/27/182018 EKG / Imaging EKG Interpretation Vent. Rate : 089 BPM Atrial Rate : 089 BPM P-R Int : 208 ms QRS Dur : 086 ms QT Int : 370 ms P-R-T Axes : 049 076 067 degrees QTc Int : 450 ms Normal sinus rhythm with 1st degree AV block Low voltage QRS q waves consistent with old sep [place] Borderline ECG When compared with ECG of 11-SEP-2018 11:22, Relatively unchanged Imaging Chest CTA - 1. Negative for pulmonary embolus. 2. Groundglass opacities within the right middle and right lower lobe, likely related to an infectious/inflammatory process. The opacity within the right lower lobe appears more nodular and solid within the right middle lobe opacities raising the possibility of a groundglass nodule. [address] is recommended to evaluate for resolution. 3. Additional incidental/chronic findings, as above. CXR - No evidence of acute cardiopulmonary disease. Head CT - 1. No intracranial hemorrhage or mass effect. 2. Mild atrophy and chronic white matter change with no CT findings of acute ischemia. Assessment and Plan Problems: (1) Altered mental status, unspecified Status: Acute Assessment & Plan: He presented with 2 days of increased somnolence and odd behavior and 24 hours of worsening confusion and ARREDONDO. He was found to be hypoxic, have an elevated WBC and ground glass opacities on CT of the chest. UA is wnl. Head CT has no acute findings. PCO2 only mildly elevated with a normal pH. He does have opiates on his drug screen, which he is not on nor received via prescription. Will decrease Lyrica dose by half and treat a pneumonia. Will get an MRI of the brain to rule out acute infarct. (2) Weakness Status: Acute Assessment & Plan: See above. OT/PT to evaluate. (3) Bacterial pneumonia Status: Acute Assessment & Plan: He was discharge a week before admission for pneumonia. He finished azithromycin about 5 days prior to admission and Omnicef 4 days prior to admission. CXR is improved, but CTA of the chest shows some right sided ground glass infiltrates and possible nodule (that will require CT follow-up). WBC is elevated and he is hypoxic. Will start Primaxin and Levofloxacin for concern of a resistant pneumonia. Blood cultures pending. (4) Incontinence Status: Chronic Assessment & Plan: For the last month the patient has had fairly frequent bowel and bladder incontinence. Worse over the last couple of days. Checking a PVR. Might need to consider a lumbar/sacral spine CT to evaluate for nerve compression. (5) CVA (cerebral vascular accident) Status: Chronic Assessment & Plan: Affected his right side. Continue chronic Crestor, ASA and Plavix. (6) Type 2 diabetes mellitus Status: Chronic Assessment & Plan: Chronically on metformin and Levemir. Metformin to be held and Levemir to be reduced in dose. SSI level 2 to cover. (7) Hypertension Status: Chronic Assessment & Plan: Continue chronic losartan with parameters and clonidine prn. Copies to: WANG MOISE MD ; Venous Thromboembolism Antithrombotics Is Pt On Any Antithrombotics?: No Exam Sepsis Risk: No Definite Risk Problem Qualifiers (1) Altered mental status, unspecified: Altered mental status type: unspecified Qualified Codes: R41.82 - Altered mental status, unspecified JUDY KEITH MD Sep 28, 2018 01:11
[2018-09-28 01:41] VITALS: BP 184/97
[2018-09-28] MEDS: LEVOFLOXACIN/D5W 750 MG/150 ML 150 ML IVPB SCH (02:13)
[2018-09-28] MEDS: LEVOTHYROXINE SOD 0.112 MG TAB PO SCH (06:15)
[2018-09-28] MEDS: IMIPENEM/CILASTA(*) 500MG VIAL 500 MG in NS(*) 0.9% 100 ML BAG 100 ML IVPB SCH ×4 (06:15→23:39)
[2018-09-28 06:58] LABS: PLATELET COUNT, AUTOMATED 197 K/uL (150-450)
[2018-09-28 07:54] VITALS: BP 156/82
[2018-09-28] MEDS: INSULIN HUM LISPRO 100 UN/ML 3 ML VIAL SUBQ PRN ×3 (08:13→21:30)
[2018-09-28] MEDS ORDERED: ENOXAPARIN 40 MG/0.4ML SYR SC SCH (09:00)
[2018-09-28] MEDS: ASPIRIN 325 MG ENTERIC COATED PO SCH (09:48)
[2018-09-28] MEDS: CLOPIDOGREL BISULFATE 75MG TAB PO SCH (09:48)
[2018-09-28] MEDS: RANITIDINE HCL 150 MG TAB PO SCH ×2 (09:48→21:30)
[2018-09-28] MEDS: LOSARTAN POTASSIUM 50 MG TAB PO SCH (09:49)
[2018-09-28] MEDS: PREGABALIN 50 MG CAPSULE PO SCH ×2 (09:49→21:31)
[2018-09-28] MEDS: INSULIN DETEMIR 100 UN/ML VIAL SUBQ SCH ×2 (09:50→21:33)
[2018-09-28 11:03] VITALS: BP 170/92
--- NOTE | 2018-09-28 12:38 | RADIOLOGY IMAGING REPORT ---
FACILITY: [facility] PATIENT NAME: Toribio Angel : 1950 MR: [id number] V: [id number] EXAM DATE: ORDERING PHYSICIAN: JUDY KEITH TECHNOLOG[place] [facility] [place]ibio [place] : 1950 Visit/Account:[id number] Date of Sevice: 09/28/2018 EXAMINATION: MRI Brain without intravenous contrast HISTORY: Confusion. Weakness. Incontinence. COMPARISON: Noncontrast head CT dated 09/27/2018. TECHNIQUE: Multi-planar, multi-sequence brain MRI was performed without IV contrast administration. FINDINGS: Brain volume: Mild generalized volume loss. Sagittal midline structures: Negative. Ventricles: Negative. Acute ischemic changes: Multifocal restricted diffusion and FLAIR hyperintensity in the bilateral ce rebellar white matter, left posterior basal ganglia, body of the corpus callosum, periventricular whi te matter, and bilateral frontal deep white matter. Some of these lesions have a ring shape. Hemorrhage: None. Masses / edema: None. Dominguez-white: Small chronic infarction in the right cerebellar hemisphere. White matter: Moderate patchy FLAIR hyperintensity in the periventricular white matter, deep white m atter, and eliel. Vessels: Negative. Extra-axial: Negative. Calvarium / scalp: Negative. Skull base: Negative. Visualized sinuses / orbits: Rightward nasal septal deviation. Mild mucosal thickening in the ethmoi d air cells. Visualized upper neck: Negative. IMPRESSION: Multifocal restricted diffusion and FLAIR hyperintensity in the bilateral cerebellar whit e matter, left posterior basal ganglia, body of the corpus callosum, periventricular white matter, an d bilateral frontal deep white matter. Some of these lesions have a ring shape. The differential incl udes bland and septic emboli, atypical infection, demyelinating disease, and metastasis. Results were called to Ashleigh Frank at 09/28/2018 12:23 PM. Report Dictated By: Mumtaz Sood MD at 09/28/2018 12:16 PM Report E-Signed By: Mumtaz Sood MD at 09/28/2018 12:35 PM WSN:[email or web address]
--- NOTE | 2018-09-28 13:15 | Hospitalist Progress Note ---
Subjective Progress Notes Subjective He is somewhat somnolent, but does awaken and answer questions/follow simple commands. Physical Exam Vital Signs Date Time Temp Pulse Resp B/P (MAP) Pulse Ox O2 Delivery O2 Flow Rate FiO2 09/28/18 11:50 72 09/28/18 11:03 16 170/92 (118) 96 Nasal Cannula 2.0 09/28/18 07:54 98.4 Intake and Output 09/28/18 07:00 Output Total 1400 ml Balance -1400 ml Output Urine Total 1400 ml # Voids 1 General Appearance: Other (somewhat somnolent, but awakens and follows simple commands) Neuro: Other (right hemiparesis essentially unchanged) ENT: Oropharynx Clear Neck: No Masses Cardiovascular: Regular Rate and Rhythm Respiratory: Other (right basilar rales) Chest: No Tenderness GI: Soft and Non-Tender Extremities: Warm, Perfused Psych: Alert & Oriented X3 (oriented to person and partially to place, but not time) Result Diagram: 09/28/1861809/28/18618 Assessment and Plan Problems: (1) Altered mental status, unspecified Status: Acute Assessment & Plan: He presented with 2 days of increased somnolence, odd behavior/worsening confusion and dyspnea. He was found to be hypoxic with an elevated WBC and ground glass opacities on CT of the chest. UA is unremarkable. Head CT has no acute findings. PCO2 only mildly elevated with a normal pH. He does have opiates on his drug screen, which he is not on nor received via prescription. It does look like he has a pneumonia and he was placed on IV Primaxin and Levaquin. We did decrease Lyrica dose by half as well. He is scheduled for an MRI of the brain to evaluate for an acute infarct. (2) Weakness Status: Acute Assessment & Plan: See above. OT/PT to evaluate. (3) Bacterial pneumonia Status: Acute Assessment & Plan: He was discharged a week before admission for pneumonia. He finished azithromycin about 5 days prior to admission and Omnicef 4 days prior to admission. CXR is improved, but CTA of the chest shows some right-sided ground glass infiltrates and possible nodule (that will require CT follow-up). WBC was elevated and he was hypoxic. We started Primaxin and Levofloxacin for concern of a resistant pneumonia. Blood cultures pending. (4) Incontinence Status: Chronic Assessment & Plan: For the last month the patient has had fairly frequent bowel and bladder incontinence. Worse over the last couple of days. May be related to acute illness. (5) CVA (cerebral vascular accident) Status: Chronic Assessment & Plan: Affected his right side with chronic hemiparesis. Continue chronic Crestor, ASA and Plavix. (6) Type 2 diabetes mellitus Status: Chronic Assessment & Plan: Chronically on metformin and Levemir. Metformin being held and Levemir is at reduced in dose. SSI level 2 to cover. (7) Hypertension Status: Chronic Assessment & Plan: Continue chronic losartan with parameters and clonidine prn. Exam Sepsis Risk: No Definite Risk Problem Qualifiers (1) Altered mental status, unspecified: Altered mental status type: unspecified Qualified Codes: R41.82 - Altered mental status, unspecified EDIN RODRIGUEZ MD Sep 28, 2018 13:15
--- NOTE | 2018-09-28 13:25 | NUR ---
Physical Therapy Impression PT consulted with Dr. Lior Frank regarding MRI results. Hospitalist recommends holding off on mobility evaluation today as further medical testing will be completed. PT eval on hold until medically appropriate. Physical Therapy Goals Patient's Goals
[2018-09-28 14:40] VITALS: BMI 23.0
[2018-09-28 14:52] VITALS: BP 145/76
[2018-09-28] MEDS: NS(*) 0.9% 1000 ML BAG 1,000 ML IV PRN (14:52)
--- NOTE | 2018-09-28 15:14 | RADIOLOGY IMAGING REPORT ---
FACILITY: [facility] PATIENT NAME: Toribio Angel : 1950 MR: [id number] V: [id number] EXAM DATE: ORDERING PHYSICIAN: EDIN RODRIGUEZ TECHNOLOGIST: Location: [facility] Patient: Toribio Angel : 1950 Visit/Account:[id number] Date of Sevice: 09/28/2018 CAROTID HISTORY: CVA four years ago COMPARISON: None. FINDINGS: Grayscale, duplex and color Doppler interrogation of the extracranial carotid and vertebral arteries was performed bilateral. On the right, peak systolic velocities within the common and internal carotid arteries are 53 and 81 cm/sec respectively. There is a small to moderate amount of plaque right carotid bulb extending into the proximal right internal and external carotid arteries. Of note there is an elevated peak systol ic velocity in the right external carotid artery of 387 cm/s. Antegrade flow within the common, inte rnal and external carotid arteries as well as vertebral artery. ICA/CCA ratio 1.5. On the left, peak systolic velocities within the common and internal carotid arteries are 156 and 80 cm/sec respectively. A moderate amount of plaque left carotid bulb extending into the left internal and external carotid arteries. Antegrade flow within the common, internal and external carotid arter ies as well as vertebral artery. ICA/CCA ratio 0.5. IMPRESSION: Moderate amount of plaque at the carotid bulbs extending into the proximal internal and external moore tid arteries although no hemodynamically significant lesions identified in the ICAs. Incidentally noted is a markedly elevated peak systolic velocity in the right ECA 387 cm/s Velocity criteria are extrapolated from diameter data as defined by the Society of Radiologists in Ul trasound Consensus Conference Radiology 2003; 229;340-346 Report Dictated By: Annel Castillo MD at 09/28/2018 3:07 PM Report E-Signed By: Annel Castillo MD at 09/28/2018 3:10 PM WSN:[email or web address]
--- NOTE | 2018-09-28 15:51 | NUR ---
Occupational Therapy Impression Initial OT eval order received. Hospitalist recommends holding mobility evaluation due to results of MRI and further testing to be completed. Will follow and evaluate as appropriate. Occupational Therapy Goals Patient's Goal
[2018-09-28 19:09] VITALS: BP 169/92
[2018-09-28] MEDS: ENOXAPARIN 100 MG/ML SYR SC SCH (21:31)
[2018-09-28 23:34] VITALS: BP 173/95
[2018-09-29] MEDS: LEVOFLOXACIN/D5W 750 MG/150 ML 150 ML IVPB SCH (02:06)
[2018-09-29] MEDS: NS(*) 0.9% 1000 ML BAG 1,000 ML IV PRN (04:20)
[2018-09-29] MEDS: LEVOTHYROXINE SOD 0.112 MG TAB PO SCH (05:43)
[2018-09-29] MEDS: IMIPENEM/CILASTA(*) 500MG VIAL 500 MG in NS(*) 0.9% 100 ML BAG 100 ML IVPB SCH (05:45)
[2018-09-29 05:46] VITALS: BP 150/80
[2018-09-29 06:04] LABS: PLATELET COUNT, AUTOMATED 181 K/uL (150-450)
[2018-09-29 07:10] VITALS: BP 172/98
[2018-09-29] MEDS: INSULIN HUM LISPRO 100 UN/ML 3 ML VIAL SUBQ PRN ×2 (08:11→12:03)
--- NOTE | 2018-09-29 09:06 | Hospitalist Progress Note ---
Subjective Progress Notes Subjective This patient was admitted for embolic stroke. He had no acute changes overnight. Patient Complains of: Cardiovascular: No: Chest Pain Respiratory: No: Shortness of Breath Physical Exam Vital Signs Date Time Temp Pulse Resp B/P (MAP) Pulse Ox O2 Delivery O2 Flow Rate FiO2 09/29/18 07:10 98.2 72 22 172/98 (122) 89 Room Air 09/28/18 23:34 2.5 Intake and Output 09/29/18 07:00 Intake Total 2541 ml Output Total 3000 ml Balance -459 ml Intake Oral 50 ml IV Total 2491 ml Output Urine Total 3000 ml # Bowel Movements 1 Neuro: Other (Right hemiparesis) Cardiovascular: Regular Rate and Rhythm Respiratory: Clear to Auscultation Result Diagram: 09/29/1853709/29/18537 Assessment and Plan Problems: (1) Embolic stroke Assessment & Plan: His MRI revealed chronic and acute lesions consistent with embolic stroke. He is on chronic treatment with aspirin and Plavix. He was started on Lovenox last night and warfarin was added this morning. Daily INR monitoring has been ordered. He has no documented history of atrial fibrillat ion. An echocardiogram report is pending. (2) Weakness Status: Acute Assessment & Plan: OT/PT to evaluate. (3) Bacterial pneumonia Status: Acute Assessment & Plan: He was discharged a week before admission for pneumonia. He finished azithromycin about 5 days prior to admission and Omnicef 4 days prior to admission. His chest CT showed a right sided infiltrate, but suspect this is residual from his previous pneumonia. He denies cough or shortness of breath. Antibiotics have been discontinued. (4) Incontinence Status: Chronic Assessment & Plan: For the last month the patient has had fairly frequent bowel and bladder incontinence. Worse over the last couple of days. May be related to acute illness. (5) CVA (cerebral vascular accident) Status: Chronic Assessment & Plan: He does have a previous history of stroke. (6) Type 2 diabetes mellitus Status: Chronic Assessment & Plan: Chronically on metformin and Levemir. Metformin being held and Levemir is at reduced in dose. SSI level 2 to cover. (7) Hypertension Status: Chronic Assessment & Plan: He is on chronic treatment with losartan. Exam Sepsis Risk: No Definite Risk MARIELA ARCHULETA DO Sep 29, 2018 09:06
[2018-09-29] MEDS: ENOXAPARIN 100 MG/ML SYR SC SCH ×2 (10:12→21:06)
[2018-09-29] MEDS: LOSARTAN POTASSIUM 50 MG TAB PO SCH (10:12)
[2018-09-29] MEDS: CLOPIDOGREL BISULFATE 75MG TAB PO SCH (10:12)
[2018-09-29] MEDS: INSULIN DETEMIR 100 U/ML 3 ML PEN SUBQ SCH ×2 (10:12→21:06)
[2018-09-29] MEDS: PREGABALIN 50 MG CAPSULE PO SCH ×2 (10:13→21:05)
[2018-09-29] MEDS: ASPIRIN 325 MG ENTERIC COATED PO SCH (10:13)
[2018-09-29] MEDS: RANITIDINE HCL 150 MG TAB PO SCH ×2 (10:13→21:05)
[2018-09-29 11:35] VITALS: BP 162/96
--- NOTE | 2018-09-29 11:48 | Antimicrobial Stewardship ---
Antimicrobial Stewardship Comment 67 yo M with a history of CVA presented to the ED with altered mental status and more significant R sided weakness. He was recently admitted for a pneumonia, but recently completed treatment with azithromycin and cefdinir. CTA showed pneumonia, pt was started on broad spectrum antibiotics with imipenem and levofloxacin. Tmax - afebrile WBC on admit were 15.3, now wnl Antibiotics stopped, recently treated for pneumonia at home, and he has no breathing complaints. Imaging likely showing previously diagnosed pneumonia, not a new infiltrate and the patient received adequate treatment. Plan to stop antibiotics and continue treatment for stroke. All antibiotics d/c'd on 09/29/18. Will watch closely. Irasema Reyes, PharmD, OP IRASEMA REYES Sep 29, 2018 11:47
--- NOTE | 2018-09-29 12:48 | NUR ---
Occupational Therapy Impression Initial OT/PT evaluation completed. Total Ax2 supine to sit and sit to supine. Max Ax2 sit<>stand with RW. Pt unable to safely tolerate side steps or mobility this date. Rec long-term rehab prior to discharge home. Occupational Therapy Goals Patient's Goal
--- NOTE | 2018-09-29 13:18 | NUR ---
Physical Therapy Impression PT eval complete. Strongly recommend additional rehab prior to returning home. Recommend acute rehab. short-term, or long-term rehab depending on Pt and Pt's plans for ultimate discharge destination. Physical Therapy Goals 1. SBA bed mobility. 2. SBA stand pivot transfers. Patient's Goals
[2018-09-29] MEDS: WARFARIN SOD 5 MG TAB PO SCH (13:33)
[2018-09-29 15:00] VITALS: BP 155/91
--- NOTE | 2018-09-29 15:53 | NUR ---
SPEECH THERAPY EVALUATION Eval complete. See full report for details. Severe cognitive deficits noted. Specific d/c recommendations pending progress. The pt is unsafe for discharge home at this time, and will benefit from further rehabilitation. Short or senior living subacute rehab will likely be appropriate.
--- NOTE | 2018-09-29 15:58 | SPEECH INITIAL EVALUATION ---
SPEECH THERAPY EVALUATION REPORT Cognitive Linguistic Assessment Patient Name: Toribio Angel Date of Evaluation: 09/29/18 Patient : 46 Clinician: Callie Rich M.S., CCC-PRODUCTION CELL LEADER Treatment Dx: severe cognitive linguistic deficits BACKGROUND The patient is a 67-year-old male admitted to [facility] on 09/27/18 with progressive weakness and confusion. He was recently discharged from the hospital on 09/21 for multifocal pneumonia. Following discharge, spouse reports increasing confusion after about 5 days at home with bizarre statements and increased sleeping throughout the day. After admission on 09/27, an MRI was completed with results significant for chronic and acute lesions consistent with an embolic stroke: hyperintensities noted in the bilateral cerebellar white matter, left posterior basal ganglia, body of the corpus callosum, periventricular white matter, and bilateral frontal deep white matter. ST consult was requested to analyze pts cognitive linguistic status, and develop appropriate recommendations for safe and successful discharge from hospital environment. Primary diagnosis: embolic stroke PMHx: prior CVA, DM 2, HTN, pneumonia Complaint of pain: no ASSESSMENT AND INTERVENTIONS The pt participated in a cognitive linguistic assessment at the bedside using the [place] Cognitive Assessment (MoCA) version 7.3 paired with informal evaluation procedures. Pt achieved a score of 7/30 (26/30=WNL), with severe, widespread deficits noted in the areas of temporal orientation, focused attention, sustained attention, divided attention, immediate memory, short-term memory, working memory, visuospatial skills, executive functioning, thought organization, and mental abstraction. Relative areas of strength noted in environmental orientation, situational orientation, and item recognition. The pt was highly perseverative throughout encounter with difficulty transitioning between activities. He was also easily distracted in the presence of competing environmental stimuli. Foundational deficits in attention are negatively impacting the pts capacity to attend to new information for working and short-term memory. Deficits in short-term memory and attention likely to impede safe decision making and safe interaction within immediate environment. The pt was also tangential throughout encounter with nonspecific responses to open ended questions. The pt accurately described purpose for hospitalization, but became fixated on stroke diagnosis and struggled to shift between topics in conversation. Expressive and receptive language appear largely intact, with deficits more secluded to cognitive domains. At this time, the pt is functioning significantly below baseline. He would benefit from further rehab prior to discharge, with destination recommendations pending progress. Short or long-term subacute rehab will likely be appropriate. RECOMMENDATIONS Acute ST 3x/wk Specific d/c recommendations pending progress. The pt is unsafe for discharge home at this time, and will benefit from further rehabilitation. REHAB PROGNOSIS: Good. Strong spousal support. High PLOF ST POC 1. Pt will recall 2/2 items embedded within a functional activity when provided with mod verbal cues and access to external visual aides to compensate for short-term memory deficits. 2. Pt will sustain attention during completion of functional activities for 2 minute intervals when provided with mod cues to minimize tangential insertions and promote participation in purposeful activities 3. Pt will alternate attention between two functional activities with mod cues to reduce perseverations and promote participation in activities of daily living. Thank you for this referral. Please call [phone] Callie Rich M.S., CCC-PRODUCTION CELL LEADER [*] RYDER
[2018-09-29 19:32] VITALS: BP 155/96
[2018-09-29] MEDS: NS(*) 0.9% 1000 ML BAG 1,000 ML IV SCH (21:05)
[2018-09-30] MEDS: LEVOTHYROXINE SOD 0.112 MG TAB PO SCH (05:46)
[2018-09-30] MEDS: NS(*) 0.9% 1000 ML BAG 1,000 ML IV SCH (05:46)
[2018-09-30 07:04] VITALS: BP 176/100
[2018-09-30] MEDS: PREGABALIN 50 MG CAPSULE PO SCH ×2 (08:39→20:27)
[2018-09-30] MEDS: ASPIRIN 325 MG ENTERIC COATED PO SCH (08:39)
[2018-09-30] MEDS: RANITIDINE HCL 150 MG TAB PO SCH ×2 (08:39→20:27)
[2018-09-30] MEDS: CLOPIDOGREL BISULFATE 75MG TAB PO SCH (08:39)
[2018-09-30] MEDS: LOSARTAN POTASSIUM 50 MG TAB PO SCH (08:40)
[2018-09-30] MEDS: ENOXAPARIN 100 MG/ML SYR SC SCH ×2 (08:40→20:27)
[2018-09-30] MEDS: INSULIN DETEMIR 100 U/ML 3 ML PEN SUBQ SCH ×2 (08:43→20:27)
[2018-09-30 10:26] VITALS: BP 184/109
[2018-09-30] MEDS: INSULIN HUM LISPRO 100 UN/ML 3 ML VIAL SUBQ PRN ×3 (11:54→20:28)
[2018-09-30] MEDS: WARFARIN SOD 5 MG TAB PO SCH (12:27)
--- NOTE | 2018-09-30 12:44 | NUR ---
Physical Therapy Impression Pt able to stand with CGA-Min A with this PT facilitating weight shift into R LE for sensory feedback x7 reps. Pt stood with RW and use of R AFO. Pt also participated in seated R lean onto R UE as well as standing R weight shifts x 1 minute. Recommend acute rehab. Physical Therapy Goals 1. SBA bed mobility. 2. SBA stand pivot transfers. Patient's Goals
--- NOTE | 2018-09-30 13:07 | Hospitalist Progress Note ---
Subjective Progress Notes Subjective He is awake and alert. No fever. Oxygen saturation good on 2L. Physical Exam Vital Signs Date Time Temp Pulse Resp B/P (MAP) Pulse Ox O2 Delivery O2 Flow Rate FiO2 09/30/18 12:18 75 09/30/18 10:26 97.5 20 184/109 (134) 90 Nasal Cannula 2.0 Intake and Output 09/30/18 07:00 Intake Total 753 ml Output Total 675 ml Balance 78 ml Intake Oral 380 ml IV Total 373 ml Output Urine Total 675 ml General Appearance: Alert, Awake Neuro: Other (Right hemiparesis essentially unchanged) Cardiovascular: Regular Rate and Rhythm Respiratory: Other (fairly clear with few scattered rhonchi) GI: Soft and Non-Tender Extremities: Warm, Perfused Result Diagram: 09/29/1853709/29/18537 Assessment and Plan Problems: (1) Embolic stroke Status: Acute Assessment & Plan: His MRI revealed chronic and acute lesions consistent with embolic stroke. He has been on chronic treatment with aspirin and Plavix. He was started on Lovenox and warfarin was added yesterday. Daily INR monitoring has been ordered. He has no documented history of atrial fibrillation - he is on telemetry. Echocardiogram is rather unremarkable. Carotid ultrasound does show plaque, but no significant stenoses. May need to do CT aortography to see if a possible source. (2) Weakness Status: Acute Assessment & Plan: OT/PT to evaluate. (3) Bacterial pneumonia Status: Acute Assessment & Plan: He was discharged a week before admission for pneumonia. He finished azithromycin about 5 days prior to admission and Omnicef 4 days prior to admission. His chest CT showed a right sided infiltrate, but suspect this is residual from his previous pneumonia. Antibiotics have been discontinued. He has remained afebrile. (4) Incontinence Status: Chronic Assessment & Plan: For the last month the patient has had fairly frequent bowel and bladder incontinence. Worse over the last couple of days. May be related to acute illness/CVA. (5) CVA (cerebral vascular accident) Status: Chronic Assessment & Plan: He does have a previous history of stroke, which may have been embolic in origin as well. He was previously on aspirin and Plavix. We have now initiated anticoagulation therapy. Will transition to one antiplatelet. (6) Type 2 diabetes mellitus Status: Chronic Assessment & Plan: Chronically on metformin and Levemir. Metformin being held and Levemir is at reduced in dose. SSI level 2 to cover. (7) Hypertension Status: Chronic Assessment & Plan: He is on chronic treatment with losartan. Exam Sepsis Risk: No Definite Risk EDIN RODRIGUEZ MD Sep 30, 2018 13:07
[2018-09-30] MEDS ORDERED: LOSARTAN POTASSIUM 50 MG TAB PO ONE (13:30)
[2018-09-30 14:46] VITALS: BP 163/84
[2018-09-30 17:32] VITALS: BP 182/100
[2018-09-30 19:30] VITALS: BP 175/93
[2018-10-01] MEDS: LEVOTHYROXINE SOD 0.112 MG TAB PO SCH (05:28)
[2018-10-01 05:59] LABS: INR 1.02
[2018-10-01 07:04] VITALS: BP 140/81
--- NOTE | 2018-10-01 09:11 | Hospitalist Progress Note ---
Subjective Progress Notes Subjective The patient denies new complaints. Nursing staff reports the patient is confused at times. Physical Exam Vital Signs Date Time Temp Pulse Resp B/P (MAP) Pulse Ox O2 Delivery O2 Flow Rate FiO2 10/01/18 07:25 94 Nasal Cannula 1.0 10/01/18 07:04 97.8 71 18 140/81 (100) Intake and Output 10/01/18 07:00 Intake Total 1210 ml Output Total 1300 ml Balance -90 ml Intake Oral 810 ml IV Total 400 ml Output Urine Total 1300 ml # Bowel Movements 1 General Appearance: Alert, Awake, No Acute Distress Neuro: Other (Knew today was Tuesday.) Cardiovascular: Regular Rate and Rhythm Respiratory: Clear to Auscultation (Anteriorly.) GI: Soft and Non-Tender Extremities: Warm, Perfused, Other (No edema.) Psych: Appropriate Mood & Affect Result Diagram: 09/29/1853709/29/18537 Assessment and Plan Problems: (1) Embolic stroke Status: Acute Assessment & Plan: His MRI revealed chronic and acute lesions consistent with embolic stroke. He has been on chronic treatment with aspirin and Plavix. He was started on Lovenox and warfarin was added yesterday. Daily INR monitoring has been ordered. His INR has not changed much on 5mg so will increase to 7.5 mg today. He has no documented history of atrial fibrillation - he is on telemetry. Echocardiogram is rather unremarkable. Carotid ultrasound does show plaque, but no significant stenoses. May need to do CT aortography to see if a possible source. (2) Weakness Status: Acute Assessment & Plan: OT/PT to evaluate. (3) Bacterial pneumonia Status: Acute Assessment & Plan: He was discharged a week before admission for pneumonia. He finished azithromycin about 5 days prior to admission and Omnicef 4 days prior to admission. His chest CT showed a right sided infiltrate, but suspect this is residual from his previous pneumonia. Antibiotics have been discontinued. He has remained afebrile. (4) Incontinence Status: Chronic Assessment & Plan: For the last month the patient has had fairly frequent bowel and bladder incontinence. Worse over the last couple of days. May be related to acute illness/CVA. (5) CVA (cerebral vascular accident) Status: Chronic Assessment & Plan: He does have a previous history of stroke, which may have been embolic in origin as well. He was previously on aspirin and Plavix. We have now initiated anticoagulation therapy. Will transition to one antiplatelet. (6) Type 2 diabetes mellitus Status: Chronic Assessment & Plan: Chronically on metformin and Levemir. Metformin being held and Levemir is at reduced in dose. SSI level 2 to cover. (7) Hypertension Status: Chronic Assessment & Plan: He is on chronic treatment with losartan. Losartan was increased yesterday and his BP is improved this morning. Time Spent on Plan of Care: < 30 min Exam Sepsis Risk: No Definite Risk KAREY RODRIGUEZ MD Oct 01, 2018 09:11
[2018-10-01] MEDS: INSULIN DETEMIR 100 U/ML 3 ML PEN SUBQ SCH ×2 (09:20→20:30)
[2018-10-01] MEDS: ENOXAPARIN 100 MG/ML SYR SC SCH ×2 (09:20→20:28)
[2018-10-01] MEDS: RANITIDINE HCL 150 MG TAB PO SCH ×2 (09:21→20:28)
[2018-10-01] MEDS: PREGABALIN 50 MG CAPSULE PO SCH ×2 (09:21→20:28)
[2018-10-01] MEDS: LOSARTAN POTASSIUM 50 MG TAB PO SCH (09:21)
[2018-10-01 10:29] VITALS: BP 146/87
[2018-10-01] MEDS: INSULIN HUM LISPRO 100 UN/ML 3 ML VIAL SUBQ PRN ×3 (11:19→20:31)
[2018-10-01] MEDS: WARFARIN SOD 5 MG TAB PO SCH (13:09)
[2018-10-01 14:36] VITALS: BP 138/77
[2018-10-01 19:29] VITALS: BP 185/96
[2018-10-01 23:27] VITALS: BP 168/91
[2018-10-02] MEDS: NS(*) 0.9% 1000 ML BAG 1,000 ML IV PRN ×2 (00:56→18:49)
[2018-10-02 04:25] VITALS: BP 169/95
[2018-10-02] MEDS: LEVOTHYROXINE SOD 0.112 MG TAB PO SCH (06:01)
[2018-10-02 06:14] LABS: PLATELET COUNT, AUTOMATED 201 K/uL (150-450)
[2018-10-02 07:26] LABS: INR 1.32
[2018-10-02 07:27] VITALS: BP 149/77
[2018-10-02] MEDS: LOSARTAN POTASSIUM 50 MG TAB PO SCH (08:58)
[2018-10-02] MEDS: RANITIDINE HCL 150 MG TAB PO SCH ×2 (08:58→20:40)
[2018-10-02] MEDS: INSULIN DETEMIR 100 U/ML 3 ML PEN SUBQ SCH ×2 (08:58→20:42)
[2018-10-02] MEDS: ASPIRIN 81 MG ENTERIC COATED PO SCH (08:58)
[2018-10-02] MEDS: ENOXAPARIN 100 MG/ML SYR SC SCH ×2 (08:58→20:41)
[2018-10-02] MEDS: PREGABALIN 50 MG CAPSULE PO SCH ×2 (08:59→20:40)
--- NOTE | 2018-10-02 09:47 | NUR ---
ST Encounter Pt continues with severe, widespread cognitive linguistic deficits. Required max cues to alternate attention between functional tasks with tendency to perseverate on previously discussed topics of conversation. Pt also easily distracted in the presence of competing environmental stim. Impaired attention negatively impacts ability to process and store new information for short-term recall. Pt required continuous, direct instruction to refer to external aides to compensate for deficits in short-term memory. Attempted use of spaced retrieval techniques. Pt unable to retain information >1 min intervals without max cues. Pt aware of reason for hospitalization, but with significant disorganization and confusion re: daily events and purpose. Repeatedly stating, "I don't know what I'm supposed to be doing." Benefits from concrete tasks, direct and simplified language, and external, written reminders. Recommend long- term [facility] at discharge.
--- NOTE | 2018-10-02 10:11 | Hospitalist Progress Note ---
Subjective Progress Notes Subjective He does appear fatigued today. He has no complaints otherwise. Patient Complains of: Cardiovascular: No: Chest Pain Respiratory: No: Shortness of Breath Physical Exam Vital Signs Date Time Temp Pulse Resp B/P (MAP) Pulse Ox O2 Delivery O2 Flow Rate FiO2 10/02/18 09:02 90 10/02/18 09:02 Room Air 10/02/18 07:33 68 10/02/18 07:27 16 149/77 (101) 10/02/18 04:25 97.7 10/01/18 07:25 1.0 Intake and Output 10/02/18 07:00 Intake Total 1270 ml Output Total 1200 ml Balance 70 ml Intake Oral 662 ml IV Total 608 ml Output Urine Total 1200 ml General Appearance: Alert, Awake, No Acute Distress, Afebrile Neuro: Other (appear weak throughout body) Cardiovascular: Regular Rate and Rhythm Respiratory: No Respiratory Distress, Clear to Auscultation GI: Soft and Non-Tender Extremities: Warm, Perfused; No Edema Psych: Appropriate Mood & Affect Result Diagram: 10/02/18 0556 10/02/18 0604 Assessment and Plan Problems: (1) Embolic stroke Status: Acute Assessment & Plan: His MRI revealed chronic and acute lesions consistent with embolic stroke. He has been on chronic treatment with aspirin and Plavix. He was started on Lovenox and warfarin was added 09/30. Daily INR monitoring has bee n ordered. His INR has not changed much on 5mg so will increase to 7.5 mg 10/01. He has no documented history of atrial fibrillation - he is on telemetry. Echocardiogram is rather unremarkable. Carotid ultrasound does show plaque, but no significant stenoses. (2) Weakness Status: Acute Assessment & Plan: OT/PT to evaluate. (3) Bacterial pneumonia Status: Acute Assessment & Plan: He was discharged a week before admission for pneumonia. He finished azithromycin about 5 days prior to admission and Omnicef 4 days prior to admission. His chest CT showed a right sided infiltrate, but suspect this is residual from his previous pneumonia. Antibiotics have been discontinued. He has remained afebrile. (4) Incontinence Status: Chronic Assessment & Plan: For the last month the patient has had fairly frequent bowel and bladder incontinence. Worse over the last couple of days. May be related to acute illness/CVA. (5) CVA (cerebral vascular accident) Status: Chronic Assessment & Plan: He does have a previous history of stroke, which may have been embolic in origin as well. He was previously on aspirin and Plavix. We have now initiated anticoagulation therapy. Will transition to one antiplatelet. (6) Type 2 diabetes mellitus Status: Chronic Assessment & Plan: Chronically on metformin and Levemir. Metformin being held and Levemir is at reduced in dose. SSI level 2 to cover. (7) Hypertension Status: Chronic Assessment & Plan: He is on chronic treatment with losartan. Losartan was increased /. Exam Sepsis Risk: No Definite Risk JOANN SCHMITT MANAGER BUSINESS Oct 02, 2018 10:11
--- NOTE | 2018-10-02 10:32 | NUR ---
Physical Therapy Impression PT/OT co-treat for pt safety and time split for billing purposes. Pt now has AFO and R) knee brace. CG encouraged to bring knee high socks to protect skin with AFO use. Pt required Mod assist x 2 for bed mobility and Max assist x 1-2 for [id number] transfer from bed to bedside chair. Recommend use of EZ lift for nursing staff to transfer pt back to bed when appropriate. Recommend further acute rehab prior to discharge home. Physical Therapy Goals 1. SBA bed mobility. 2. SBA stand pivot transfers. Patient's Goals
[2018-10-02 11:04] VITALS: BP 139/86
[2018-10-02] MEDS: INSULIN HUM LISPRO 100 UN/ML 3 ML VIAL SUBQ PRN ×3 (11:48→20:42)
[2018-10-02] MEDS: WARFARIN SOD 5 MG TAB PO SCH (12:53)
--- NOTE | 2018-10-02 13:03 | NUR ---
Occupational Therapy Impression Right AFO and knee brace donned. Mod A [id number] to sit. Total A LB dressing. Max x1-2 stand pivot bed<>chair with no AD. Recommend EZ lift for nursing staff at this time. Rec acute rehab. Occupational Therapy Goals Patient's Goal
--- NOTE | 2018-10-02 13:04 | NUR ---
Occupational Therapy Impression Right AFO and knee brace donned. Mod A [id number] to sit. Total A LB dressing. Max x1-2 stand pivot bed<>chair with no AD. Recommend EZ lift for nursing staff at this time. Rec extermination supervisor or acute rehab. Occupational Therapy Goals Patient's Goal
[2018-10-02 14:59] VITALS: BP 139/86
[2018-10-02 18:44] VITALS: BP 160/90
[2018-10-02 23:06] VITALS: BP 168/95
[2018-10-03 03:16] VITALS: BP 169/96
[2018-10-03] MEDS: LEVOTHYROXINE SOD 0.112 MG TAB PO SCH (06:25)
[2018-10-03 06:26] LABS: INR 1.72
[2018-10-03 06:52] VITALS: BP 161/104
[2018-10-03] MEDS: INSULIN HUM LISPRO 100 UN/ML 3 ML VIAL SUBQ PRN ×3 (07:41→16:47)
[2018-10-03] MEDS: RANITIDINE HCL 150 MG TAB PO SCH ×2 (08:28→21:27)
[2018-10-03] MEDS: PREGABALIN 50 MG CAPSULE PO SCH ×2 (08:28→21:27)
[2018-10-03] MEDS: amLODIPine BESYL(*) 5 MG TAB PO SCH (08:28)
[2018-10-03] MEDS: INSULIN DETEMIR 100 U/ML 3 ML PEN SUBQ SCH ×2 (08:28→21:26)
[2018-10-03] MEDS: LOSARTAN POTASSIUM 50 MG TAB PO SCH (08:28)
[2018-10-03] MEDS: ENOXAPARIN 100 MG/ML SYR SC SCH ×2 (08:28→21:27)
[2018-10-03] MEDS: ASPIRIN 81 MG ENTERIC COATED PO SCH (08:28)
[2018-10-03 08:29] LABS: PLATELET COUNT, AUTOMATED 221 K/uL (150-450)
[2018-10-03] MEDS ORDERED: KCL (*) 20 MEQ/100 ML PREMIX 100 ML IV ONE (09:10)
[2018-10-03] MEDS: KCL/NS* 20 MEQ/1000 ML PREMIX 1,000 ML IV SCH ×2 (09:38→19:21)
--- NOTE | 2018-10-03 09:39 | Hospitalist Progress Note ---
Subjective Progress Notes Subjective He has no complaints this morning. He had no acute events overnight. Patient Complains of: Cardiovascular: No: Chest Pain Respiratory: No: Shortness of Breath Physical Exam Vital Signs Date Time Temp Pulse Resp B/P (MAP) Pulse Ox O2 Delivery O2 Flow Rate FiO2 10/03/18 06:52 98.2 81 12 161/104 (123) 92 Room Air 10/01/18 07:25 1.0 Intake and Output 10/03/18 07:00 Intake Total 1206 ml Output Total 2650 ml Balance -1444 ml Intake Oral 222 ml IV Total 984 ml Output Urine Total 2650 ml # Bowel Movements 1 General Appearance: Alert, Awake, No Acute Distress, Afebrile Cardiovascular: Regular Rate and Rhythm Respiratory: No Respiratory Distress, Clear to Auscultation GI: Soft and Non-Tender Extremities: Warm, Perfused; No Edema Psych: Appropriate Mood & Affect Result Diagram: 10/03/1880810/03/18808 Assessment and Plan Problems: (1) Embolic stroke Status: Acute Assessment & Plan: His MRI revealed chronic and acute lesions consistent with embolic stroke. He has been on chronic treatment with aspirin and Plavix. He was started on Lovenox and warfarin was added 09/30. Daily INR monitoring has been ordered. His INR has not changed much on 5mg so will increase to 7.5 mg 10/01. He has no documented history of atrial fibrillation - he is on telemetry. Echocardiogram is rather unremarkable. Carotid ultrasound does show plaque, but no significant stenoses. (2) Weakness Status: Acute Assessment & Plan: OT/PT to evaluate. (3) Hypokalemia Status: Acute Assessment & Plan: His potassium is 3.1 today. He will get IV potassium replacement. (4) Bacterial pneumonia Status: Acute Assessment & Plan: He was discharged a week before admission for pneumonia. He finished azithromycin about 5 days prior to admission and Omnicef 4 days prior to admission. His chest CT showed a right sided infiltrate, but suspect this is residual from his previous pneumonia. Antibiotics have been discontinued. He has remained afebrile. (5) Incontinence Status: Chronic Assessment & Plan: For the last month the patient has had fairly frequent bowel and bladder incontinence. Worse over the last couple of days. May be related to acute illness/CVA. Will get UA today, he appears to have cloudy urine output. (6) CVA (cerebral vascular accident) Status: Chronic Assessment & Plan: He does have a previous history of stroke, which may have been embolic in origin as well. He was previously on aspirin and Plavix. We have now initiated anticoagulation therapy. Will transition to one antiplatelet. (7) Type 2 diabetes mellitus Status: Chronic Assessment & Plan: Chronically on metformin and Levemir. Metformin being held and Levemir is at reduced in dose. SSI level 2 to cover. (8) Hypertension Status: Chronic Assessment & Plan: He is on chronic treatment with losartan. Losartan was increased /. Exam Sepsis Risk: No Definite Risk JOANN SCHMITTP Oct 03, 2018 09:39
[2018-10-03 11:49] VITALS: BP 153/86
[2018-10-03] MEDS: WARFARIN SOD 5 MG TAB PO SCH (13:35)
[2018-10-03 15:16] VITALS: BP 161/97
--- NOTE | 2018-10-03 15:30 | NUR ---
Occupational Therapy Impression Mod Ax2 supine to sit with HOB raised. Occasional Min A to provide weight bearing and R) UE support seated EOB [id number] for Max A to don R) knee brace and AFO. Mod Ax2 ambulation x10ft with RW and close chair follow. Assist to manage R) UE for placement on RW. Pt declined toileting. Agreeable to sit up in chair. Rec acute rehab. Occupational Therapy Goals Patient's Goal
[2018-10-03 18:58] VITALS: BP 177/90
[2018-10-03 23:49] VITALS: BP 185/94
[2018-10-04] MEDS: KCL/NS* 20 MEQ/1000 ML PREMIX 1,000 ML IV SCH (03:21)
[2018-10-04 05:07] VITALS: BP 188/103
[2018-10-04] MEDS: LEVOTHYROXINE SOD 0.112 MG TAB PO SCH (05:10)
[2018-10-04 06:06] LABS: INR 2.41
[2018-10-04 07:11] VITALS: BP 190/96
[2018-10-04] MEDS: amLODIPine BESYL(*) 5 MG TAB PO SCH (08:39)
[2018-10-04] MEDS: RANITIDINE HCL 150 MG TAB PO SCH ×2 (08:39→20:29)
[2018-10-04] MEDS: LOSARTAN POTASSIUM 50 MG TAB PO SCH (08:39)
[2018-10-04] MEDS: ASPIRIN 81 MG ENTERIC COATED PO SCH (08:39)
[2018-10-04] MEDS: PREGABALIN 50 MG CAPSULE PO SCH ×2 (08:39→20:29)
[2018-10-04] MEDS: INSULIN DETEMIR 100 U/ML 3 ML PEN SUBQ SCH ×2 (08:40→20:35)
[2018-10-04] MEDS: ENOXAPARIN 100 MG/ML SYR SC SCH (08:40)
[2018-10-04 10:52] VITALS: BP 158/92
--- NOTE | 2018-10-04 11:26 | Hospitalist Progress Note ---
Subjective Progress Notes Subjective He has no complaints this morning. He had no acute events overnight. Patient Complains of: Cardiovascular: No: Chest Pain Respiratory: No: Shortness of Breath Physical Exam Vital Signs Date Time Temp Pulse Resp B/P (MAP) Pulse Ox O2 Delivery O2 Flow Rate FiO2 10/04/18 10:52 97.7 75 18 158/92 (114) 95 Room Air 10/01/18 07:25 1.0 Intake and Output 10/04/18 07:00 Intake Total 1540 ml Output Total 2650 ml Balance -1110 ml Intake Oral 540 ml IV Total 1000 ml Output Urine Total 2650 ml # Bowel Movements 1 General Appearance: Alert, Awake, No Acute Distress, Afebrile Neuro: No Gross deficits Cardiovascular: Regular Rate and Rhythm Respiratory: No Respiratory Distress, Clear to Auscultation Psych: Alert & Oriented X3, Appropriate Mood & Affect Result Diagram: 10/03/18 0809 10/04/18 0520 Assessment and Plan Problems: (1) Embolic stroke Status: Acute Assessment & Plan: His MRI revealed chronic and acute lesions consistent with embolic stroke. He has been on chronic treatment with aspirin and Plavix. He was started on Lovenox and warfarin was added 09/30. Daily INR monitoring has been ordered. His INR has not changed much on 5mg so will increase to 7.5 mg 10/01. His INR is 2.41 10/04. Continue to monitor. He has no documented history of atrial fibrillation - he is on telemetry. Echocardiogram is rather unremarkable. Carotid ultrasound does show plaque, but no significant stenoses. (2) Weakness Status: Acute Assessment & Plan: OT/PT to evaluate. Recommended he do acute rehab prior to returning home. (3) Hypokalemia Status: Acute Assessment & Plan: His potassium is 3.1 10/03. He received IV potassium replacem ent. His potassium is now 3.4, will continue oral replacement. (4) Bacterial pneumonia Status: Acute Assessment & Plan: He was discharged a week before admission for pneumonia. He finished azithromycin about 5 days prior to admission and Omnicef 4 days prior to admission. His chest CT showed a right sided infiltrate, but suspect this is residual from his previous pneumonia. Antibiotics have been discontinued. He has remained afebrile. (5) Incontinence Status: Chronic Assessment & Plan: For the last month the patient has had fairly frequent bowel and bladder incontinence. Worse over the last couple of days. May be related to acute illness/CVA. Performed UA 10/03, urine culture shows no growth currently. (6) CVA (cerebral vascular accident) Status: Chronic Assessment & Plan: He does have a previous history of stroke, which may have been embolic in origin as well. He was previously on aspirin and Plavix. We have now initiated anticoagulation therapy. Will transition to one antiplatelet. (7) Type 2 diabetes mellitus Status: Chronic Assessment & Plan: Chronically on metformin and Levemir. Metformin being held and Levemir is at reduced in dose. SSI level 2 to cover. (8) Hypertension Status: Chronic Assessment & Plan: He is on chronic treatment with losartan. Losartan was increased 09/30. Exam Sepsis Risk: No Definite Risk JOANN SCHMITT BLOCK STACKER Oct 04, 2018 11:26
--- NOTE | 2018-10-04 11:49 | NUR ---
Occupational Therapy Impression Mod Ax1 supine to sit. Occasional Min A to provide weight bearing and R) UE support seated EOB [id number] for Max A to don R) knee brace and AFO. Mod Ax2 ambulation x10ft, x15ft with RW and close chair follow. Assist to manage R) UE for placement on RW. SpO2 WNL on room air. Rec acute rehab when medically appropriate. Occupational Therapy Goals Patient's Goal
[2018-10-04] MEDS: INSULIN HUM LISPRO 100 UN/ML 3 ML VIAL SUBQ PRN ×3 (12:05→20:36)
[2018-10-04] MEDS: POTASSIUM CHL 20 MEQ TABCR PO SCH (12:06)
[2018-10-04] MEDS: WARFARIN SOD 5 MG TAB PO SCH (13:16)
--- NOTE | 2018-10-04 13:43 | NUR ---
ST Encounter Much improved attention to functional tasks this date. Pt continues to exhibit difficulty alternating attention between activities with tendency to perseverate on previously discussed info. Pt also slow to process cues for redirection, and becomes distracted by competing environmental stim. Pt also required continuous, direct instruction to refer to external aides in compensation for deficits in short-term memory. Pt retained new info for <1-min intervals despite provision of external visual aides. Significant disorganization/confusion re: timeline, daily events, and purpose persists. Benefits from simplified language, external written reminders, and summarizing info via teachback to support processing and to verify comprehension. Ultimate goal appears to be to return home. Recommend further acute rehab at d/c.
[2018-10-04 14:18] VITALS: BP 152/85
[2018-10-04 19:26] VITALS: BP 182/96
[2018-10-04 23:30] VITALS: BP 162/93
[2018-10-05 03:03] VITALS: BP 142/91
[2018-10-05] MEDS: LEVOTHYROXINE SOD 0.112 MG TAB PO SCH (05:33)
[2018-10-05 06:07] LABS: INR 3.04
[2018-10-05] MEDS: INSULIN HUM LISPRO 100 UN/ML 3 ML VIAL SUBQ PRN ×4 (07:30→22:28)
[2018-10-05 07:31] VITALS: BP 153/94
[2018-10-05] MEDS: PREGABALIN 50 MG CAPSULE PO SCH ×2 (08:57→22:29)
[2018-10-05] MEDS: RANITIDINE HCL 150 MG TAB PO SCH ×2 (08:57→22:29)
[2018-10-05] MEDS: ASPIRIN 81 MG ENTERIC COATED PO SCH (08:57)
[2018-10-05] MEDS: LOSARTAN POTASSIUM 50 MG TAB PO SCH (08:57)
[2018-10-05] MEDS: POTASSIUM CHL 20 MEQ TABCR PO SCH (08:57)
[2018-10-05] MEDS: amLODIPine BESYL(*) 5 MG TAB PO SCH (08:57)
[2018-10-05] MEDS: INSULIN DETEMIR 100 U/ML 3 ML PEN SUBQ SCH ×2 (08:57→22:31)
[2018-10-05] MEDS: NS(*) 0.9% 1000 ML BAG 1,000 ML IV PRN (09:02)
[2018-10-05 09:18] VITALS: BMI 23.0
--- NOTE | 2018-10-05 11:03 | Hospitalist Progress Note ---
Subjective Progress Notes Subjective He has no complaints this morning. He had no acute events overnight. Patient Complains of: Cardiovascular: No: Chest Pain Respiratory: No: Shortness of Breath Physical Exam Vital Signs Date Time Temp Pulse Resp B/P (MAP) Pulse Ox O2 Delivery O2 Flow Rate FiO2 10/05/18 07:37 90 Room Air 10/05/18 07:31 98.1 84 16 153/94 (113) 10/01/18 07:25 1.0 Intake and Output 10/05/18 07:00 Intake Total 550 ml Output Total 1975 ml Balance -1425 ml Intake Oral 550 ml Output Urine Total 1975 ml # Bowel Movements 2 General Appearance: Alert, Awake, No Acute Distress, Afebrile Neuro: Other (weakness throughout body) Cardiovascular: Regular Rate and Rhythm Respiratory: No Respiratory Distress, Clear to Auscultation GI: Soft and Non-Tender Psych: Appropriate Mood & Affect Result Diagram: 10/03/18 0809 10/05/18 0530 Assessment and Plan Problems: (1) Embolic stroke Status: Acute Assessment & Plan: His MRI revealed chronic and acute lesions consistent with embolic stroke. He has been on chronic treatment with aspirin and Plavix. He was started on Lovenox and warfarin was added 09/30. Daily INR monitoring has been ordered. His INR has not changed much on 5mg so will increase to 7.5 mg 10/01. His INR is 2.41 10/04. Continue to monitor. He has no documented history of atrial fibrillation - he is on telemetry. Echocardiogram is rather unremarkable. Carotid ultrasound does show plaque, but no significant stenoses. (2) Weakness Status: Acute Assessment & Plan: OT/PT to evaluate. Recommended he do acute rehab prior to returning home. (3) Hypokalemia Status: Acute Assessment & Plan: His potassium is 3.1 10/03. He received IV potassium replacement. His potassium is now 3.4, will continue oral replacement. (4) Bacterial pneumonia Status: Acute Assessment & Plan: He was discharged a week before admission for pneumonia. He finished azithromycin about 5 days prior to admission and Omnicef 4 days prior to admission. His chest CT showed a right sided infiltrate, but suspect this is residual from his previous pneumonia. Antibiotics have been discontinued. He has remained afebrile. (5) Incontinence Status: Chronic Assessment & Plan: For the last month the patient has had fairly frequent bowel and bladder incontinence. Worse over the last couple of days. May be related to acute illness/CVA. Performed UA 10/03, urine culture shows no growth currently. (6) CVA (cerebral vascular accident) Status: Chronic Assessment & Plan: He does have a previous history of stroke, which may have been embolic in origin as well. He was previously on aspirin and Plavix. We have now initiated anticoagulation therapy. Will transition to one antiplatelet, just aspirin. (7) Type 2 diabetes mellitus Status: Chronic Assessment & Plan: Chronically on metformin and Levemir. He is not eating and drinking well, but sugars continue to be elevated. Metformin being held until he is eating better and Levemir is at reduced in dose. SSI level 3 to cover. (8) Hypertension Status: Chronic Assessment & Plan: He is on chronic treatment with losartan. Losartan was increased 09/30. Exam Sepsis Risk: No Definite Risk Problem Qualifiers (1) Hypertension: Hypertension type: essential hypertension Qualified Codes: I10 - Essential (primary) hypertension JOANN SCHMITT Oct 05, 2018 11:03
[2018-10-05 11:24] VITALS: BP 151/92
[2018-10-05] MEDS ORDERED: WARFARIN SOD 5 MG TAB PO SCH (13:00)
[2018-10-05 14:17] VITALS: BP 161/86
[2018-10-05 15:00] VITALS: Ht 175.3 cm; Wt 70.8 kg
--- NOTE | 2018-10-05 15:09 | NUR ---
Physical Therapy Impression Late Entry for PT/OT co-treat completed 10/03/18. PT applied pt's AFO and knee brace prior to ambulation trng with FWW and Chair follow. Pt fatigues quickly but demos improved weight shifting and clearance of hemiparetic side. Physical Therapy Goals 1. SBA bed mobility. 2. SBA stand pivot transfers. Patient's Goals
--- NOTE | 2018-10-05 15:10 | NUR ---
Physical Therapy Impression Pt had good effort during session, he did fatigue quickly. Pt was able to scoot to EOB with min assist and cue. Then sit unsupported EOB with poor posture with close SBA. Pt able to amb with step to gait pattern, with fair floor clearance, contact cues for right knee extension during stance phase. With fatigue pt needed max assistance to advance RLE. Physical Therapy Goals 1. SBA bed mobility. 2. SBA stand pivot transfers. Patient's Goals Addendum: 10/07/18 at 0206 by ASHLEY LYON PT this visit note from 10/04/18
--- NOTE | 2018-10-05 15:11 | NUR ---
Physical Therapy Impression Pt not seen by PT on 10/05/18 due to staffing concerns, however, OT did address mobility with assistance from nursing and pt is anticipating d/c to further rehab facility on 10/06/18. Physical Therapy Goals 1. SBA bed mobility. 2. SBA stand pivot transfers. Patient's Goals
--- NOTE | 2018-10-05 16:38 | NUR ---
Occupational Therapy Impression Mod Ax1 supine to sit. Occasional Min A to provide weight bearing and R) UE support seated EOB [id number] for Max A to don R) knee brace and AFO. Max Ax1 ambulation x20ft with RW and close chair follow. Assist to manage R) UE for placement on RW. SpO2 WNL on room air. Rec acute rehab when medically appropriate. Occupational Therapy Goals Patient's Goal
[2018-10-05 22:36] VITALS: BP 163/91
[2018-10-06] MEDS: NS(*) 0.9% 1000 ML BAG 1,000 ML IV PRN (00:29)
[2018-10-06 03:27] VITALS: BP 145/84
[2018-10-06] MEDS: LEVOTHYROXINE SOD 0.112 MG TAB PO SCH (06:05)
[2018-10-06 06:23] LABS: INR 2.79
[2018-10-06 07:09] VITALS: BP 170/110
[2018-10-06] MEDS: INSULIN HUM LISPRO 100 UN/ML 3 ML VIAL SUBQ PRN (07:21)
[2018-10-06 07:48] LABS: PLATELET COUNT, AUTOMATED 233 K/uL (150-450)
[2018-10-06] MEDS ORDERED: AMLO-125 PO (08:13)
[2018-10-06] MEDS ORDERED: ASPI81TA86 PO (08:13)
[2018-10-06] MEDS ORDERED: POTA20TA94 PO (08:13)
[2018-10-06] MEDS ORDERED: LOSA100T75 PO (08:13)
[2018-10-06] MEDS ORDERED: WARF-1 PO (08:13)
--- NOTE | 2018-10-06 08:18 | Hospitalist Depart ---
Discharge Summary Reason for Hosp/Final Diag: (1) Embolic stroke Status: Acute Hospital Course & Plan: His MRI revealed chronic and acute lesions consistent with embolic stroke. He has been on chronic treatment with aspirin and Plavix. He was started on Lovenox and warfarin was added 09/30. Daily INR monitoring was ordered. His INR is within range with 5mg warfarin. He has no documented history of atrial fibrillation - he was on telemetry. Echocardiogram is rather unremarkable. Carotid ultrasound does show plaque, but no significant stenoses. He will be transferred to [facility] [place] for continued therapy. (2) Weakness Status: Acute Hospital Course & Plan: OT/PT evaluated. Recommended he do acute rehab prior to returning home. (3) Hypokalemia Status: Acute Hospital Course & Plan: His potassium was 3.1 10/03. He received IV potassium replacement. His potassium is now 3.6, will continue oral replacement. (4) Bacterial pneumonia Status: Acute Hospital Course & Plan: He was discharged a week before admission for pneumonia. He finished azithromycin about 5 days prior to admission and Omnicef 4 days prior to admission. His chest CT showed a right sided infiltrate, but suspect this is residual from his previous pneumonia. Antibiotics have been discontinued. He has remained afebrile. (5) Incontinence Status: Chronic Hospital Course & Plan: For the last month the patient has had fairly frequent bowel and bladder incontinence. Worse over the last couple of days. May be related to acute illness/CVA. Performed UA 10/03, urine culture shows no growth currently. (6) CVA (cerebral vascular accident) Status: Chronic Hospital Course & Plan: He does have a previous history of stroke, which may have been embolic in origin as well. He was previously on aspirin and Plavix. We have now initiated anticoagulation therapy. Will transition to one antiplatelet, just aspirin. (7) Type 2 diabetes mellitus Status: Chronic Hospital Course & Plan: Chronically on metformin and Levemir. He was not eating and drinking well, but sugars continue to be elevated. Metformin will be resumed and Levemir at usual dose. SSI level 3 to cover during admission. He requires encouragement to eat. (8) Hypertension Status: Chronic Hospital Course & Plan: He is on chronic treatment with losartan. Losartan was increased 09/30. Amlodipine added. Departure Latest Vital Signs Vital Signs 10/01/18 10/06/1819 07:25 07:09 07:16 Temp 98.2 Pulse 86 Resp 16 B/P (MAP) 170/110 (130) Pulse Ox 92 O2 Delivery Room Air O2 Flow Rate 1.0 Weight (Pounds): 156 Result Diagram: 10/06/18 0732 10/05/18529 Condition: Improved Discharge: Rehab Facility PT/OT Follow Up For: PT For Strengthening, OT For ADL's, PT Evaluation and Treat, ST Evaluation and Treat, OT Evaluation and Treat Discharge Instructions Home Meds Active Scripts Warfarin Sodium (COUMADIN) 5 Mg Tablet, 5 MG PO QDAY@13, #30 TAB Prov:JOANN SCHMITT [facility] 10/06/18 Potassium Chloride (POTASSIUM CHLORIDE) 20 Meq Tab.er.prt, 20 MEQ PO QDAY, #30 TAB Prov:JOANN SCHMITT [facility] 10/06/18 Amlodipine Besylate (AMLODIPINE BESYLATE) 5 Mg Tablet, 5 MG PO QDAY, #30 TAB Prov:JOANN SCHMITT [facility] 10/06/18 Aspirin (ASPIRIN EC) 81 Mg Tablet.dr, 81 MG PO QDAY, #30 TAB Prov:JOANN SCHMITT [facility] 10/06/18 Losartan Potassium (LOSARTAN POTASSIUM) 100 Mg Tablet, 100 MG PO QDAY, #30 TAB Prov:JOANN SCHMITT [facility] 10/06/18 Rosuvastatin Calcium (CRESTOR) 5 Mg Tablet, 5 MG PO QDAY, #90 TAB 3 Refills Prov:WANG MOISE MD 08/17/18 Insulin Detemir (LEVEMIR) 100 Unit/Ml Injs, 12 UNIT SUBQ BID for 90 Days, #5 SYR 9 Refills Add 2 units every 3 days until fasting blood sugars 120 or less maximum dose is 40 units per 24 hours Prov:WANG MOISE MD 08/17/18 Levothyroxine Sodium (LEVOTHYROXINE SODIUM) 0.112 Mg Tab, 0.112 MG PO QDAY, #90 TAB 3 Refills Prov:WANG MOISE MD 08/17/18 Pregabalin (LYRICA) 100 Mg Capsule, 100 MG PO BID, #180 CAPSULE 3 Refills Prov:WANG MOISE MD 08/17/18 [place], Insulin Disposable (Bd Ultra-Fine Pen Needle) 1 Each Dis.needle, BOX MC QDAY, #1 3 Refills use to administer insulin twice daily. Prov:WANG MOISE MD 06/19/18 Metformin Hcl (METFORMIN HCL) 1,000 Mg Tablet, 1 TAB PO BID, #180 TAB 3 Refills Prov:JORGITO LIZ MD 07/28/17 Reported Medications Magnesium Oxide (MAGNESIUM OXIDE) 400 Mg Tablet, 400 MG PO QDAY 09/12/18 Ranitidine Hcl (ZANTAC) 150 Mg Tablet, 150 MG PO BID, TAB 3 Discontinued Reported Medications Aspirin (ASPIRIN) 325 Mg Tablet, 325 MG PO QDAY, TAB 02/09/17 Discontinued Scripts Cefdinir 300 Mg Cap (OMNICEF 300 MG CAP (OR EQUIV)) 300 Mg Cap, 300 MG PO BID, #6 CAP Prov:MARIELA ARCHULETA DO 09/21/18 Azithromycin 250 Mg Tab (AZITHROMYCIN 250 MG TAB) 250 Mg Tablet, 1 TAB PO QDAY, #2 TAB Prov:MARIELA ARCHULETA DO 09/21/18 Losartan Potassium (LOSARTAN POTASSIUM) 50 Mg Tablet, 50 MG PO QDAY, #90 TAB 3 Refills Prov:WANG MOISE MD 09/12/18 Clopidogrel Bisulfate (CLOPIDOGREL) 75 Mg Tablet, 1 TAB PO QDAY, #90 TAB 3 Refills Prov:WANG MOISE MD 05/18/18 Diet: Regular Activity: As Tolerated, With Walker Copies to: WANG MOISE MD ; Venous Thromboembolism Antithrombotics Is Pt On Any Antithrombotics?: No Problem Qualifiers (1) Hypertension: Hypertension type: essential hypertension Qualified Codes: I10 - Essential (primary) hypertension JOANN SCHMITT Oct 06, 2018 08:17
--- NOTE | 2018-10-06 08:46 | NUR ---
OCCUPATIONAL THERAPY Dressing Assistance: Deshawn Caba LB dressing including right AFO and knee brace Bathing Assistance: N/T with OT Home Assessment: Not Completed Feeding Assistance: Set-up Toilet Use: Deshawn Caba Verbalizes Needs: Yes Understands Precautions: Yes Cooperative: No Family Teaching: Yes Occupational Therapy Comment:
[2018-10-06] MEDS: RANITIDINE HCL 150 MG TAB PO SCH (09:07)
[2018-10-06] MEDS: amLODIPine BESYL(*) 5 MG TAB PO SCH (09:07)
[2018-10-06] MEDS: ASPIRIN 81 MG ENTERIC COATED PO SCH (09:07)
[2018-10-06] MEDS: LOSARTAN POTASSIUM 50 MG TAB PO SCH (09:07)
[2018-10-06] MEDS: POTASSIUM CHL 20 MEQ TABCR PO SCH (09:07)
[2018-10-06] MEDS: INSULIN DETEMIR 100 U/ML 3 ML PEN SUBQ SCH (09:07)
[2018-10-06] MEDS: PREGABALIN 50 MG CAPSULE PO SCH (09:07)
== END 2018-10-06 09:55 | DRG 64 ==
LOC: ER 19:10 → MED 09-28 01:14
PROVIDERS: ADMIT Internal Medicine; ATTEND Internal Medicine
DX: I63.9 Cerebral infarction, unspecified (principal); J15.9 Unspecified bacterial pneumonia; I48.2 Chronic atrial fibrillation; E87.6 Hypokalemia; R09.02 Hypoxemia; R32 Unspecified urinary incontinence; E11.9 Type 2 diabetes mellitus without complications; I10 Essential (primary) hypertension; Z79.84 Long term (current) use of oral hypoglycemic drugs
CPT/HCPCS: 36415; 36416; 36600; 70450; 70551; 71045; 71275; 80305; 80320; 81001; 82040; 82247; 82310; 82374; 82435; 82550; 82565; 82803; 82947; 82948; 83605; 84075; 84132; 84155; 84295; 84450; 84460; 84484; 84520; 85025; 85610; 85730; 87040; 87088; 92523; 93005; 93306; 93880; 96374; 97162; 97166; 99285; C1758; J0743; J1650; J1815; J1956; J3480; J7030; J7050; Q9967

== ENCOUNTER → 2018-09-27 | Outpatient (CLI) | payer MEDICARE, OTHER ==
[~2018-09-27] MED LIST changes: +AMLO-125 PO; +ASPI81TA86 PO; +POTA20TA94 PO; +WARF-1 PO
[2018-09-28 14:40] VITALS: BMI 23.0
== END ==
LOC: AMB 18:26
PROVIDERS: ATTEND Nurse Practitioner
DX: E11.65 Type 2 diabetes mellitus with hyperglycemia (principal); R53.1 Weakness; R09.02 Hypoxemia
CPT/HCPCS: A0425; A0427